=== PATIENT | male | born 1960 | race Caucasian/White ===

== ENCOUNTER 2018-02-03 18:32 | Inpatient (IN) | payer OTHER ==
[2018-02-03] VITALS (7 sets, daily range): BP systolic 98–129; BP diastolic 67–110
[~2018-02-03] VITALS: Ht 172.7 cm; Wt 85.5 kg
--- OUTSIDE RECORDS SUMMARY | 2018-02-03 18:38 | XMS REPORT ---
Author Author ROGER ANTONIO [facility] eClinicalWorks Address Unknown Phone Unavailable Care Team Providers Care Principal Programmer Name Role Phone ROGER ANTONIO CP Unavailable Allergies, Adverse Reactions, Alerts Substance Reaction Event Type N.K.D.A. Info Not Available Non Drug Allergy Problems Problem Type Condition Code Onset Dates Condition Status Problem Coronary artery disease involving [place] coronary artery of [place] heart without angina pectoris I25.10 Active Problem Cigarette nicotine dependence without complication F17.210 Active Problem Hyperlipidemia, unspecified hyperlipidemia type E78.5 Active Assessment Cigarette nicotine dependence without complication F17.210 Active Assessment Routine adult health maintenance Z00.00 Active Assessment Hyperlipidemia, unspecified hyperlipidemia type E78.5 Active Assessment Coronary artery disease involving [place] coronary artery of [place] heart without angina pectoris I25.10 Active Medications Medication Code System Code Instructions Start Date End Date Status Dosage Simvastatin [facility] [address]-67 40 mg Orally q d, hs Aug 09, 2013 1 tablet by Oral route 1 time per day Aspirin [facility] [place] [address]-20 325 MG Orally Once a day 1 tablet Atenolol [facility] [place] [address]-83 50 mg Orally Once a day Aug 09, 2013 1 tablet by Oral route 1 time per day Procedures Procedure Coding System Code Date LIPID PANEL CPT-4 11697 Feb 13, 2016 VENIPUNCT, ROUTINE* CPT-4 71089 Feb 13, 2016 COMPREHEN METABOLIC PANEL CPT-4 24781 Feb 13, 2016 Office Visit, Est Pt., Level 4 CPT-4 64166 Feb 13, 2016 Vital Signs Date/Time: Feb 13, 2016 Cardiac Monitoring Heart Rate 88 bpm Weight 207 lbs Height 68 in BMI 31.47 Index Blood Pressure Diastolic 88 mmHg Blood Pressure Systolic 152 mmHg Results No Known Results Summary Purpose eClinicalWorks Submission
--- OUTSIDE RECORDS SUMMARY | 2018-02-03 18:38 | XMS REPORT ---
Author Author ROGER ANTONIO [facility] eClinicalWorks Address Unknown Phone Unavailable Care Team Providers Care Ordnance Truck Installation Supervisor Name Role Phone ROGER ANTONIO CP Unavailable Allergies, Adverse Reactions, Alerts Substance Reaction Event Type N.K.D.A. Info Not Available Non Drug Allergy Problems Problem Type Condition Code Onset Dates Condition Status Problem Urinary tract infection, site not specified 599.0 Active Problem Contusion of unspecified site 924.9 Active Problem Hematuria, unspecified 599.70 Active Medications Medication Code System Code Instructions Start Date End Date Status Dosage Aspirin [facility] [address]-16 325 MG Orally Once a day 1 tablet Results No Known Results Summary Purpose eClinicalWorks Submission
[2018-02-03] MEDS ORDERED: ASPIRIN 81 MG CHEW (CHILDREN'S ASA) PO ONE (18:45)
[2018-02-03] MEDS ORDERED: ASPI-808 PO (18:50)
[2018-02-03 18:51] LABS: BASOPHILS % (AUTO) 0 % (0-10); EOSINOPHILS # (AUTO) 0.1 10^3/uL (0.0-0.3); EOSINOPHILS % (AUTO) 1 % (0-10); HEMATOCRIT 43 % (40-54); LYMPHOCYTES % (AUTO) 22 % (12-44); MEAN CORPUSCULAR HEMOGLOBIN 32 PG (25-34); MEAN CORPUSCULAR HGB CONC 35 G/DL (32-36); MEAN CORPUSCULAR VOLUME 91 FL (80-99); MEAN PLATELET VOLUME 11.2 FL (7.4-10.4); MONOCYTES # (AUTO) 0.7 X 10^3 (0.0-1.0); MONOCYTES % (AUTO) 7 % (0-12); NEUTROPHILS # (AUTO) 6.2 X 10^3 (1.8-7.8); NEUTROPHILS % (AUTO) 69 % (42-75); PLATELET COUNT 213 10^3/uL (130-400); RED BLOOD COUNT 4.73 10^6/uL (4.35-5.85); RED CELL DISTRIBUTION WIDTH 14.3 % (10.0-14.5); WHITE BLOOD COUNT 9.1 10^3/uL (4.3-11.0)
--- NOTE | 2018-02-03 18:54 | ED Chest Pain ---
General Chief Complaint: Chest Pain Stated Complaint: CP, HEART BURN Nursing Triage Note: PT REPORTS HE STARTED HAVING BURNING MEDIAL L CHEST PAIN UNDER L BREAST ABOUT 4-5 HRS AGO. PT REPORTS HE WAS DRINKING COFFEE AT THE TIME. PT DENIES SOA, PALPITATIONS, OR RACING HEART. Nursing Sepsis Screen: No Definite Risk Source: patient Exam Limitations: no limitations History of Present Illness Date Seen by Provider: Feb 03, 2018 Time Seen by Provider: 18:35 Initial Comments PT ARRIVES VIA POV FROM HOME C/O LEFT LOWER CHEST PAIN FOR THE PAST 4-5 HOURS BEGAN WHILE DRINKING COFFEE STATES PAIN WAS 5/10 EARLIER, IS 3/10 NOW. NO RADIATION OF PAIN NOTHING WORSENS OR SIGNIFICANTLY IMPROVES PAIN--BELCHING HELPED SLIGHTLY STATES PAIN "IS LIKE HEARTBURN--BURNING" STATES "I NEVER HAVE HEARTBURN" STATES HE HAD AN MO 8-9 YEARS AGO ( ACTUALLY IN 2009 ) "THE -MAKER" PER PT --STATES THIS PAIN IS EXACTLY THE SAME. 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 ANTONIO--HAS NOT SEEN IN OVER A YEAR Allergies and Home Medications Allergies Coded Allergies: No Known Drug Allergies (Verified , 07/26/09) Patient Home Medication List Home Medication List Reviewed: Yes Review of Systems Constitutional: no symptoms reported; No diaphoresis, No dizziness, No fever, No malaise EENTM: No Symptoms Reported Respiratory: No Symptoms Reported; Denies Cough, Denies Orthopnea, Denies Shortness of Air Cardiovascular: See HPI, Chest Pain; Denies Edema, Denies Irregular Heart Rate , Denies Lightheadedness, Denies Palpitations, Denies Syncope Gastrointestinal: No Symptoms Reported; Denies Abdominal Pain, Denies Nausea Genitourinary: No Symptoms Reported Musculoskeletal: no symptoms reported; No back pain Skin: no symptoms reported Psychiatric/Neurological: See HPI, Headache (FOR A FEW DAYS) Endocrine: No Symptoms Reported Hematologic/Lymphatic: No Symptoms Reported Past Rvdrczs-Mrregv-Acneow Hx Patient Social History Alcohol Use: Past History (HISTORY OF ABUSE, CLAIMS NONE X 30 YEARS, PER PT ON 02/03/18) Recreational Drug Use: Yes (THC, + IV METH--CLAIMS NONE FOR 30 YEARS, PER PT ON 02/03/18) Drug of Choice: THC, + IV METH USE BY HX Smoking Status: Current Everyday Smoker (1 PPD) Type Used: Cigarettes Recent Foreign Travel: No Contact w/Someone Who Travel: No Recent Infectious Disease Expo: No Recent Hopitalizations: No Physical Abuse: No Sexual Abuse: No Mistreated: No Fear: No Past Medical History Surgeries: Yes (CARDIAC CATH--STENT X 1 IN LAD IN 2009) Adenoidectomy, Cardiac, Coronary Stent, Tonsillectomy Respiratory: No Cardiac: Yes (QUIT TAKING BLOOD PRESSURE AND CHOLESTEROL MEDICATIONS YEARS AGO. MO WITH STENT X 1 IN LAD IN 2009) Coronary Artery Disease, Heart Attack, High Cholesterol, Hypertension Neurological: No Reproductive Disorders: No Genitourinary: No Gastrointestinal: No Musculoskeletal: Yes (PLANTAR FASCITIS) Endocrine: No HEENT: No Cancer: No Psychosocial: No Nursing Suicide Risk Score: 0 Integumentary: No Blood Disorders: No Physical Exam Vital Signs Vital Signs - First Documented Capillary Refill : Less Than 3 Seconds Height, Weight, BMI Height: 5'8.00" Weight: 210lbs. oz. 95.239861qk; BMI Method:Stated General Appearance: No Apparent Distress, WD/WN, Other (REEKS OF CIGARETTES) HEENT: PERRL/EOMI, Other (EDENTULOUS) Neck: Full Range of Motion, Normal Inspection, Non Tender, Supple; No Carotid Bruit, No JVD Respiratory: Chest Non Tender, Normal Breath Sounds, No Accessory Muscle Use, No Respiratory Distress Cardiovascular: Regular Rate, Rhythm, No Edema, No JVD, No Murmur, Normal Peripheral Pulses Gastrointestinal: Normal Bowel Sounds, No Organomegaly, No Pulsatile Mass, Non Tender, Soft Extremity: Normal Capillary Refill, Normal Inspection, Normal Range of Motion, Non Tender, No Calf Tenderness, No Pedal Edema Neurologic/Psychiatric: Alert, Oriented x3, No Motor/Sensory Deficits, Normal Mood/Affect, factory helper II-XII Norm as Tested Skin: Normal Color, Tattoos/Piercings (TATTOOS) Progress/Results/Core Measures Results/Orders Lab Results Laboratory Tests Test 02/03/18 18:44 02/03/18 19:44 Range/Units White Blood Count 9.1 4.3-11.0 10^3/uL Red Blood Count 4.73 4.35-5.85 10^6/uL Hemoglobin 15.0 13.3-17.7 G/DL Hematocrit 43 40-54 % Mean Corpuscular Volume 91 80-99 FL Mean Corpuscular Hemoglobin 32 25-34 PG Mean Corpuscular Hemoglobin Concent 35 32-36 G/DL Red Cell Distribution Width 14.3 10.0-14.5 % Platelet Count 213 130-400 10^3/uL Mean Platelet Volume 11.2 H 7.4-10.4 FL Neutrophils (%) (Auto) 69 42-75 % Lymphocytes (%) (Auto) 22 12-44 % Monocytes (%) (Auto) 7 0-12 % Eosinophils (%) (Auto) 1 0-10 % Basophils (%) (Auto) 0 0-10 % Neutrophils # (Auto) 6.2 1.8-7.8 X 10^3 Lymphocytes # (Auto) 2.0 1.0-4.0 X 10^3 Monocytes # (Auto) 0.7 0.0-1.0 X 10^3 Eosinophils # (Auto) 0.1 0.0-0.3 10^3/uL Basophils # (Auto) 0.0 0.0-0.1 10^3/uL Prothrombin Time 14.0 12.2-14.7 SEC INR Comment 1.1 0.8-1.4 Activated Partial Thromboplast Time 45 H 24-35 SEC Sodium Level 136 135-145 MMOL/L Potassium Level 3.8 3.6-5.0 MMOL/L Chloride Level 103 98-107 MMOL/L Carbon Dioxide Level 23 21-32 MMOL/L Anion Gap 10 5-14 MMOL/L Blood Urea Nitrogen 7 7-18 MG/DL Creatinine 0.83 0.60-1.30 MG/DL Estimat Glomerular Filtration Rate > 60 BUN/Creatinine Ratio 8 Glucose Level 100 70-105 MG/DL Calcium Level 9.1 8.5-10.1 MG/DL Magnesium Level 1.8 1.8-2.4 MG/DL Total Bilirubin 0.4 0.1-1.0 MG/DL Aspartate Amino Transf (AST/SGOT) 13 5-34 U/L Alanine Aminotransferase (ALT/SGPT) 14 0-55 U/L Alkaline Phosphatase 74 40-136 U/L Total Creatine Kinase 189 30-200 U/L Creatine Kinase MB 3.3 <6.6 NG/ML Myoglobin 106.9 H 10.0-92.0 NG/ML Troponin I < 0.30 <0.30 NG/ML B-Type Natriuretic Peptide 28.6 <100.0 PG/ML Total Protein 6.8 6.4-8.2 GM/DL Albumin 4.2 3.2-4.5 GM/DL Amylase Level 58 25-125 U/L Lipase 12 8-78 U/L Serum Alcohol < 10 <10 MG/DL Urine Color YELLOW Urine Clarity CLEAR Urine pH 7 5-9 Urine Specific [place] 1.010 L 1.016-1.022 Urine Protein NEGATIVE NEGATIVE Urine Glucose (UA) NEGATIVE NEGATIVE Urine Ketones NEGATIVE NEGATIVE Urine Nitrite NEGATIVE NEGATIVE Urine Bilirubin NEGATIVE NEGATIVE Urine Urobilinogen NORMAL NORMAL MG/DL Urine Leukocyte Esterase 1+ H NEGATIVE Urine RBC (Auto) 2+ H NEGATIVE Urine RBC 2-5 H /HPF Urine WBC 0-2 /HPF Urine Crystals NONE /LPF Urine Bacteria NONE /HPF Urine Casts NONE /LPF Urine Mucus NEGATIVE /LPF Urine Culture Indicated NO Urine Opiates Screen NEGATIVE NEGATIVE Urine Oxycodone Screen NEGATIVE NEGATIVE Urine Methadone Screen NEGATIVE NEGATIVE Urine Propoxyphene Screen NEGATIVE NEGATIVE Urine Barbiturates Screen NEGATIVE NEGATIVE Ur Tricyclic Antidepressants Screen NEGATIVE NEGATIVE Urine Phencyclidine Screen NEGATIVE NEGATIVE Urine Amphetamines Screen NEGATIVE NEGATIVE Urine Methamphetamines Screen NEGATIVE NEGATIVE Urine Benzodiazepines Screen NEGATIVE NEGATIVE Urine Cocaine Screen NEGATIVE NEGATIVE Urine Cannabinoids Screen NEGATIVE NEGATIVE My Orders Orders - EVA PERDUE DO Cbc With Automated Diff (02/03/18 18:38) Magnesium (02/03/18 18:38) Chest 1 View, Ap/Pa Only (02/03/18 18:38) Ekg Tracing (02/03/18 18:38) Cardiac Profile 1 (02/03/18 18:38) Comprehensive Metabolic Panel (02/03/18 18:38) Myoglobin Serum (02/03/18 18:38) Protime With Inr (02/03/18 18:38) Partial Thromboplastin Time (02/03/18 18:38) O2 (02/03/18 18:38) Monitor-Rhythm Ecg Trace Only (02/03/18 18:38) Aspirin Chewable Tablet (Baby Aspirin Ch (02/03/18 18:45) Nitroglycerin 0.4 Mg Btl 25's (Nitrostat (02/03/18 18:45) Saline Lock/Iv-Start (02/03/18 18:38) Creatine Kinase (02/03/18 18:38) Creatine Kinase Mb (02/03/18 18:38) Lipase (02/03/18 18:38) Amylase (02/03/18 18:38) BNP (02/03/18 18:38) Alcohol (02/03/18 18:47) Drug Screen Stat (Urine) (02/03/18 18:47) Ua Culture If Indicated (02/03/18 18:47) Clopidogrel Tablet (Plavix Tablet) (02/03/18 19:45) Medications Given in ED Current Medications Medications Dose Ordered Sig/Adams Route Start Time Stop Time Status Last Admin Dose Admin Clopidogrel Bisulfate 300 mg ONCE ONCE PO 02/03/18 19:45 02/03/18 19:46 DC 02/03/18 19:56 300 MG Nitroglycerin 0.4 mg UD PRN SL 02/03/18 18:45 02/03/18 19:47 DC 02/03/18 19:42 0.4 MG Vital Signs/I&O 02/03/18 02/03/18 18:37 18:37 Temp 98.9 Pulse 75 Resp 20 B/P (MAP) 161/45 (83) Pulse Ox 98 O2 Delivery Room Air Room Air Blood Pressure Mean: 83 Progress Progress Note : Progress Note GIVEN NTG SL X 3 WITH RESOLUTION OF CHEST PAIN UNEVENTFUL ER STAY Initial ECG Impression Date: Feb 03, 2018 Initial ECG Impression Time: 18:40 Initial ECG Rate: 71 Initial ECG Rhythm: Normal Sinus Initial ECG Impression: Nonspecific Changes Initial ECG Comparisson: No Previous ECG Available Diagnostic Imaging Comments CXR--NO ACUTE PROCESS, PER RADIOLOGIST REPORT @ 1933 Reviewed: Reviewed by Me Departure Communication (Admissions) 1936--SPOKE WITH DR. ZUNIGA, CROSS COUNTRY/TRACK AND FIELD COACH AEROSPACE PROJECT ENGINEER. WILL SEE PT IN CONSULT. ORDERS NOTED FOR PLAVIX 1939--SPOKE WITH DR. OLIVEROS, HOSPITALIST AEROSPACE PROJECT ENGINEER, ACCEPTS PT FOR ADMIT. Impression Primary Impression: Chest pain Additional Impressions: HX OF MO WITH STENT Smoker Disposition: ADMITTED INPATIENT Condition: Improved Admissions Decision to Admit Reason: Admit from ER (General) Decision to Admit/Date: Feb 03, 2018 Time/Decision to Admit Time: 19:40 Departure-Patient Inst. Referrals: ROGER ANTONIO MD (PCP) Primary Care Physician EVA PERDUE DO Feb 03, 2018 18:54
[2018-02-03 19:03] LABS: INR 1.1 (0.8-1.4)
[2018-02-03] MEDS: NITROGLYCERIN 0.4 MG SL TABS BTL 25'S SL PRN ×3 (19:05→19:42)
[2018-02-03 19:11] LABS: ALANINE AMINOTRANSFERASE 14 U/L (0-55); ALBUMIN 4.2 GM/DL (3.2-4.5); ALKALINE PHOSPHATASE 74 U/L (40-136); AMYLASE 58 U/L (25-125); BILIRUBIN,TOTAL 0.4 MG/DL (0.1-1.0); BUN/CREATININE RATIO 8; CALCIUM 9.1 MG/DL (8.5-10.1); CARBON DIOXIDE 23 MMOL/L (21-32); CHLORIDE 103 MMOL/L (98-107); CREATINE KINASE 189 U/L (30-200); CREATININE SERUM 0.83 MG/DL (0.60-1.30); GFR ESTIMATED > 60; GLUCOSE 100 MG/DL (70-105); LIPASE 12 U/L (8-78); MAGNESIUM 1.8 MG/DL (1.8-2.4); POTASSIUM 3.8 MMOL/L (3.6-5.0); SODIUM 136 MMOL/L (135-145); TOTAL PROTEIN 6.8 GM/DL (6.4-8.2)
--- NOTE | 2018-02-03 19:13 | Diagnostic Imaging Report ---
CLINICAL INDICATION: Patient with chest pain. EXAM: Portable chest x-ray, upright view. COMPARISONS: Chest x-ray dated 07/31/2009. FINDINGS: Lungs/pleura: Lungs are clear. There is no pneumothorax. There is no pleural effusion. Mediastinum: Unremarkable. Pulmonary vasculature: Unremarkable. Heart: Unremarkable. Bones/extrathoracic soft tissue: Unremarkable. IMPRESSION: There is no radiographic evidence of acute cardiopulmonary process. Dictated by: Dictated on workstation # [id number]
[2018-02-03 19:19] LABS: CREATINE KINASE MB 3.3 NG/ML (<6.6); MYOGLOBIN SERUM 106.9 NG/ML (10.0-92.0)
[2018-02-03] MEDS ORDERED: CLOPIDOGREL 300 MG (PLAVIX) TABLET PO ONE (19:45)
[2018-02-03 19:55] LABS: BILIRUBIN,URINE NEGATIVE (NEGATIVE); CLARITY,URINE CLEAR; COLOR,URINE YELLOW; GLUCOSE, URINE (UA) NEGATIVE (NEGATIVE); KETONES,URINE NEGATIVE (NEGATIVE); LEUKOCYTE ESTERASE ,URINE 1+ (NEGATIVE); NITRITE,URINE NEGATIVE (NEGATIVE); PH,URINE 7 (5-9); PROTEIN,URINE NEGATIVE (NEGATIVE); UROBILINOGEN,URINE NORMAL (NORMAL)
[2018-02-03 20:06] LABS: AMPHETAMINE SCREEN, URINE NEGATIVE (NEGATIVE); BARBITURATE SCREEN URINE NEGATIVE (NEGATIVE); BENZODIAZEPINES SCREEN URINE NEGATIVE (NEGATIVE); CANNABINOID SCREEN, URINE NEGATIVE (NEGATIVE); COCAINE SCREEN URINE NEGATIVE (NEGATIVE); METHADONE STAT NEGATIVE (NEGATIVE); METHAMPHETAMINE SCREEN URINE S NEGATIVE (NEGATIVE); OPIATE SCREEN URINE NEGATIVE (NEGATIVE); OXYCODONE STAT NEGATIVE (NEGATIVE); PROPOXYPHENE STAT NEGATIVE (NEGATIVE); TRICYCLIC ANTIDEPRESSANTS SCRE NEGATIVE (NEGATIVE)
[2018-02-03 20:09] LABS: WBC,URINE 0-2 /HPF
[2018-02-03] MEDS ORDERED: ONDANSETRON 4 MG/2 ML (SDV) Z0FRAN IV PRN (21:45)
[2018-02-03] MEDS ORDERED: ACETAMINOPHEN 500 MG TAB (TYLENOL) PO PRN (21:45)
[2018-02-03] MEDS: NICOTINE 21 MG (NICODERM) PATCH TD SCH (21:52)
[2018-02-03] MEDS ORDERED: NITROGLYCERIN 0.4 MG SL TABS BTL 25'S SL PRN (22:00)
[2018-02-04] VITALS (18 sets, daily range): BP systolic 94–135; BP diastolic 51–93
[2018-02-04] MEDS ORDERED: CLOPIDOGREL 300 MG (PLAVIX) TABLET PO ONE (01:30)
[2018-02-04 04:36] LABS: BASOPHILS % (AUTO) 1 % (0-10); EOSINOPHILS # (AUTO) 0.2 10^3/uL (0.0-0.3); EOSINOPHILS % (AUTO) 3 % (0-10); HEMATOCRIT 43 % (40-54); HEMOGLOBIN 14.4 G/DL (13.3-17.7); LYMPHOCYTES # (AUTO) 2.2 X 10^3 (1.0-4.0); LYMPHOCYTES % (AUTO) 26 % (12-44); MEAN CORPUSCULAR HEMOGLOBIN 31 PG (25-34); MEAN CORPUSCULAR HGB CONC 34 G/DL (32-36); MEAN CORPUSCULAR VOLUME 91 FL (80-99); MEAN PLATELET VOLUME 11.6 FL (7.4-10.4); MONOCYTES # (AUTO) 0.7 X 10^3 (0.0-1.0); MONOCYTES % (AUTO) 8 % (0-12); NEUTROPHILS # (AUTO) 5.4 X 10^3 (1.8-7.8); NEUTROPHILS % (AUTO) 63 % (42-75); PLATELET COUNT 198 10^3/uL (130-400); RED BLOOD COUNT 4.69 10^6/uL (4.35-5.85); RED CELL DISTRIBUTION WIDTH 14.5 % (10.0-14.5); WHITE BLOOD COUNT 8.6 10^3/uL (4.3-11.0)
[2018-02-04 05:06] LABS: ALANINE AMINOTRANSFERASE 11 U/L (0-55); ALBUMIN 3.8 GM/DL (3.2-4.5); ALKALINE PHOSPHATASE 70 U/L (40-136); BILIRUBIN,TOTAL 0.5 MG/DL (0.1-1.0); BUN/CREATININE RATIO 6; CALCIUM 9.1 MG/DL (8.5-10.1); CARBON DIOXIDE 24 MMOL/L (21-32); CHLORIDE 108 MMOL/L (98-107); CHOLESTEROL 213 MG/DL (< 200); CREATININE SERUM 0.81 MG/DL (0.60-1.30); GFR ESTIMATED > 60; GLUCOSE 98 MG/DL (70-105); HDL CHOLESTEROL 25 MG/DL (40-60); POTASSIUM 3.8 MMOL/L (3.6-5.0); SODIUM 141 MMOL/L (135-145); TRIGLYCERIDES 251 MG/DL (<150); VLDL CHOLESTEROL 50 MG/DL (5-40)
[2018-02-04] MEDS ORDERED: NS IV 1000 ML 1,000 ML ONE (08:05)
[2018-02-04] MEDS ORDERED: LIDOCAINE 1% INJ 20 ML 20 ML VIAL ONE (08:05)
[2018-02-04] MEDS ORDERED: HEParin (CATH LAB) 2,000 ML IV ONE (08:06)
[2018-02-04] MEDS ORDERED: CLOPIDOGREL 75 MG (PLAVIX) TABLET PO SCH (09:00)
[2018-02-04] MEDS ORDERED: ASPIRIN E.C. 81 MG (ECOTRIN) TAB PO SCH (09:00)
[2018-02-04] MEDS: NICOTINE 21 MG (NICODERM) PATCH TD SCH (09:38)
--- NOTE | 2018-02-04 11:16 | History & Physical-Hospitalist ---
History of Present Illness HPI/Chief Complaint CC: Chest pain HPI: This is a 57-year-old white male who was last seen a [facility] 2 years ago but still considers [facility] his primary care provider who presented to the emergency room with complaints of very severe heartburn. He reports that his stomach and lungs for burning and upon assessment in the ER he was placed in a chest pain protocol. He was given 3 nitroglycerin tablets 5 minutes apart and that ultimately improve the pain. He has been noncompliant since his cardiac stent was placed in 2009 and no longer takes hypertensive medication or hyperlipidemia medication. He continues to smoke but very motivated to quit and feels like the nicotine patch placed last night has really helped him. He has not had any problems since 2009 when the stent was placed. Since admission he was noted to have an elevated troponin confirming non-ST elevation OK. He will have cardiac catheterization for further risk stratification and likely stent placement. I have arranged a close follow-up even prior to procedure and discharge planning and secured [facility]. Source: patient, family Exam Limitations: no limitations Date Seen 02/04/18 Time Seen by Provider: 10:30 Attending Physician Hipolito Gatica MD PCP Hipolito Gatica MD Referring Physician Date of Admission Feb 03, 2018 at 19:54 Home Medications & Allergies Home Medications Reviewed patient Home Medication Reconciliation performed by pharmacy medication reconciliations therapeutic massage technician and/or nursing. Patients Allergies have been reviewed. Allergies Allergies Coded Allergies No Known Drug Allergies (Verified07/26/09) Past Fnywgpw-Lkapyy-Isffcu Hx Past Med/Social Hx: Reviewed Nursing Past Med/Soc Hx, Reviewed and Corrections made Patient Social History Marrital Status: cohabiting (with ex-) Alcohol Use: Past History Recreational Drug Use: Yes (THC, + IV METH--CLAIMS NONE FOR 30 YEARS, PER PT ON 02/03/18) Drug of Choice: THC, + IV METH USE BY HX Smoking Status: Current Everyday Smoker Type Used: Cigarettes Physical Abuse Screen: No Sexual Abuse: No Recent Foreign Travel: No Contact w/other who traveled: No Recent Hopitalizations: No Recent Infectious Disease Expo: No Past Medical History Surgeries: Adenoidectomy, Cardiac, Coronary Stent (2009), Tonsillectomy Cardiac: Coronary Artery Disease, Heart Attack, High Cholesterol, Hypertension Reproductive: No History of Blood Disorders: No Family History Alcoholism 19 FATHER Cardiovascular disease 19 FATHER Dementia 19 MOTHER Hypertension 19 FATHER Heart Disease Review of Systems Constitutional: see HPI EENTM: no symptoms reported Respiratory: short of breath Cardiovascular: chest pain Gastrointestinal: heartburn, nausea Genitourinary: no symptoms reported Musculoskeletal: no symptoms reported Skin: no symptoms reported Psychiatric/Neurological: No Symptoms Reported All Other Systems Reviewed Negative Unless Noted: Yes Physical Exam Physical Exam Vital Signs Vital Signs - First Documented Capillary Refill : Less Than 3 Seconds Height, Weight, BMI Height: 5'8.00" Weight: 188lbs. 9.0oz. 85.347242vq; 28.8 BMI Method:Stated General Appearance: No Apparent Distress, WD/WN, Chronically ill Eyes: Bilateral Eye Normal Inspection, Bilateral Eye PERRL HEENT: PERRL/EOMI, TMs Normal, Normal ENT Inspection, Pharynx Normal Neck: Full Range of Motion, Normal Inspection, Non Tender, Supple, Carotid Bruit Respiratory: Chest Non Tender, Lungs Clear, Normal Breath Sounds, No Accessory Muscle Use, No Respiratory Distress Cardiovascular: Regular Rate, Rhythm, No Edema, No Gallop, No JVD, No Murmur, Normal Peripheral Pulses Gastrointestinal: Normal Bowel Sounds, No Organomegaly, No Pulsatile Mass, Non Tender, Soft Back: Normal Inspection, No CVA Tenderness, No Vertebral Tenderness Extremity: Normal Capillary Refill, Normal Inspection, Normal Range of Motion, Non Tender, No Calf Tenderness, No Pedal Edema Neurologic/Psychiatric: Alert, Oriented x3, No Motor/Sensory Deficits, Normal Mood/Affect Skin: Normal Color, Warm/Dry Lymphatic: No Adenopathy Results Results/Procedures Labs Laboratory Tests 02/03/18 18:44 02/04/18 03:50 Patient resulted labs reviewed. Assessment/Plan Admission Diagnosis Non-ST elevation OK Known CAD patient with prior stent placed in 2009 Noncompliance with medication and treatment plans in the past Hyperlipidemia Hypertriglyceridemia Hypertension Current smoker Admission Status: Inpatient Order (span 2 midnights) Reason for Inpatient Admission: Acute NSTEMI will require cath and stent placement and close ICU monitoring Assessment and Plan Plan: Cardiac catheterization for presumed intervention with stent placement Plavix and statin already sent to [facility] pharmacy Secured [facility] 02[facility]18 at 120pm. Diagnosis/Problems Diagnosis/Problems (1) Non-ST elevated myocardial infarction Status: Acute (2) Chest pain Status: Acute (3) Non-compliance Status: Chronic (4) Hypertension Status: Chronic Qualifiers: Hypertension type: essential hypertension Qualified Codes: I10 - Essential (primary) hypertension (5) Hyperlipidemia Status: Chronic Qualifiers: Hyperlipidemia type: mixed hyperlipidemia Qualified Codes: E78.2 - Mixed hyperlipidemia (6) Smoker Status: Chronic Clinical Quality Measures AMI/AHF: ASA po Prior to arrival: Yes (325MG -1600) DVT/VTE Risk/Contraindication: Risk Factor Score Per Nursin RFS Level Per Nursing on Admit: 2=Moderate ARUN OLIVEROS DO Feb 04, 2018 11:16
[2018-02-04] MEDS ORDERED: NICO-588 TD (11:20)
[2018-02-04] MEDS ORDERED: ATOR40TA PO (11:20)
[2018-02-04] MEDS ORDERED: ASPI-983 PO (11:20)
[2018-02-04] MEDS ORDERED: NITR0.4T42 SL (11:20)
[2018-02-04] MEDS ORDERED: CLOP75TA28 PO (11:20)
--- NOTE | 2018-02-04 14:28 | Consultation-Cardiology ---
HPI-Cardiology Cardiology Consultation: Date of Consultation 02/04/18 Date of Admission Attending Physician Hipolito Gatica MD Admitting Physician Hipolito Gatica MD Consulting Physician Gary CORTES MD HPI: Time Seen by Provider: 09:40 Chief Complaint: Chest pain This is a 57-year-old gentleman who follows with [facility]. However he has not been seen in the last couple of years. He presented to the ER with complains of chest pain. He was given nitroglycerin which improved his chest pain after 3 sublingual tablets. He has previous history of OK and PCI done in 2009 but has been noncompliant and does not follow with physicians. He also is an active smoker. On my examination he did not have any further chest pain. Review of Systems-Cardiology Review of Systems Constitutional: As described under HPI; No As described under HPI, No no symptoms reported, No chills, No fever, No lightheadedness Eyes: No As described under HPI, No no symptoms reported, No blindness, No blurred vision, No contact lenses, No drainage, No decreased acuity, No foreign body sensation, No pain, No vision change Ears/Nose/Throat: No As described under HPI, No no symptoms reported, No chronic hearing loss, No ear discharge, No ear pain, No nasal drainage, No ulcerations Respiratory: No no symptoms reported; As described under HPI; No As described under HPI, No cough, No orthopnea, No shortness of breath, No SOB with excertion Cardiovascular: No no symptoms reported; As described under HPI; No As described under HPI; chest pain; No edema, No irregular heart rate, No lightheadedness, No palpitations Gastrointestinal: No no symptoms reported, No As described under HPI, No abdomen distended, No abdominal pain, No blood streaked bowels, No constipation , No diarrhea, No nausea, No vomiting, No stool coloration changes Genitourinary: No As described under HPI, No burning, No dysuria, No discharge , No frequency, No flank pain, No hematuria, No urgency Musculoskeletal: No no symptoms reported, No As describe under HPI, No back pain, No gout, No joint pain, No joint swelling, No muscle pain, No muscle stiffness, No neck pain, No other Skin: No no symptoms reported, No As described under HPI, No change in color, No change in hair/nails, No dryness, No lesions, No lumps, No rash, No other, No skin related problems, No ulcerations, No rash on exposed areas, No ulcerations on exposed areas Psychiatric/Neurological: No anxiety, No depression, No seizure, No focal weakness, No syncope Hematologic: No bleeding abnormalities All Other Systems Reviewed Negative Unless Noted: Yes [id number] Hx Patient Social History Marrital Status: cohabiting (with ex-) Alcohol Use: Past History Recreational Drug Use: Yes (THC, + IV METH--CLAIMS NONE FOR 30 YEARS, PER PT ON 02/03/18) Drug of Choice: THC, + IV METH USE BY HX Smoking Status: Current Everyday Smoker Type Used: Cigarettes Recent Foreign Travel: No Recent Infectious Disease Expo: No Physical Abuse Screen: No Sexual Abuse: No Past Medical History PMH As described under Assessment. Family Medical History Family History: Alcoholism 19 FATHER Cardiovascular disease 19 FATHER Dementia 19 MOTHER Hypertension 19 FATHER Allergies and Home Medications Allergies Coded Allergies: No Known Drug Allergies (Verified , 07/26/09) Home Medications Aspirin 81 Mg Tablet.dr, 81 MG PO DAILY Prescribed by: ARUN OLIVEROS on 02/04/18 112 Atorvastatin Calcium 40 Mg Tablet, 40 MG PO DAILY Prescribed by: ARUN OLIVEROS on 02/04/18 112 Clopidogrel Bisulfate 75 Mg Tablet, 75 MG PO DAILY Prescribed by: ARUN OLIVEROS on 02/04/18 112 Nicotine 1 Each Patch.td24, 21 MG TD DAILY Prescribed by: ARUN OLIVEROS on 02/04/18 112 Nitroglycerin 0.4 Mg Tab.subl, 0.4 MG SL NEEDED Prescribed by: ARUN OLIVEROS on 02/04/18 112 Patient Home Medication List Home Medication List Reviewed: Yes Physical Exam-Cardiology Physical Exam Vital Signs/I&O 02/04/18 02/04/18 02/04/18 02/04/18 04:00 04:00 07:00 07:00 Pulse 66 60 73 B/P (MAP) 103/63 (76) 113/70 (84) Pulse Ox 99 98 96 O2 Delivery Room Air Room Air Room Air 02/04/18 02/04/18 02/04/18 02/04/18 08:00 08:00 08:00 09:00 Temp 99.2 Pulse 64 64 B/P (MAP) 111/85 (94) 120/68 (85) Pulse Ox 95 99 97 O2 Delivery Room Air Room Air Room Air 02/04/18 02/04/18 02/04/18 09:00 12:00 12:00 Temp 98.7 Pulse Ox 97 99 O2 Delivery Room Air Room Air 02/04/18 00:00 Intake Total 100 ml Balance 100 ml Capillary Refill : Less Than 3 Seconds Constitutional: appears stated age, AAO x 3; No apparent distress; well- developed, well-nourished HEENT: PERRL; No normal ENT inspection, No TMs normal, No pharynx normal, No scleral icterus (R), No scleral icterus (L), No pale conjunctivae (R), No pale conjunctivae (L), No photophobia, No TM abnormal (R), No TM abnormal (L), No pharyngeal erythema, No tonsillar exudate, No other, No discharge, No EOMI; hearing is well preserved; No hard of hearing; oral hygience is good; No ulceration, No xanthelasmas are seen Neck: No non-tender, No full range of motion, No supple, No normal inspection, No carotid bruit, No limited range of motion, No lymphadenopathy (R), No lymphadenopathy (L), No tender lateral, No tender midline, No thyromegaly, No other; carotid pulses are 2 + bilaterally; No with good upstrokes Respiratory: No accessory muscle use, No respiratory distress, No chest tender , No chest expansion is symmetric; chest is bilaterally symmetric; No lungs clear to percussion; lungs clear to auscultation; No crackles, No rhonchi, No rales, No stridor, No wheezing, No pleural rub, No other Cardiovascular: regular rate-rhythm; No irregularly irregular, No extra beats, No parasternal heave is noted, No JVD, No edema, No bradycardia, No tachycardia , No point of maximal impulse, No cardiac thrills are palpable; S1 and S2; No gallop/S3, No gallop/S4, No diastolic murmur, No systolic murmur, No friction rub, No click, No other Gastrointestinal: No tender, No soft, No round, No distended, No pulsatile mass , No organomegaly, No guarding, No rebound, No tenderness, No hernia, No mass, No audible bowel sounds, No abnormal bowel sounds, No abdominal bruits, No spleenomegaly, No other Rectal: deferred Extremities: No normal range of motion, No non-tender, No normal inspection, No pedal edema, No calf tenderness, No normal capillary refill, No pelvis stable , No calf tenderness, No inflammation, No pedal edema, No slow capillary refill , No swelling, No other, No abrasion, No clubbing, No cyanosis, No ecchymosis, No laceration, No no lower extremity edema bilateral, No significant edema, No tenderness, No wound Neurologic/Psychiatric: no motor/sensory deficits, alert, normal mood/affect, oriented x 3, power is 5/5 both on sides Skin: No normal color, No warm/dry, No cyanosis, No cool, No diaphoresis, No damp, No ecchymosis, No jaundice, No mottled, No pallor, No rash, No tattoos/ piercings, No ulcerations, No rash on exposed areas, No ulcerations on exposed areas, No other Data Review Labs Laboratory Tests 02/03/18 18:44: White Blood Count 9.1, Red Blood Count 4.73, Hemoglobin 15.0, Hematocrit 43, Mean Corpuscular Volume 91, Mean Corpuscular Hemoglobin 32, Mean Corpuscular Hemoglobin Concent 35, Red Cell Distribution Width 14.3, Platelet Count 213, Mean Platelet Volume 11.2H, Neutrophils (%) (Auto) 69, Lymphocytes (%) (Auto) 22 , Monocytes (%) (Auto) 7, Eosinophils (%) (Auto) 1, Basophils (%) (Auto) 0, Neutrophils # (Auto) 6.2, Lymphocytes # (Auto) 2.0, Monocytes # (Auto) 0.7, Eosinophils # (Auto) 0.1, Basophils # (Auto) 0.0, Prothrombin Time 14.0, INR Comment 1.1, Activated Partial Thromboplast Time 45H, Sodium Level 136, Potassium Level 3.8, Chloride Level 103, Carbon Dioxide Level 23, Anion Gap 10, Blood Urea Nitrogen 7, Creatinine 0.83, Estimat Glomerular Filtration Rate > 60 , BUN/Creatinine Ratio 8, Glucose Level 100, Calcium Level 9.1, Magnesium Level 1.8, Total Bilirubin 0.4, Aspartate Amino Transf (AST/SGOT) 13, Alanine Aminotransferase (ALT/SGPT) 14, Alkaline Phosphatase 74, Total Creatine Kinase 189, Creatine Kinase MB 3.3, Myoglobin 106.9H, Troponin I < 0.30, B-Type Natriuretic Peptide 28.6, Total Protein 6.8, Albumin 4.2, Amylase Level 58, Lipase 12, Serum Alcohol < 10 02/03/18 19:44: Urine Color YELLOW, Urine Clarity CLEAR, Urine pH 7, Urine Specific [place] 1.010L, Urine Protein NEGATIVE, Urine Glucose (UA) NEGATIVE, Urine Ketones NEGATIVE, Urine Nitrite NEGATIVE, Urine Bilirubin NEGATIVE, Urine Urobilinogen NORMAL, Urine Leukocyte Esterase 1+H, Urine RBC (Auto) 2+H, Urine RBC 2-5H, Urine WBC 0-2, Urine Crystals NONE, Urine Bacteria NONE, Urine Casts NONE, Urine Mucus NEGATIVE, Urine Culture Indicated NO, Urine Opiates Screen NEGATIVE , Urine Oxycodone Screen NEGATIVE, Urine Methadone Screen NEGATIVE, Urine Propoxyphene Screen NEGATIVE, Urine Barbiturates Screen NEGATIVE, Ur Tricyclic Antidepressants Screen NEGATIVE, Urine Phencyclidine Screen NEGATIVE, Urine Amphetamines Screen NEGATIVE, Urine Methamphetamines Screen NEGATIVE, Urine Benzodiazepines Screen NEGATIVE, Urine Cocaine Screen NEGATIVE, Urine Cannabinoids Screen NEGATIVE 02/04/18 00:35: Troponin I 0.67*H 02/04/18 03:50: White Blood Count 8.6, Red Blood Count 4.69, Hemoglobin 14.4, Hematocrit 43, Mean Corpuscular Volume 91, Mean Corpuscular Hemoglobin 31, Mean Corpuscular Hemoglobin Concent 34, Red Cell Distribution Width 14.5, Platelet Count 198, Mean Platelet Volume 11.6H, Neutrophils (%) (Auto) 63, Lymphocytes (%) (Auto) 26 , Monocytes (%) (Auto) 8, Eosinophils (%) (Auto) 3, Basophils (%) (Auto) 1, Neutrophils # (Auto) 5.4, Lymphocytes # (Auto) 2.2, Monocytes # (Auto) 0.7, Eosinophils # (Auto) 0.2, Basophils # (Auto) 0.0, Sodium Level 141, Potassium Level 3.8, Chloride Level 108H, Carbon Dioxide Level 24, Anion Gap 9, Blood Urea Nitrogen 5L, Creatinine 0.81, Estimat Glomerular Filtration Rate > 60, BUN/ Creatinine Ratio 6, Glucose Level 98, Calcium Level 9.1, Total Bilirubin 0.5, Aspartate Amino Transf (AST/SGOT) 18, Alanine Aminotransferase (ALT/SGPT) 11, Alkaline Phosphatase 70, Total Protein 6.0L, Albumin 3.8, Triglycerides Level 251H, Cholesterol Level 213H, LDL Cholesterol Direct 139H, VLDL Cholesterol 50H , HDL Cholesterol 25L ECG Impression ECG Initial ECG Rhythm: Normal Sinus Initial ECG Impression: Normal, Nonspecific Changes Comment Anterior lateral T-wave abnormalities. A/P-Cardiology Assessment/Admission Diagnosis Non-STEMI, Active smoking, Hyperlipidemia, Hypertension Plan Non-STEMI: Chest pain with positive troponin. Coronary angiography today. Aspirin bolus, Plavix bolus. Request echocardiogram. Active smoking: Strongly recommended to quit. Hyperlipidemia: High-dose Lipitor will be started. Hypertension: We'll start BRIAN inhibitor and beta yeison. Thank you for your consultation. Please call me if you have any questions. Ruth Cortes MD, FACP, FACC, FSCAI, FHRS, CCDS Interventional Cardiology Cardiac Electrophysiology Vascular Medicine and Endovascular Interventions Clinical Quality Measures AMI/AHF: ASA po Prior to arrival: Yes (325MG -1600) DVT/VTE Risk/Contraindication: Risk Factor Score Per Nursin RFS Level Per Nursing on Admit: 2=Moderate Gary CORTES MD Feb 04, 2018 2:28 pm
[2018-02-04] MEDS ORDERED: MIDAZOLAM 5 MG/5 ML (VERSED) VIAL ONE (15:52)
[2018-02-04] MEDS ORDERED: fentaNYL INJECTION 100 MCG/2 ML AMP ONE (15:52)
[2018-02-04] MEDS ORDERED: NITRO DRIP 25000 MCG/D5W 250 ML IV ONE (16:15)
[2018-02-04] MEDS ORDERED: VERAPAMIL 5 MG/2 ML (CALAN) VIAL IV ONE (16:15)
[2018-02-04] MEDS ORDERED: HEParin 1000 UNIT/ML (10ML VIAL) FOR BOLUS ONE (16:15)
[2018-02-04] MEDS ORDERED: diphenhydrAMINE 50 MG/ML INJ (BENADRYL) ONE (16:23)
[2018-02-04] MEDS ORDERED: ADENOSINE 3 MG/1 ML (ADENOSCAN) 30ML VIAL IV ONE ×2 (16:34→16:46)
[2018-02-04] MEDS ORDERED: NS IV 1000 ML 1,000 ML IV SCH (17:15)
[2018-02-04] MEDS ORDERED: PATIENT MAY USE OWN MEDS, ALL PO SCH (17:15)
--- NOTE | 2018-02-04 17:16 | Cardiac Procedure Note-CS/ASA ---
Pre-Procedure Note Pre-Op Procedure Note H&P Reviewed The H&P was reviewed, patient examined and no changes noted. Date H&P Reviewed: Feb 04, 2018 Time H&P Reviewed: 15:50 Conscious Sedation Pre-Proced Time Reviewed: 15:50 ASA Class: 3 Airway Mallampati Classification: (king salmon appropriate class) I. II. III, IV Lungs Heart ASA score ASA 1: a normal healthy patient ASA 2: a patient with a mild systemic disease (mid diabetes, controlled hypertension, obesity ASA 3: a patient with a severe systemic disease that limits activity (angina , COPD, prior Myocardial infarction) ASA 4: a patient with an incapacitating disease that is a constant threat to life (CHF, renal failure) ASA 5: a moribund patient not expected to survive 24 hrs. (ruptured aneurysm) ASA 6: a declared brain patient whose organs are being harvested. For emergent operations, add the letter E after the classification Grade 1 Sedation Plan: Analgesia, Amnesia, Plan communicated to team members, Discussed options with patient/fam, Discussed risks with patient/fam Note The patient is an appropriate candidate to undergo the planned procedure, sedation, and anesthesia. The patient immediately re-assessed prior to indication. Gary ZUNIGA MD Feb 04, 2018 5:16 pm
--- NOTE | 2018-02-04 17:22 | Coronary Angiography Report ---
Coronary Angiography Report DATE OF PROCEDURE: 02/04/18 INDICATION: Non-STEMI. PREOPERATIVE DIAGNOSIS: Non-STEMI. POSTOPERATIVE DIAGNOSIS: Moderate multivessel CAD. No PCI required. HISTORY: This is a 57-year-old gentleman with history of active smoking who presented with chest pain. He has previous history of WA with a stent in the LAD. Positive troponin and therefore working diagnosis is non-ST elevation WA. Therefore, the patient was scheduled for coronary angiography. PROCEDURES PERFORMED: 1.Coronary angiography. 2.Left heart catheterization. 3. Aortic arch angiography. 4. FFR to RCA. 5. FFR to left circumflex artery. COMPLICATIONS: None. SPECIMENS: None. ESTIMATED BLOOD LOSS: 10 mL ANESTHESIA: Conscious sedation ANTICOAGULATION: IV heparin CONTRAST: 170 mL. FLUOROSCOPY: 17.2 minutes. FLOUROSCOPY DOSE: 1160 MGY. PROCEDURE DETAILS: The patient is a 57 male and was brought to the supervisor dental laboratory after informed consent was taken. All the risks and complications were explained in detail; this included the risk of bleeding, vascular damage, stroke , WA and even . The patient was draped and prepped in the usual sterile fashion. Access was gained in the right radial artery with a 6 [place] sheath. Coronary angiography and left heart catheterization was performed with the [place] catheter. FINDINGS: 1.Left main: Patent. 2.LAD: Patent proximal stent with mild ISR. Mild mid disease. 3.Left circumflex artery: Moderate disease in the midsegment. Stenosis severity 50 percent. 4.RCA: Moderate disease in the midsegment. Stenosis severity 50 percent. 5.Left heart catheterization: LV pressure 110/0 mmHg. LVEDP 9 mmHg. Aortic pressure 110/75 mmHg. Normal LV function with no wall motion abnormalities. No gradient across the aortic valve. 6. Aortic arch angiogram: No evidence of dissection or aneurysm. Patent proximal segments of the great arteries including brachiocephalic artery, subclavian artery, common carotid artery. Recommendations: 1. FFR to mid RCA is recommended. 2. FFR to mid left circumflex artery is recommended. FFR details: We used the same [place] catheter, pressure wire and IV heparin for anticoagulation. One ACT was done which was 302 seconds. We crossed the lesion in the mid RCA. The pressure wire tip was placed in the distal RCA. Adenosine was started at 140 g per KG per minute. Lowest FFR was 0.90 which is acceptable therefore PCI was deferred. The wire was taken out and post-FFR angiogram did not show any complication. We then used the same [place] catheter and crossed the lesion in the left circumflex artery with a pressure wire. Adenosine was again started at 140 g per KG per minute. Lowest FFR was 0.88 which is acceptable therefore PCI was deferred. The wire was taken out and post -FFR angiogram showed no vascular complication. Right radial artery was closed with a vascular band. CONCLUSIONS: Moderate multivessel CAD. Patent LAD stent with mild ISR. Continue aspirin and Plavix for at least a year. High-dose statin. Smoking cessation was strongly recommended. Ruth Cortes MD, FACP, FACC, [facility] Interventional Cardiology Gary CORTES MD Feb 04, 2018 5:22 pm
[2018-02-04] MEDS: morphine INJ 4 MG/ML 1 ML (VIAL/SYRINGE) IV PRN ×2 (19:55→20:45)
[2018-02-04] MEDS ORDERED: ATORVASTATIN 80 MG (LIPITOR) TABLET PO SCH (21:00)
[2018-02-05] MEDS ORDERED: ASPIRIN E.C. 81 MG (ECOTRIN) TAB PO SCH (09:00)
[2018-02-05] MEDS ORDERED: CLOPIDOGREL 75 MG (PLAVIX) TABLET PO SCH (09:00)
--- OUTSIDE RECORDS SUMMARY | 2018-02-12 10:51 | XMS REPORT | Continuity of Care Document ---
Author Author [facility] Address Unknown Phone Unavailable Allergies Active Description Code Type Severity Reaction Onset Reported/Identified Relationship to Patient Clinical Status Yes predniSONE Drug Allergy N/A N/A 10/29/2008 Yes No Known Drug Allergies [id number] Drug Allergy Unknown N/A 07/26/2009 Medications There is no data. 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 [place]CU[place] Y[place]QUI OR GRAFT 08/05/2010 ROGER ANTONIO MD 790.29 OTHER ABNORMAL GLUCOSE 12/16/2011 ROGER ANTONIO MD 599.0 URINARY TRACT INFECTION 12/16/2011 ROGER ANTONIO MD 599.70 HEMATURIA 08/04/2013 ROGER ANTONIO MD 924.9 CONTUSION OF UNSPECIFIED SITE Procedures Code [place] [address] ROUTINE VENIPUNCTURE 08/04/20136840112 GFR CALC (RESULT ONLY) 08/04/2013 25237 CMP 08/04/2013 19820 LIPID PANEL 08/04/2013 Results Test Result Range Complete blood count (CBC) with automated white blood cell (WBC) differential - 02/03/18 18:44 Blood leukocytes automated count (number/volume) 9.1 10*3/uL 4.3-11.0 Blood erythrocytes automated count (number/volume) 4.73 10*6/uL 4.35-5.85 Venous blood hemoglobin measurement (mass/volume) 15.0 g/dL 13.3-17.7 Blood hematocrit (volume fraction) 43 % 40-54 Automated erythrocyte mean corpuscular volume 91 [foz_us] 80-99 Automated erythrocyte mean corpuscular hemoglobin (mass per erythrocyte) 32 pg 25-34 Automated erythrocyte mean corpuscular hemoglobin concentration measurement ( mass/volume) 35 g/dL 32-36 Automated erythrocyte distribution width ratio 14.3 % 10.0-14.5 Automated blood platelet count (count/volume) 213 10*3/uL 130-400 Automated blood platelet mean volume measurement 11.2 [foz_us] 7.4-10.4 Automated blood neutrophils/100 leukocytes 69 % 42-75 Automated blood lymphocytes/100 leukocytes 22 % 12-44 Blood monocytes/100 leukocytes 7 % 0-12 Automated blood eosinophils/100 leukocytes 1 % 0-10 Automated blood basophils/100 leukocytes 0 % 0-10 Blood neutrophils automated count (number/volume) 6.2 10*3 1.8-7.8 Blood lymphocytes automated count (number/volume) 2.0 10*3 1.0-4.0 Blood monocytes automated count (number/volume) 0.7 10*3 0.0-1.0 Automated eosinophil count 0.1 10*3/uL 0.0-0.3 Automated blood basophil count (count/volume) 0.0 10*3/uL 0.0-0.1 PT panel in platelet poor plasma by coagulation assay - 02/03/18 18:44 Prothrombin time (PT) in platelet poor plasma by coagulation assay 14.0 s 12.2-14.7 INR in platelet poor plasma or blood by coagulation assay 1.1 0.8-1.4 Activated partial thromboplastin time (aPTT) in platelet poor plasma bycoagulation assay - 02/03/18 18:44 Activated partial thromboplastin time (aPTT) in platelet poor plasma bycoagulation assay 45 s 24-35 Serum or plasma ethanol measurement (mass/volume) - 02/03/18 18:44 Serum or plasma ethanol measurement (mass/volume) < mg/dL <10 Comprehensive metabolic panel - 02/03/18 18:44 Serum or plasma sodium measurement (moles/volume) 136 mmol/L 135-145 Serum or plasma potassium measurement (moles/volume) 3.8 mmol/L 3.6-5.0 Serum or plasma chloride measurement (moles/volume) 103 mmol/L 98-107 Carbon dioxide 23 mmol/L 21-32 Serum or plasma anion gap determination (moles/volume) 10 mmol/L 5-14 Serum or plasma urea nitrogen measurement (mass/volume) 7 mg/dL 7-18 Serum or plasma creatinine measurement (mass/volume) 0.83 mg/dL 0.60-1.30 Serum or plasma urea nitrogen/creatinine mass ratio 8 NRG Serum or plasma creatinine measurement with calculation of estimated glomerular filtration rate > NRG Serum or plasma glucose measurement (mass/volume) 100 mg/dL 70-105 Serum or plasma calcium measurement (mass/volume) 9.1 mg/dL 8.5-10.1 Serum or plasma total bilirubin measurement (mass/volume) 0.4 mg/dL 0.1-1.0 Serum or plasma alkaline phosphatase measurement (enzymatic activity/volume) 74 U/L 40-136 Serum or plasma aspartate aminotransferase measurement (enzymatic activity/ volume) 13 U/L 5-34 Serum or plasma alanine aminotransferase measurement (enzymatic activity/volume ) 14 U/L 0-55 Serum or plasma protein measurement (mass/volume) 6.8 g/dL 6.4-8.2 Serum or plasma albumin measurement (mass/volume) 4.2 g/dL 3.2-4.5 Magnesium - 02/03/18 18:44 Magnesium 1.8 mg/dL 1.8-2.4 Serum or plasma creatine kinase measurement (enzymatic activity/volume) - 02/03 18:44 Serum or plasma creatine kinase measurement (enzymatic activity/volume) 189 U/L 30-200 Serum or plasma creatine kinase MB measurement (enzymatic activity/volume) - 18:44 Serum or plasma creatine kinase MB measurement (enzymatic activity/volume) 3.3 ng/mL <6.6 Serum or plasma troponin i.cardiac measurement (mass/volume) - 02/03/18 18:44 Serum or plasma troponin i.cardiac measurement (mass/volume) < ng/ mL <0.30 Myoglobin, serum - 02/03/18 18:44 Myoglobin, serum 106.9 ng/mL 10.0-92.0 Serum or plasma amylase measurement (enzymatic activity/volume) - 02/03/18 18: 44 Serum or plasma amylase measurement (enzymatic activity/volume) 58 U /L 25-125 Lipase - 02/03/18 18:44 Lipase 12 U/L 8-78 Serum or plasma lithium measurement (moles/volume) - 02/03/18 18:44 BNP level 28.6 pg/mL <100.0 Urine drug screening test - 02/03/18 19:44 Urine phencyclidine detection by screening method NEGATIVE NEGATIVE Urine benzodiazepines detection by screening method NEGATIVE NEGATIVE Urine cocaine detection NEGATIVE NEGATIVE Urine amphetamines detection by screening method NEGATIVE NEGATIVE Urine methamphetamine detection by screening method NEGATIVE NEGATIVE Urine cannabinoids detection by screening method NEGATIVE NEGATIVE Urine opiates detection by screening method NEGATIVE NEGATIVE Urine barbiturates detection NEGATIVE NEGATIVE Screening urine tricyclic antidepressants detection NEGATIVE NEGATIVE Urine methadone detection by screening method NEGATIVE NEGATIVE Urine oxycodone detection NEGATIVE NEGATIVE Urine propoxyphene detection NEGATIVE NEGATIVE Complete urinalysis with reflex to culture - 02/03/18 19:44 Urine color determination YELLOW NRG Urine clarity determination CLEAR NRG Urine pH measurement by test strip 7 5-9 Specific gravity of urine by test strip 1.010 1.016- 1.022 Urine protein assay by test strip, semi-quantitative NEGATIVE NEGATIVE Urine glucose detection by automated test strip NEGATIVE NEGATIVE Erythrocytes detection in urine sediment by light microscopy 2+ NEGATIVE Urine ketones detection by automated test strip NEGATIVE NEGATIVE Urine nitrite detection by test strip NEGATIVE NEGATIVE Urine total bilirubin detection by test strip NEGATIVE NEGATIVE Urine urobilinogen measurement by automated test strip (mass/volume) NORMAL NORMAL Urine leukocyte esterase detection by dipstick 1+ NEGATIVE Automated urine sediment erythrocyte count by microscopy (number/high power field) [HPF] NRG Automated urine sediment leukocyte count by microscopy (number/high power field ) [HPF] NRG Bacteria detection in urine sediment by light microscopy NONE NRG Crystals detection in urine sediment by light microscopy NONE NRG Casts detection in urine sediment by light microscopy NONE NRG Mucus detection in urine sediment by light microscopy NEGATIVE NRG Complete urinalysis with reflex to culture NO NRG Serum or plasma troponin i.cardiac measurement (mass/volume) - 02/04/18 00:35 Serum or plasma troponin i.cardiac measurement (mass/volume) 0.67 ng /mL <0.30 Complete blood count (CBC) with automated white blood cell (WBC) differential - 02/04/18 03:50 Blood leukocytes automated count (number/volume) 8.6 10*3/uL 4.3-11.0 Blood erythrocytes automated count (number/volume) 4.69 10*6/uL 4.35-5.85 Venous blood hemoglobin measurement (mass/volume) 14.4 g/dL 13.3-17.7 Blood hematocrit (volume fraction) 43 % 40-54 Automated erythrocyte mean corpuscular volume 91 [foz_us] 80-99 Automated erythrocyte mean corpuscular hemoglobin (mass per erythrocyte) 31 pg 25-34 Automated erythrocyte mean corpuscular hemoglobin concentration measurement ( mass/volume) 34 g/dL 32-36 Automated erythrocyte distribution width ratio 14.5 % 10.0-14.5 Automated blood platelet count (count/volume) 198 10*3/uL 130-400 Automated blood platelet mean volume measurement 11.6 [foz_us] 7.4-10.4 Automated blood neutrophils/100 leukocytes 63 % 42-75 Automated blood lymphocytes/100 leukocytes 26 % 12-44 Blood monocytes/100 leukocytes 8 % 0-12 Automated blood eosinophils/100 leukocytes 3 % 0-10 Automated blood basophils/100 leukocytes 1 % 0-10 Blood neutrophils automated count (number/volume) 5.4 10*3 1.8-7.8 Blood lymphocytes automated count (number/volume) 2.2 10*3 1.0-4.0 Blood monocytes automated count (number/volume) 0.7 10*3 0.0-1.0 Automated eosinophil count 0.2 10*3/uL 0.0-0.3 Automated blood basophil count (count/volume) 0.0 10*3/uL 0.0-0.1 Comprehensive metabolic panel - 02/04/18 03:50 Serum or plasma sodium measurement (moles/volume) 141 mmol/L 135-145 Serum or plasma potassium measurement (moles/volume) 3.8 mmol/L 3.6-5.0 Serum or plasma chloride measurement (moles/volume) 108 mmol/L 98-107 Carbon dioxide 24 mmol/L 21-32 Serum or plasma anion gap determination (moles/volume) 9 mmol/L 5-14 Serum or plasma urea nitrogen measurement (mass/volume) 5 mg/dL 7-18 Serum or plasma creatinine measurement (mass/volume) 0.81 mg/dL 0.60-1.30 Serum or plasma urea nitrogen/creatinine mass ratio 6 NRG Serum or plasma creatinine measurement with calculation of estimated glomerular filtration rate > NRG Serum or plasma glucose measurement (mass/volume) 98 mg/dL 70-105 Serum or plasma calcium measurement (mass/volume) 9.1 mg/dL 8.5-10.1 Serum or plasma total bilirubin measurement (mass/volume) 0.5 mg/dL 0.1-1.0 Serum or plasma alkaline phosphatase measurement (enzymatic activity/volume) 70 U/L 40-136 Serum or plasma aspartate aminotransferase measurement (enzymatic activity/ volume) 18 U/L 5-34 Serum or plasma alanine aminotransferase measurement (enzymatic activity/volume ) 11 U/L 0-55 Serum or plasma protein measurement (mass/volume) 6.0 g/dL 6.4-8.2 Serum or plasma albumin measurement (mass/volume) 3.8 g/dL 3.2-4.5 Lipid 1996 panel - 02/04/18 03:50 Serum or plasma triglyceride measurement (mass/volume) 251 mg/dL <150 Serum or plasma cholesterol measurement (mass/volume) 213 mg/dL < 200 Serum or plasma cholesterol in HDL measurement (mass/volume) 25 mg/ dL 40-60 Cholesterol in LDL [mass/volume] in serum or plasma by direct assay 139 mg/dL 1-129 Serum or plasma cholesterol in VLDL measurement (mass/volume) 50 mg/ dL 5-40 Encounters ACCT No. Visit Date/Time Discharge Status Pt. Type Provider Facility Loc./Unit Complaint [id number] 08/04/2013 10:17:00 08/04/2013 23:59:59 CLS Outpatient ROGER ANTONIO MD [id number] 02/03/2018 19:54:00 ACT Inpatient ROGER ANTONIO MD [facility] ICU CHEST PAIN
--- OUTSIDE RECORDS SUMMARY | 2018-02-12 10:52 | XMS REPORT | Continuity of Care Document ---
Author Author [facility] Address Unknown Phone Unavailable Allergies Active Description Code Type Severity Reaction Onset Reported/Identified Relationship to Patient Clinical Status Yes predniSONE Drug Allergy N/A N/A 10/29/2008 Yes No Known Drug Allergies [id number] Drug Allergy Unknown N/A 07/26/2009 Medications There [...] CORONARY ATHEROSCLEROSIS OF UNSPECIFIED TYPE OF VESSEL KAKE OR GRAFT 08/05/2010 ROGER ANTONIO MD 790.29 OTHER ABNORMAL GLUCOSE 12/16/2011 ROGER ANTONIO MD 599.0 URINARY TRACT INFECTION 12/16/2011 ROGER ANTONIO MD 599.70 HEMATURIA 08/04/2013 ROGER ANTONIO MD 924.9 CONTUSION OF UNSPECIFIED SITE Procedures Code Description [place] [address] ROUTINE VENIPUNCTURE 08/04/20132632349 GFR CALC (RESULT ONLY) 08/04/2013 10537 CMP 08/04/2013 77735 LIPID PANEL 08/04/2013 Results Test Result Range [...] Status Pt. Type Provider Facility Loc./Unit Complaint [id number] 08/04/2013 10:17:00 08/04/2013 23:59:59 CLS Outpatient ROGER ANTONIO MD [id number] 02/03/2018 19:54:00 ACT Inpatient ROGER ANTONIO MD [facility] ICU CHEST PAIN
== END 2018-02-04 21:30 | disposition home or self-care (01) | DRG 281 ==
LOC: EDUNIT# 18:32 → ER 18:34 → UNDOADMOB 19:54 → ICU 19:54 → CATH 20:50 → ICU 02-04 12:48 → OBSVTOIN 02-04 12:48 → INTOOBSV 02-04 12:48 → UNDODISIN 02-04 21:30
PROVIDERS: ADMIT Internal Medicine; ATTEND Internal Medicine
PROC: 4A023N7 Measurement of Cardiac Sampling and Pressure, Left Heart, Percutaneous Approach (ICD-10-PCS; principal; 2018-02-04)
PROC: B2111ZZ Fluoroscopy of Multiple Coronary Arteries using Low Osmolar Contrast (ICD-10-PCS; 2018-02-04)
PROC: B2151ZZ Fluoroscopy of Left Heart using Low Osmolar Contrast (ICD-10-PCS; 2018-02-04)
PROC: B3101ZZ Fluoroscopy of Thoracic Aorta using Low Osmolar Contrast (ICD-10-PCS; 2018-02-04)
PROC: 4A033BC Measurement of Arterial Pressure, Coronary, Percutaneous Approach (ICD-10-PCS; 2018-02-04)
DX: I21.4 Non-ST elevation (NSTEMI) myocardial infarction (principal); I25.10 Atherosclerotic heart disease of native coronary artery without angina pectoris; T82.855A Stenosis of coronary artery stent, initial encounter; E78.1 Pure hyperglyceridemia; I10 Essential (primary) hypertension; E78.5 Hyperlipidemia, unspecified; F17.210 Nicotine dependence, cigarettes, uncomplicated; I25.2 Old myocardial infarction; Z95.5 Presence of coronary angioplasty implant and graft; Z79.82 Long term (current) use of aspirin; Z91.14 Patient's other noncompliance with medication regimen; Z91.19 Patient's noncompliance with other medical treatment and regimen
CPT/HCPCS: 36221; 36415; 71045; 80053; 80061; 80306; 80320; 81000; 82150; 82550; 82553; 83690; 83735; 83874; 83880; 84484; 85025; 85347; 85610; 85730; 93005; 93041; 93306; 93458

== ENCOUNTER 2022-08-05 17:30 | Inpatient (IN) | payer OTHER ==
[~2022-08-05] VITALS: Ht 182.4 cm; Wt 92.0 kg
[~2022-08-05 17:30] MED LIST: ASPI-1238 PO; ASPI-808 PO; ATOR40TA PO; CLOP75TA28 PO; NICO-685 TD; NITR0.4T42 SL
[2022-08-05] MEDS ORDERED: NS IV 1000 ML 1,000 ML IV SCH ×2 (17:45→21:45)
[2022-08-05] MEDS ORDERED: LIDOCAINE UROJET 2% GEL 10 ML PKG TOP ONE (17:45)
[2022-08-05 18:03] LABS: BASOPHILS % (AUTO) 0 % (0-10); EOSINOPHILS % (AUTO) 0 % (0-10); HEMATOCRIT 58 % (40-54); HEMOGLOBIN 18.6 g/dL (13.3-17.7); LYMPHOCYTES # (AUTO) 0.7 10^3/uL (1.0-4.0); LYMPHOCYTES % (AUTO) 5 % (12-44); MEAN CORPUSCULAR HEMOGLOBIN 30 pg (25-34); MEAN CORPUSCULAR HGB CONC 32 g/dL (32-36); MEAN CORPUSCULAR VOLUME 94 fL (80-99); MEAN PLATELET VOLUME 12.3 fL (9.0-12.2); MONOCYTES # (AUTO) 1.1 10^3/uL (0.0-1.0); MONOCYTES % (AUTO) 8 % (0-12); NEUTROPHILS # (AUTO) 11.2 10^3/uL (1.8-7.8); NEUTROPHILS % (AUTO) 86 % (42-75); PLATELET COUNT 296 10^3/uL (130-400)
[2022-08-05] MEDS ORDERED: NALOXONE 0.4 MG/ML 1 ML (NARCAN) VIAL ONE (18:03)
--- NOTE | 2022-08-05 18:08 | Diagnostic Imaging Report ---
INDICATION: 61-year-old male with altered mental status and shortness of breath. COMPARISON: 02/03/2018. FINDINGS: Single view chest shows normal heart, pleura and diaphragms. Some background chronic parenchymal changes are seen. There is slight tortuosity of the thoracic aorta. There is no consolidation, effusion or pneumothorax. Soft tissues and bony thorax are grossly unremarkable. IMPRESSION: No acute cardiopulmonary change. Dictated by: Dictated on workstation # [id number]
--- NOTE | 2022-08-05 18:09 | ED General ---
General Chief Complaint: Glucose Problems Stated Complaint: HIGH BLOOD SUGAR Nursing Triage Note: PT ARRIVED PER EMS, PT HAS CONFUSION, ELEVATED BS, AND HAS BEEN FEELING SICK, THIRSTY, VOIDING ALOT. HX CO AND ONLY TAKES ASA DAILY. RESP RAPID AND DEEP Source of Information: EMS Exam Limitations: Physical Impairments History of Present Illness Date Seen by Provider: Aug 05, 2022 Time Seen by Provider: 18:03 Initial Comments Patient is a 61-year-old male who presents to the emergency room by ambulance chief complaint altered mental status. Patient has a history of coronary artery disease status post CO 5 years ago. Reportedly his only medication is aspirin daily. No other past medical history reported by EMS. Was found by sister today altered, brought to the emergency department for evaluation. The patient is mumbling, withdrawing from pain, eyes are open. Pupils are pinpoint. GCS 14. No obvious outward signs of trauma. Slightly hypotensive with systolic blood pressure in the upper 90s. Tachycardic. Room air oxygen 97% end-tidal CO2 reading 2-6. Tachypneic/Kussmaul respirations. Bedside blood sugar too high to read. No history of diabetes. Patient is unable to provide any HPI, past medical family or social history due to his altered mental state. Timing/Duration: Other (unknown) Allergies and Home Medications Allergies Coded Allergies: No Known Drug Allergies (Verified , 07/26/09) Patient Home Medication List Home Medication List Reviewed: Yes Aspirin (Aspirin EC) 81 Mg Tablet.dr, 81 MG PO HS, (Reported) Entered as Reported by: NIGEL CORTES on 08/06/22 1018 Last Action: Reviewed Discontinued Medications Aspirin (Aspirin EC) 81 Mg Tablet., 81 MG PO DAILY Discontinued Reason: No Longer Taking Prescribed by: ARUN OLIVEROS on 02/04/181119 Last Action: Discontinued Atorvastatin Calcium (Lipitor) 40 Mg Tablet, 40 MG PO DAILY Discontinued Reason: No Longer Taking Prescribed by: ARUN OLIVEROS on 02/04/181119 Last Action: Discontinued Clopidogrel Bisulfate (Clopidogrel) 75 Mg Tablet, 75 MG PO DAILY Discontinued Reason: No Longer Taking Prescribed by: ARUN OLIVEROS on 02/04/181119 Last Action: Discontinued Nicotine (Nicotine Patch) 1 Each Patch.td24, 21 MG TD DAILY Discontinued Reason: No Longer Taking Prescribed by: ARUN OLIVEROS on 02/04/181119 Last Action: Discontinued Nitroglycerin (Nitroglycerin) 0.4 Mg Tab.subl, 0.4 MG SL NEEDED Discontinued Reason: No Longer Taking Prescribed by: ARUN OLIVEROS on 02/04/181119 Last Action: Discontinued Review of Systems Review of Systems Constitutional: see HPI le to obtain secondary to patient's altered state Past Ufbrebm-Vrhpkn-Hqrioa Hx Past Medical History Surgeries: Yes (CARDIAC CATH--STENT X 1 IN LAD IN 2009) Adenoidectomy, Cardiac, Coronary Stent, Tonsillectomy Respiratory: Yes Pneumonia Cardiac: Yes (STENT X1) Coronary Artery Disease, Heart Attack, High Cholesterol, Hypertension Neurological: No Reproductive Disorders: No Genitourinary: No Gastrointestinal: No Musculoskeletal: Yes (PLANTAR FASCITIS) Endocrine: No HEENT: No Cancer: No Psychosocial: No Integumentary: No Blood Disorders: No Family Medical History Alcoholism 19 FATHER Cardiovascular disease 19 FATHER Dementia 19 MOTHER Hypertension 19 FATHER Heart Disease Physical Exam Vital Signs Vital Signs - First Documented 08/05/22 08/05/22 17:30 19:52 Temp 36.1 Pulse 113 Resp 18 B/P (MAP) 136/90 (105) Pulse Ox 98 O2 Delivery Mechanical Ventilator Capillary Refill : Less Than 3 Seconds Height, Weight, BMI Height: 5'8.00" Weight: 188lbs. 9.0oz. 85.781520lh; 25.00 BMI Method:Stated General Appearance: WD/WN, Other Eyes: Bilateral Eye Normal Inspection, Bilateral Eye PERRL (Pupils are pinpoint bilaterally), Bilateral Eye EOMI HEENT: PERRL/EOMI, Other (Very dry oral mucosa) Neck: Normal Inspection Respiratory: Lungs Clear, No Accessory Muscle Use, Other (Tachypnea) Cardiovascular: Regular Rate, Rhythm, Normal Peripheral Pulses (2+ radial), Tachycardia Gastrointestinal: Normal Bowel Sounds, Soft Genital/Rectal: Normal Genital Exam Back: Normal Inspection Extremity: Normal Capillary Refill, Normal Inspection, Normal Range of Motion, No Pedal Edema Neurologic/Psychiatric: Other (GCS 13/40, moves all extremities equally) Skin: Normal Color, Warm/Dry Focused Exam Lactate Level 08/05/22 17:59: Lactic Acid Level 2.02*H Lactic Acid Level Laboratory Tests Test 08/05/22 17:59 Lactic Acid Level 2.02 MMOL/L (0.50-2.00) *H Procedures/Interventions Lumen: triple Position: internal jugular (R) Anesthesia: Lidocaine Volume Anesthetic (ccs): 3 Complications: none Post Position: sutured, good blood return, position confirmed w/ CXR Date of ETT Placement: Aug 05, 2022 Time of ETT Placement: 19:00 Intubation Method: orotracheal Tube Size: 8.0 Medications: Etomidate, Rocuronium Positive End Tide CO2: Yes Breath Sounds after Intubation: bilateral-equal Intubation Complications: no complications Post Intubation Xray: Yes Progress/Results/Core Measures Suspected Sepsis SIRS Temperature: Pulse: 113 Respiratory Rate: 18 Laboratory Tests 08/05/22 17:59: White Blood Count 13.0H Blood Pressure 136 /90 Mean: 105 08/05/22 17:59: Lactic Acid Level 2.02*H Laboratory Tests 08/05/22 17:59: Creatinine 3.72H, INR Comment 1.1, Platelet Count 296, Total Bilirubin 0.3 Results/Orders Lab Results Laboratory Tests Test 08/05/22 17:46 08/05/22 17:50 08/05/22 17:59 08/05/22 18:00 Range/Units Influenza Type A (RT-PCR) Not Detected Not Detecte Influenza Type B (RT-PCR) Not Detected Not Detecte SARS-CoV-2 RNA (RT-PCR) Not Detected Not Detecte Blood Gas Puncture Site LEFT WRIST Blood Gas Patient Temperature 36 Arterial Blood pH 7.08 *L 7.37-7.43 Arterial Blood Partial Pressure CO2 13 *L 35-45 MMHG Arterial Blood Partial Pressure O2 100 H 79-93 MMHG Arterial Blood HCO3 4 *L 23-27 MMOL/L Arterial Blood Total CO2 4.0 *L 21.0-31.0 MMOL/L Arterial Blood Oxygen Saturation 97 94-100 % Arterial Blood Base Excess -25.0 L -2.5-2.5 MMOL/L Ashish Test YES-POS Blood Gas Ventilator Setting NO Blood Gas Inspired Oxygen UNK White Blood Count 13.0 H 4.3-11.0 10^3/uL Red Blood Count 6.12 H 4.30-5.52 10^6/uL Hemoglobin 18.6 H 13.3-17.7 g/dL Hematocrit 58 H 40-54 % Mean Corpuscular Volume 94 80-99 fL Mean Corpuscular Hemoglobin 30 25-34 pg Mean Corpuscular Hemoglobin Concent 32 32-36 g/dL Red Cell Distribution Width 13.4 10.0-14.5 % Platelet Count 296 130-400 10^3/uL Mean Platelet Volume 12.3 H 9.0-12.2 fL Immature Granulocyte % (Auto) 1 % Neutrophils (%) (Auto) 86 H 42-75 % Lymphocytes (%) (Auto) 5 L 12-44 % Monocytes (%) (Auto) 8 0-12 % Eosinophils (%) (Auto) 0 0-10 % Basophils (%) (Auto) 0 0-10 % Neutrophils # (Auto) 11.2 H 1.8-7.8 10^3/uL Lymphocytes # (Auto) 0.7 L 1.0-4.0 10^3/uL Monocytes # (Auto) 1.1 H 0.0-1.0 10^3/uL Eosinophils # (Auto) 0.0 0.0-0.3 10^3/uL Basophils # (Auto) 0.0 0.0-0.1 10^3/uL Immature Granulocyte # (Auto) 0.1 0.0-0.1 10^3/uL Neutrophils % (Manual) 86 % Lymphocytes % (Manual) 5 % Monocytes % (Manual) 2 % Eosinophils % (Manual) 0 % Basophils % (Manual) 0 % Band Neutrophils 2 % Reactive Lymphocytes 5 % Blood Morphology Comment NORMAL Erythrocyte Sedimentation Rate 1 0-30 MM/HR Prothrombin Time 14.6 12.2-14.7 SEC INR Comment 1.1 0.8-1.4 Activated Partial Thromboplast Time 36 H 24-35 SEC D-Dimer 1.75 H 0.00-0.49 UG/ML Sodium Level 136 135-145 MMOL/L Potassium Level 5.6 H 3.6-5.0 MMOL/L Chloride Level 102 98-107 MMOL/L Carbon Dioxide Level 6 *L 21-32 MMOL/L Anion Gap 28 H 5-14 MMOL/L Blood Urea Nitrogen 41 H 7-18 MG/DL Creatinine 3.72 H 0.60-1.30 MG/DL Estimat Glomerular Filtration Rate 17 BUN/Creatinine Ratio 11 Glucose Level 936 *H 70-105 MG/DL Lactic Acid Level 2.02 *H 0.50-2.00 MMOL/L Calcium Level 11.5 H 8.5-10.1 MG/DL Corrected Calcium 11.2 H 8.5-10.1 MG/DL Magnesium Level 3.0 H 1.6-2.4 MG/DL Total Bilirubin 0.3 0.1-1.0 MG/DL Aspartate Amino Transf (AST/SGOT) 10 5-34 U/L Alanine Aminotransferase (ALT/SGPT) 33 0-55 U/L Alkaline Phosphatase 145 H 40-136 U/L Ammonia 35 H 11-32 UMOL/L Total Creatine Kinase 48 30-200 U/L Creatine Kinase MB 1.6 <6.6 NG/ML Myoglobin 333.8 H 10.0-92.0 NG/ML Troponin I 0.045 H <0.028 NG/ML C-Reactive Protein High Sensitivity 2.38 H 0.00-0.50 MG/DL B-Type Natriuretic Peptide 33.7 <100.0 PG/ML Total Protein 7.9 6.4-8.2 GM/DL Albumin 4.4 3.2-4.5 GM/DL Amylase Level 257 H 25-125 U/L Lipase 249 H 8-78 U/L Beta-Hydroxybutyrate (Chem panel) 13.01 H 0.00-0.27 MMOL/L TSH [place] Testing 0.85 0.35-4.94 UIU/ML Acetaminophen Level < 10 L 10-30 UG/ML Serum Alcohol < 10 <10 MG/DL Urine Color YELLOW Urine Clarity CLEAR Urine pH 6.0 5-9 Urine Specific [place] 1.025 H 1.016-1.022 Urine Protein 1+ H NEGATIVE Urine Glucose (UA) 3+ H NEGATIVE Urine Ketones 2+ H NEGATIVE Urine Nitrite NEGATIVE NEGATIVE Urine Bilirubin 1+ H NEGATIVE Urine Urobilinogen 0.2 < = 1.0 MG/DL Urine Leukocyte Esterase NEGATIVE NEGATIVE Urine RBC (Auto) 1+ H NEGATIVE Urine RBC RARE /HPF Urine WBC RARE /HPF Urine Squamous Epithelial Cells RARE /HPF Urine Crystals NONE /LPF Urine Bacteria NEGATIVE /HPF Urine Casts NONE /LPF Urine Mucus NEGATIVE /LPF Urine Culture Indicated NO Urine Opiates Screen NEGATIVE NEGATIVE Urine Oxycodone Screen NEGATIVE NEGATIVE Urine Methadone Screen NEGATIVE NEGATIVE Urine Propoxyphene Screen NEGATIVE NEGATIVE Urine Barbiturates Screen NEGATIVE NEGATIVE Ur Tricyclic Antidepressants Screen NEGATIVE NEGATIVE Urine Phencyclidine Screen NEGATIVE NEGATIVE Urine Amphetamines Screen NEGATIVE NEGATIVE Urine Methamphetamines Screen NEGATIVE NEGATIVE Urine Benzodiazepines Screen NEGATIVE NEGATIVE Urine Cocaine Screen NEGATIVE NEGATIVE Urine Cannabinoids Screen NEGATIVE NEGATIVE My Orders Orders - NICOLE TAVERAS MD Naloxone Injection (Narcan Injection) (08/05/22 18:15) Insulin (Regular) Human (Novolin R (Per (08/05/22 18:11) Insulin (Regular) Human (Novolin R (Per (08/05/22 18:11) Ct Head Wo (08/05/22 18:11) Ct Abdomen/Pelvis Wo (08/05/22 18:37) Sodium Bicarbonate 8.4% Syr (Sodium Bica (08/05/22 18:45) Lorazepam Injection (Ativan Injection) (08/05/22 18:57) Lorazepam Injection (Ativan Injection) (08/05/22 19:05) Lorazepam Injection (Ativan Injection) (08/05/22 19:15) Lorazepam Injection (Ativan Injection) (08/05/22 19:05) Lactated Ringers (Lr 1000 Ml Iv Solution (08/05/22 19:18) Propofol Drip (Icu) (Diprivan Drip (Icu) (08/05/22 19:23) Chest 1 View, Ap/Pa Only (08/05/22 20:12) Chest 1 View, Ap/Pa Only (08/05/22 20:14) Ed Admission (Communication) (08/05/22 20:39) Medications Given in ED Current Medications Medications Dose Ordered Sig/Adams Route Start Time Stop Time Status Last Admin Dose Admin Lactated Ringer's 1,000 ml @ ud STK-MED ONCE IV 08/05/22 19:18 08/05/22 19:20 DC 08/05/22 19:22 1,000 MLS/HR Lidocaine HCl 10 ml ONCE ONCE TOP 08/05/22 17:45 08/05/22 17:49 DC 08/05/22 18:06 10 ML Lorazepam 2 mg ONCE ONCE IVP 08/05/22 19:15 08/05/22 19:16 DC 08/05/22 18:40 2 MG Lorazepam 2 mg STK-MED ONCE .ROUTE 08/05/22 18:57 08/05/22 18:59 DC 08/05/22 19:01 0.5 MG Naloxone HCl 0.4 mg STK-MED ONCE .ROUTE 08/05/22 18:03 08/05/22 18:07 DC 08/05/22 18:10 0.4 MG Sodium Bicarbonate 50 meq ONCE ONCE IV 08/05/22 18:45 08/05/22 18:46 DC 08/05/22 19:00 50 MEQ Vital Signs/I&O 08/05/22 08/05/22 17:30 19:52 Temp 36.1 36.1 Pulse 113 103 Resp 18 22 B/P (MAP) 136/90 (105) 117/80 Pulse Ox 98 98 O2 Delivery Mechanical Ventilator Capillary Refill : Less Than 3 Seconds Blood Pressure Mean: 105 Critical Care Note Critical Care Start Time: 18:03 Stop Time: 19:45 Total Time (minutes) 40 minutes critical care time in evaluation and management of this 61-year-old with new onset DKA, new diagnosis of diabetes. Time includes initial evaluation and management of volume depletion/dehydration, medication administration to correct hyperglycemia, insulin, bicarb, IV fluids. Time includes review of the medical record, discussion with family member/girlfriend who is at the bedside. Time does not include that spent in procedures, intubation and central line placement. Departure Communication (Admissions) Time/Spoke to Admitting Phy: 19:[address] Oliveros - Hospitalist Time/Spoke to Consulting Phy: 19:35 DIscussed with eICU for consultation Impression Primary Impression: DKA (diabetic ketoacidosis) Qualified Codes: E13.10 - Other specified diabetes mellitus with ketoacidosis without coma Additional Impressions: Altered mental status Qualified Codes: R41.82 - Altered mental status, unspecified History of CAD (coronary artery disease) Disposition: ADMITTED INPATIENT Condition: Critical Admissions Decision to Admit Reason: Admit from ER (General) Decision to Admit/Date: Aug 05, 2022 Time/Decision to Admit Time: 20:48 Departure-Patient Inst. Referrals: ROGER ANTONIO MD (PCP/Family) Primary Care Physician NICOLE TAVERAS MD Aug 05, 2022 18:09
[2022-08-05] MEDS ORDERED: inSUlin (REGULAR) HUMAN 1 UNIT/0.01 ML (CHARGE PER UNIT) SC STA (18:11)
[2022-08-05] MEDS ORDERED: inSUlin (REGULAR) HUMAN 1 UNIT/0.01 ML (CHARGE PER UNIT) IV STA (18:11)
[2022-08-05 18:13] LABS: CLARITY,URINE CLEAR; COLOR,URINE YELLOW; GLUCOSE, URINE (UA) 3+ (NEGATIVE); KETONES,URINE 2+ (NEGATIVE); LEUKOCYTE ESTERASE ,URINE NEGATIVE (NEGATIVE); NITRITE,URINE NEGATIVE (NEGATIVE); PROTEIN,URINE 1+ (NEGATIVE)
[2022-08-05 18:15] LABS: ALBUMIN 4.4 GM/DL (3.2-4.5); CHLORIDE 102 MMOL/L (98-107); POTASSIUM 5.6 MMOL/L (3.6-5.0); SODIUM 136 MMOL/L (135-145)
[2022-08-05] MEDS ORDERED: NALOXONE 0.4 MG/ML 1 ML (NARCAN) VIAL IV ONE (18:15)
[2022-08-05 18:17] LABS: CALCIUM 11.5 MG/DL (8.5-10.1)
[2022-08-05 18:18] LABS: AMMONIA 35 UMOL/L (11-32); AMYLASE 257 U/L (25-125); TOTAL PROTEIN 7.9 GM/DL (6.4-8.2)
[2022-08-05 18:20] LABS: BILIRUBIN,TOTAL 0.3 MG/DL (0.1-1.0)
[2022-08-05 18:22] LABS: ALKALINE PHOSPHATASE 145 U/L (40-136); CREATININE SERUM 3.72 MG/DL (0.60-1.30); GFR ESTIMATED 17
[2022-08-05 18:23] LABS: BUN/CREATININE RATIO 11
[2022-08-05 18:24] LABS: FIBRIN DEGRADATION PRODUCTS 1.75 UG/ML (0.00-0.49); INR 1.1 (0.8-1.4); PROTHROMBIN TIME PATIENT 14.6 SEC (12.2-14.7)
[2022-08-05 18:25] LABS: ABG OXYGEN SATURATION 97 % (94-100); ABG PO2 100 MMHG (79-93)
[2022-08-05 18:25] LABS: ALANINE AMINOTRANSFERASE 33 U/L (0-55)
[2022-08-05 18:26] LABS: CREATINE KINASE 48 U/L (30-200); LIPASE 249 U/L (8-78)
[2022-08-05 18:27] LABS: BAND NEUTROPHILS 2 %; BASOPHILS % (MANUAL) 0 %; EOSINOPHILS % (MANUAL) 0 %; LYMPHOCYTES % (MANUAL) 5 %; MONOCYTES % (MANUAL) 2 %; NEUTROPHILS % (MANUAL) 86 %; RBC MORPH NORMAL; REACTIVE LYMPHOCYTES 5 %
[2022-08-05 18:29] LABS: ERYTHROCYTE SEDIMENTATION RATE 1 MM/HR (0-30)
[2022-08-05 18:29] LABS: AMPHETAMINE SCREEN, URINE NEGATIVE (NEGATIVE); BARBITURATE SCREEN URINE NEGATIVE (NEGATIVE); BENZODIAZEPINES SCREEN URINE NEGATIVE (NEGATIVE); CANNABINOID SCREEN, URINE NEGATIVE (NEGATIVE); COCAINE SCREEN URINE NEGATIVE (NEGATIVE); METHADONE STAT NEGATIVE (NEGATIVE); OPIATE SCREEN URINE NEGATIVE (NEGATIVE); OXYCODONE STAT NEGATIVE (NEGATIVE); PROPOXYPHENE STAT NEGATIVE (NEGATIVE); TRICYCLIC ANTIDEPRESSANTS SCRE NEGATIVE (NEGATIVE)
[2022-08-05 18:32] LABS: BACTERIA,URINE NEGATIVE /HPF; BILIRUBIN,URINE 1+ (NEGATIVE); RBC,URINE RARE /HPF; SQUAMOUS EPITHELIAL CELL,UR RARE /HPF; WBC,URINE RARE /HPF
[2022-08-05 18:34] LABS: CREATINE KINASE MB 1.6 NG/ML (<6.6)
[2022-08-05] MEDS ORDERED: SODIUM BICARB 8.4% 50 MEQ/50 ML (ABBOTT) SYR IV ONE ×2 (18:45→23:00)
[2022-08-05 18:46] LABS: TSH (THYROID ANALYZER) 0.85 UIU/ML (0.35-4.94)
[2022-08-05 18:53] LABS: CARBON DIOXIDE 6 MMOL/L (21-32)
[2022-08-05 18:54] LABS: ABG PCO2 13 MMHG (35-45); ABG PH 7.08 (7.37-7.43)
[2022-08-05 18:54] LABS: ACETAMINOPHEN < 10 UG/ML (10-30); GLUCOSE 936 MG/DL (70-105)
[2022-08-05 18:55] LABS: ALLENS TEST YES-POS; PATIENT TEMP 36; VENTILATOR NO
[2022-08-05] MEDS ORDERED: LORazepam INJ 2 MG/ML (ATIVAN) VIAL ONE ×2 (18:57→19:05)
[2022-08-05] MEDS: LORazepam INJ 2 MG/ML (ATIVAN) VIAL IVP STA ×2 (19:00→19:06)
[2022-08-05] MEDS ORDERED: LORazepam INJ 2 MG/ML (ATIVAN) VIAL IVP ONE (19:15)
[2022-08-05] MEDS ORDERED: LACTATED RINGERS 1,000 ML IV ONE (19:18)
[2022-08-05] MEDS ORDERED: PROPOFOL DRIP (ICU) 100 ML IV ONE (19:23)
[2022-08-05 21:00] VITALS: BP 121/77
--- NOTE | 2022-08-05 21:20 | Diagnostic Imaging Report ---
INDICATION: Pinpoint needles. High blood sugar. Acute mental status change. DKA. EXAMINATION: CT brain without contrast, All CT scans use one or more of the following dose optimizing techniques: automated exposure control, MA and/or KvP adjustment based on patient size and exam type or iterative reconstruction. FINDINGS: Chronic ischemic changes noted with no superimposed acute hemorrhage or infarct. There is no mass, mass effect or midline shift. No hydrocephalus. Calvarium intact. There is no acute sinus disease appreciated. Mastoid air cells clear. IMPRESSION: Chronic findings with no acute intracranial process. Dictated by: Dictated on workstation # [id number]
--- NOTE | 2022-08-05 21:26 | Diagnostic Imaging Report ---
INDICATION: Central line placement. EXAMINATION: Chest, 08/05/2022. COMPARISON: Same date at an earlier time. FINDINGS: Right central line tip ends in the mid SVC. There is an enteric tube tip in the left upper quadrant. It could be advanced slightly as the proximal sidehole is in the esophagus. ET tube unremarkable. Heart and pulmonary vasculature normal. Lungs and pleural spaces clear. IMPRESSION: Tubes and lines as above. Dictated by: Dictated on workstation # [id number]
[2022-08-05] MEDS ORDERED: ANTACID SUSP 30 ML UDC (MYLANTA) PO PRN (21:45)
[2022-08-05] MEDS ORDERED: CALCIUM CARBONATE 500 MG (TUMS) TAB.CHEW PO PRN (21:45)
[2022-08-05] MEDS ORDERED: HEParin DRIP 25000 UNIT/500ML 500 ML IV SCH (21:45)
[2022-08-05] MEDS ORDERED: LACTULOSE SYRUP 10GM/15ML (ENULOSE) 30ML UDC PO PRN (21:45)
[2022-08-05] MEDS ORDERED: HALOPERIDOL 5 MG/ML (HALDOL) VIAL IV PRN (21:45)
[2022-08-05] MEDS ORDERED: BISACODYL 10 MG SUPP (DULCOLAX) PR PRN (21:45)
[2022-08-05] MEDS ORDERED: ACETAMINOPHEN 325 MG TABLET PO PRN (21:45)
[2022-08-05] MEDS ORDERED: diphenhydrAMINE 25 MG TAB (BENADRYL) PO PRN (21:45)
[2022-08-05] MEDS ORDERED: D5 1/2 NS 1000 ML IV SOLUTION 1,000 ML IV SCH (21:45)
[2022-08-05] MEDS ORDERED: HEParin 1000 UNIT/ML (10ML VIAL) FOR BOLUS IV PRN (21:45)
[2022-08-05] MEDS ORDERED: polyethylene glycoL POWDER 17 GM (MIRALAX) PACK PO PRN (21:45)
[2022-08-05] MEDS ORDERED: POTASSIUM CL 10MEQ/50ML IVPB 50 ML IV SCH (21:45)
[2022-08-05] MEDS ORDERED: ONDANSETRON 4 MG (ZOFRAN) ORAL DISSOLVE TAB PO PRN (21:45)
[2022-08-05] MEDS ORDERED: ONDANSETRON 4 MG/2 ML (SDV) Z0FRAN IV PRN (21:45)
[2022-08-05] MEDS ORDERED: MILK OF MAGNESIA 400 MG/5 ML 30 ML UDC PO PRN (21:45)
[2022-08-05] MEDS ORDERED: MELATONIN 3 MG TABLET PO PRN (21:45)
[2022-08-05] MEDS ORDERED: diphenhydrAMINE 50 MG/ML INJ (BENADRYL) IVP PRN (21:45)
[2022-08-05] MEDS ORDERED: NS IV 500 ML 500 ML IV PRN (21:45)
--- NOTE | 2022-08-05 21:58 | Tele-ICU Consult ---
History of Present Illness History of Present Illness Date Seen by Provider: Aug 05, 2022 Time Seen by Provider: 21:56 Date of Admission 08/05/2022 History of Present Illness (Tele-ICU Physician , consultation) Available chart/ vitals / labs / Images reviewed H&P is from ER notes Patient's information available about PMH, allergy reviewed in EMR. ROS as per chart and RN report Video assessment done using teleICU camera, rest of exam as per RN Discussed with RN. He is a 61-year-old male with past medical history of hypertension, hyperlipidemia and coronary artery disease status post LAD stenting in 2009 who was brought to the emergency room because of altered mental status and he was found to be incoherent but moving all 4 limbs. He is found to have a markedly elevated blood glucose with diabetic ketoacidosis. Patient not known to have diabetes based on his previous admission in 2018. Also patient has a markedly elevated BUN and creatinine. When compared to labs in 2018 this is not new. He was intubated and put on mechanical ventilation in the emergency room and started on IV fluid bolus as well as insulin drip. He is admitted to the intensive care unit where I have evaluated him and visually via video visit and discussed with the ICU nurse. Impression 1. Diabetic ketoacidosis. 2. Acute kidney failure secondary to dehydration 3. Elevated CRP rule out any underlying infection. 4. Slightly elevated troponin probably demand ischemia however active coronary artery disease cannot be ruled out 5. Hypertension history but now his blood pressure is borderline 6. Hyperlipidemia history apparently noncompliant. 7. Acute hypoxic respiratory failure requiring mechanical ventilation Recommendations 1. Continue hydration with Ringer lactate and monitor BUN/creatinine frequently 2. Continue mechanical ventilatory support with tidal volume of 500, respiratory rate of 22 FiO2 of 60% and a PEEP of 8 and will repeat a blood gas and adjust vent settings. 3. Insulin drip per protocol 4. DVT prophylaxis and ulcer prophylaxis. 5. Started on IV Rocephin until we rule out infection 6. Monitor magnesium and phosphate levels closely. 7. Cardiology consultation has already been requested. Coordination of care with bedside consultants and primary care physician. Allergies and Home Medications Allergies Coded Allergies: No Known Drug Allergies (Verified , 07/26/09) Home Medications Aspirin 81 Mg Tablet.dr, 81 MG PO DAILY Prescribed by: ARUN OLIVEROS on 02/04/18 1120 Atorvastatin Calcium 40 Mg Tablet, 40 MG PO DAILY Prescribed by: ARUN OLIVEROS on 02/04/18 1120 Clopidogrel Bisulfate 75 Mg Tablet, 75 MG PO DAILY Prescribed by: ARUN OLIVEROS on 02/04/18 1120 Nicotine 1 Each Patch.td24, 21 MG TD DAILY Prescribed by: ARUN OLIVEROS on 02/04/18 1120 Nitroglycerin 0.4 Mg Tab.subl, 0.4 MG SL NEEDED Prescribed by: ARUN OLIVEROS on 02/04/18 1120 Past Medical/Social/Family Hx Patient Social History Tobacco Use?: Yes Smoking Status: Unknown if Ever Smoked Smokeless Tobacco Frequency: Unknown if Ever Used Use of E-Cig and/or Vaping dev: Unable to obtain Substance use?: Unable to obtain Alcohol Use?: Unable to obtain Pt stated abuse/neglect: Unable to obtain Immunizations Up To Date Influenza Vaccine Up-to-Date: No; Not Current First/Initial COVID19 Vaccinat: UNK Second COVID19 Vaccination Will: UNK Tetanus Booster (TDap): Unknown Current Status Advance Directives: Unable to obtain Communicates: Unable To Communicate Primary Language: Korean Preferred Spoken Language: Korean Is interpretation needed?: No Review of Systems Constitutional: see HPI, other (he is intubated and on vent) Other ROS PER RN Focused Exam Lactate Level 08/05/22 17:59: Lactic Acid Level 2.02*H Height, Weight, BMI Height: 5'8.00" Weight: 188lbs. 9.0oz. 85.235865ok; 25.17 BMI Method:Stated Lactic Acid Level Laboratory Tests Test 08/05/22 17:59 Lactic Acid Level 2.02 MMOL/L (0.50-2.00) *H Exam Exam Patient acknowledged, consented, and participated in this virtual visit which was conducted using real time audio/video Vital Signs Date Time Temp Pulse Resp B/P (MAP) Pulse Ox O2 Delivery O2 Flow Rate FiO2 08/05/22 21:30 95 14 101/71 (81) 100 Mechanical Ventilator 60.00 08/05/22 21:15 98 14 99/72 (81) 100 Mechanical Ventilator 60.00 08/05/22 21:13 22 100 100 08/05/22 21:07 97 08/05/22 21:00 99 18 121/77 (92) 100 Mechanical Ventilator 60.00 08/05/22 19:52 36.1 103 22 117/80 98 Mechanical Ventilator 08/05/22 19:30 110 107/79 08/05/22 17:30 36.1 113 18 136/90 (105) 98 Height & Weight Height: 5'8.00" Weight: 188lbs. 9.0oz. 85.681169wa; 25.17 BMI Method:Stated General Appearance: WD/WN, Other HEENT: PERRL/EOMI, Other (Very dry oral mucosa) Neck: Normal Inspection Respiratory: Lungs Clear, No Accessory Muscle Use, Other (Tachypnea) Cardiovascular: Regular Rate, Rhythm, Normal Peripheral Pulses (2+ radial), Tachycardia Capillary Refill: Less Than 3 Seconds Extremity: Normal Capillary Refill, Normal Inspection, Normal Range of Motion, No Pedal Edema Neurologic/Psychiatric: Other (GCS 13/40, moves all extremities equally) Skin: Normal Color, Warm/Dry Other comments PE PER RN Results Lab Laboratory Tests 08/05/22 17:59 Assessment/Plan Assessment/Plan ABOVE Critical Care: Ventilator Management Time spent with patient (mins): 38 WENDY HERNANDEZ MD Aug 05, 2022 21:58
[2022-08-05] MEDS ORDERED: LACTATED RINGERS 1,000 ML IV SCH (22:00)
--- NOTE | 2022-08-05 22:01 | Diagnostic Imaging Report ---
INDICATION: Mild bruising. High blood sugar. Acute mental status change. EXAMINATION: CT abdomen and pelvis without contrast, 08/05/2022. All CT scans use one or more of the following dose optimizing techniques: automated exposure control, MA and/or KvP adjustment based on patient size and exam type or iterative reconstruction. COMPARISON: None. FINDINGS: There is a small nodule in the visualized right middle lobe, image #1. This should be followed using the Fleischner criteria. Bibasilar dependent atelectasis versus early infiltrates not excluded. Emphysema changes also present. There is diffuse hepatic steatosis. Nonopacified spleen and pancreas unremarkable for acute abnormality. Adrenal glands are normal. Gallbladder slightly hyperdense perhaps containing stones or sludge, no surrounding inflammation. There is an enteric tube in the stomach. Kidneys unremarkable. There is marked infrarenal aneurysmal dilatation of the abdominal aorta measuring almost 5 cm in greatest dimension. Peripheral thrombus is noted with questionable mild hyperdensity in portions of the thrombus, dissection not excluded. There is no periaortic fluid or hematoma. Mild aneurysmal dilatation of the proximal common iliac arteries noted, bilaterally. No ascites. No free air. Borrero catheter noted in the urinary bladder. Appendix normal. There is no acute osseous abnormality. IMPRESSION: 1. Infrarenal aortic aneurysm almost 5 cm in greatest dimension with questionable mild hyperdensity along the peripheral thrombosed area which can be seen in impending rupture or dissection, which cannot be excluded on this noncontrast CT. If patient is able, CTA could provide further characterization if clinically indicated. 2. Hepatic steatosis. 3. Possible stones or sludge in the gallbladder. 4. Bibasilar atelectasis versus infiltrate with a small nodule in the right middle lobe, see above discussion. Dictated by: Dictated on workstation # [id number]
[2022-08-05 22:12] LABS: ABG BASE EXCESS -18.5 MMOL/L (-2.5-2.5); ABG OXYGEN SATURATION 100 % (94-100); ABG PCO2 24 MMHG (35-45); ABG PO2 288 MMHG (79-93)
[2022-08-05 22:17] LABS: ALLENS TEST YES-POS
[2022-08-05 22:18] LABS: INSPIRED O2 60%; PATIENT TEMP 36.8; VENTILATOR YES
[2022-08-05 22:19] LABS: ABG PH 7.17 (7.37-7.43); ABG TCO2 9.2 MMOL/L (21.0-31.0)
[2022-08-05 22:28] VITALS: BP 101/71
[2022-08-05] MEDS: cefTRIAXone 1 GM PRE-MIX 50 ML IV SCH (22:33)
[2022-08-05 22:50] VITALS: BP 130/89
[2022-08-05] MEDS ORDERED: RT-ALBUTEROL/IPRATROPIUM 3 ML (DUONEB) VIAL INH PRN ×2 (23:00)
[2022-08-05] MEDS ORDERED: RT-IPRATROPIUM (ATROVENT) 0.5MG/2.5ML AMP IH PRN (23:00)
[2022-08-05] MEDS ORDERED: RT-ALBUTEROL SULF 2.5 MG/3 ML PRE-MIX VIAL INH PRN (23:00)
[2022-08-05 23:02] LABS: POTASSIUM 4.6 MMOL/L (3.6-5.0)
[2022-08-05 23:03] LABS: CALCIUM 9.9 MG/DL (8.5-10.1)
[2022-08-05 23:04] LABS: INR 1.1 (0.8-1.4); PROTHROMBIN TIME PATIENT 14.6 SEC (12.2-14.7)
[2022-08-05 23:08] LABS: CREATININE SERUM 2.98 MG/DL (0.60-1.30)
[2022-08-05] MEDS: 1/2 NS IV SOLUTION 1,000 ML IV SCH (23:26)
[2022-08-05] MEDS: PROPOFOL DRIP (ICU) 100 ML IV SCH (23:29)
[2022-08-05] MEDS ORDERED: PROPOFOL DRIP (ICU) 100 ML IV SCH ×2 (23:30)
[2022-08-05] MEDS: DexMEDEtomidine 250 ML DRIP 250 ML IV SCH (23:49)
[2022-08-06 00:12] LABS: POTASSIUM 3.8 MMOL/L (3.6-5.0)
[2022-08-06 00:13] LABS: CALCIUM 9.4 MG/DL (8.5-10.1)
[2022-08-06 00:18] LABS: CREATININE SERUM 2.54 MG/DL (0.60-1.30)
[2022-08-06] MEDS ORDERED: NOREPINEPHRINE 8 MG/250 ML 250 ML IV ONE (01:25)
[2022-08-06 01:26] LABS: POTASSIUM 3.3 MMOL/L (3.6-5.0)
[2022-08-06 01:27] LABS: CALCIUM 9.5 MG/DL (8.5-10.1)
[2022-08-06] MEDS: NOREPINEPHRINE 8 MG/250 ML 250 ML IV SCH ×2 (01:27→11:17)
[2022-08-06 01:31] LABS: PHOSPHORUS 1.3 MG/DL (2.3-4.7)
[2022-08-06 01:32] LABS: CREATININE SERUM 2.61 MG/DL (0.60-1.30)
[2022-08-06 01:34] LABS: MAGNESIUM 2.3 MG/DL (1.6-2.4)
[2022-08-06] MEDS: POTASSIUM CL 10MEQ/50ML IVPB 50 ML IV SCH ×14 (01:34→23:17)
[2022-08-06] MEDS: PROPOFOL DRIP (ICU) 100 ML IV SCH ×5 (03:18→21:13)
[2022-08-06 03:28] LABS: ABG BASE EXCESS -11.4 MMOL/L (-2.5-2.5); ABG OXYGEN SATURATION 99 % (94-100); ABG PCO2 31 MMHG (35-45); ABG PO2 111 MMHG (79-93); ALLENS TEST YES-POS; INSPIRED O2 30%; VENTILATOR YES
[2022-08-06 03:29] LABS: PATIENT TEMP 36.7
[2022-08-06 03:30] LABS: ABG PH 7.28 (7.37-7.43)
[2022-08-06] MEDS: 1/2 NS IV SOLUTION 1,000 ML IV SCH ×7 (03:30→21:21)
[2022-08-06 03:37] LABS: POTASSIUM 3.4 MMOL/L (3.6-5.0)
[2022-08-06 03:38] LABS: CALCIUM 9.6 MG/DL (8.5-10.1)
[2022-08-06 03:39] LABS: TOTAL PROTEIN 5.5 GM/DL (6.4-8.2)
[2022-08-06 03:41] LABS: BILIRUBIN,TOTAL 0.2 MG/DL (0.1-1.0)
[2022-08-06 03:43] LABS: CREATININE SERUM 2.51 MG/DL (0.60-1.30)
[2022-08-06 03:46] LABS: MAGNESIUM 2.3 MG/DL (1.6-2.4)
[2022-08-06 03:55] LABS: PHOSPHORUS 0.8 MG/DL (2.3-4.7)
[2022-08-06] MEDS: KCL 20 MEQ TAB (K-DUR) PO SCH (04:09)
[2022-08-06] MEDS: MAGNESIUM 1 GM/100 ML IVPB 100 ML IV SCH (04:09)
[2022-08-06 04:46] LABS: BASOPHILS % (AUTO) 0 % (0-10); EOSINOPHILS % (AUTO) 0 % (0-10); HEMATOCRIT 43 % (40-54); LYMPHOCYTES # (AUTO) 1.9 10^3/uL (1.0-4.0); LYMPHOCYTES % (AUTO) 15 % (12-44); MEAN CORPUSCULAR HEMOGLOBIN 31 pg (25-34); MEAN CORPUSCULAR HGB CONC 35 g/dL (32-36); MEAN CORPUSCULAR VOLUME 89 fL (80-99); MEAN PLATELET VOLUME 11.9 fL (9.0-12.2); MONOCYTES # (AUTO) 1.4 10^3/uL (0.0-1.0); MONOCYTES % (AUTO) 11 % (0-12); NEUTROPHILS # (AUTO) 9.4 10^3/uL (1.8-7.8); NEUTROPHILS % (AUTO) 73 % (42-75); PLATELET COUNT 225 10^3/uL (130-400); WHITE BLOOD COUNT 12.8 10^3/uL (4.3-11.0)
[2022-08-06 05:26] LABS: MAGNESIUM 2.2 MG/DL (1.6-2.4)
[2022-08-06 05:28] LABS: PHOSPHORUS < 0.7 MG/DL (2.3-4.7)
--- NOTE | 2022-08-06 06:06 | History & Physical-Hospitalist ---
History of Present Illness HPI/Chief Complaint CC: DKA with respiratory failure HPI: This is a 61yoWM clinic patient of [facility] who presented to the ER with AMS and elevated sugar and was found to have DKA with FROYLAN and NSTEMI. Patient required intubation to stabilize and currently he remains intubated. Insulin drip initiated along with Dr Marti consultation for NSTEMI. Creatinine did improved overnight with IVF. I updated brother and girlfriend (she is deaf) and informed them of the presence of an infrarenal aneurysm so I spoke to josee and Dr Marti and they recommended I speak to vascular surgeon and possible transfer so I spoke to Dr Garcia in-depth and he told me this was likely present for l a long time and once kidney function improves a CT scan with IV contrast will be needed in order to prepare for repair after consultation but this was non-emergent. Source: family Exam Limitations: clinical condition (intubation) Date Seen 08/06/22 Time Seen by a Provider: 11:00 Attending Physician Hipolito Gatica MD PCP Admitting Physician: Trinh Oliveros DO Attending Physician: Trinh Oliveros DO Referring Physician Date of Admission Aug 05, 2022 at 20:52 Home Medications & Allergies Home Medications Reviewed patient Home Medication Reconciliation performed by pharmacy medication reconciliations cable television technician and/or nursing. Patients Allergies have been reviewed. Allergies Allergies Coded Allergies No Known Drug Allergies (Verified07/26/09) Past Ffxfkal-Savcrw-Itbrxr Hx Patient Social History Marrital Status: cohabiting Employed/Student: employed Tobacco Use?: Yes Smoking Status: Current Everyday Smoker Smokeless Tobacco Frequency: Unknown if Ever Used Use of E-Cig and/or Vaping dev: Unable to obtain Substance use?: Unable to obtain Alcohol Use?: Unable to obtain Pt feels they are or have been: Unable to obtain Immunizations Up To Date First/Initial COVID19 Vaccinat: UNK Second COVID19 Vaccination Will: UNK Tetanus Booster (TDap): Unknown Current Status Advance Directives: Unable to obtain Communicates: Unable To Communicate Primary Language: [place] Islander Preferred Spoken Language: [place] Islander Is interpretation needed?: No Past Medical History Surgeries: Adenoidectomy, Cardiac, Coronary Stent, Tonsillectomy Pneumonia Coronary Artery Disease, Heart Attack, High Cholesterol, Hypertension Diabetes, Non-Insulin dep Blood Disorders: No Family Medical History Alcoholism 19 FATHER Cardiovascular disease 19 FATHER Dementia 19 MOTHER Hypertension 19 FATHER Heart Disease Review of Systems Constitutional: see HPI Physical Exam Physical Exam Vital Signs Vital Signs - First Documented 08/05/22 08/05/22 08/05/22 17:30 19:52 21:00 Temp 36.1 Pulse 113 Resp 18 B/P (MAP) 136/90 (105) Pulse Ox 98 O2 Delivery Mechanical Ventilator O2 Flow Rate 60.00 FiO2 60 Capillary Refill : Less Than 3 Seconds Height, Weight, BMI Height: 5'8.00" Weight: 188lbs. 9.0oz. [id number]; 26.20 BMI Method:Stated General Appearance: Chronically ill, Other (sedated and intubated) Respiratory: Lungs Clear, Normal Breath Sounds Gastrointestinal: Normal Bowel Sounds Results Results/Procedures Labs Laboratory Tests 08/05/22 17:59 08/05/22 22:46 08/05/22 23:53 08/06/22 01:03 08/06/22 02:57 08/06/22 04:36 08/06/22 07:55 08/06/22 11:53 08/06/22 15:50 08/06/22 20:07 Patient resulted labs reviewed. Assessment/Plan Admission Diagnosis Assessment: Multi-system organ failure Acute respiratory failure requiring intubation in ER DKA FROYLAN NSTEMI Infrarenal aneurysm-no need of emergent repair per vascular surgery phone call consult Smoker Plan: ICU Insulin drip Vent management appreciated IVF Borrero Venous doppler Hep Admission Status: Inpatient Order (span 2 midnights) Reason for Inpatient Admission: resp failure Diagnosis/Problems Diagnosis/Problems (1) DKA (diabetic ketoacidosis) Qualifiers: Diabetes mellitus type: other specified (including GLADYS) Diabetes mellitus complication detail: without coma Qualified Codes: E13.10 - Other specified diabetes mellitus with ketoacidosis without coma (2) Altered mental status Qualifiers: Altered mental status type: unspecified Qualified Codes: R41.82 - Altered mental status, unspecified (3) Non-ST elevated myocardial infarction Status: Acute (4) History of CAD (coronary artery disease) Status: Acute (5) Hypertension Status: Chronic TRINH OLIVEROS DO Aug 06, 2022 06:06
--- NOTE | 2022-08-06 06:35 | Occ Therapy Progress Note ---
Therapy Progress Note Pt currently intubated. Pt will need new orders when extubated, until then OT will monitor pt's status, will initiate treatment when new orders are given and pt is medically stable to participate in skilled therapy. ACACIA MADISON Aug 06, 2022 06:35
--- NOTE | 2022-08-06 07:17 | Physical Therapy Progress Note ---
Therapy Progress Note Patient currently sedated and intubated. PT will monitor patient's status and initiate treatment when patient is able to actively participate with skilled therapy. LAVON YOUNG PT Aug 06, 2022 07:17
[2022-08-06] MEDS ORDERED: POTASSIUM PHOSPHATE INJ 30 MM in NS (IVPB) 250 ML IV ONE (08:00)
--- NOTE | 2022-08-06 08:28 | Consultation-Cardiology ---
HPI-Cardiology Cardiology Consultation Date of Consultation 08/06/22 Date of Admission Time Seen by Provider: 08:24 Indication: Elevated troponin level HPI 61-year-old gentleman with history of coronary artery disease, admitted to the hospital with change in mental status, patient was mumbling, he was borderline hypotensive. He was noted to be in DKA. Patient was intubated. I was unable to interview the patient, history was obtained by reviewing his record. He was noted to have mild elevation in troponin, currently blood pressure is stable. Heart rate is stable. Home Medications & Allergies Allergies: Coded Allergies: No Known Drug Allergies (Verified , 07/26/09) Home Medication List Reviewed: Yes LWT-Irkgac-Cgeclf Hx Patient Social History Drug of Choice: THC, + IV METH USE BY HX Smoking Status: Unknown if Ever Smoked Type Used: Cigarettes Recent Hopitalizations: No Have you traveled recently?: No Alcohol Use?: Unable to obtain Past Medical History Discussed below Family Medical History Significant Family History: Heart Disease Family History: Alcoholism 19 FATHER Cardiovascular disease 19 FATHER Dementia 19 MOTHER Hypertension 19 FATHER Review of Systems-General Review of Systems Constitutional: see HPI, other (Sedated and intubated) Reviewed Test Results Reviewed Test Results Lab Laboratory Tests Test 08/05/22 17:46 08/05/22 17:50 08/05/22 17:59 08/05/22 18:00 Range/Units Influenza Type A (RT-PCR) Not Detected Not Detecte Influenza Type B (RT-PCR) Not Detected Not Detecte SARS-CoV-2 RNA (RT-PCR) Not Detected Not Detecte Blood Gas Puncture Site LEFT WRIST Blood Gas Patient Temperature 36 Arterial Blood pH 7.08 *L 7.37-7.43 Arterial Blood Partial Pressure CO2 13 *L 35-45 MMHG Arterial Blood Partial Pressure O2 100 H 79-93 MMHG Arterial Blood HCO3 4 *L 23-27 MMOL/L Arterial Blood Total CO2 4.0 *L 21.0-31.0 MMOL/L Arterial Blood Oxygen Saturation 97 94-100 % Arterial Blood Base Excess -25.0 L -2.5-2.5 MMOL/L Ashish Test YES-POS Blood Gas Ventilator Setting NO Blood Gas Inspired Oxygen UNK White Blood Count 13.0 H 4.3-11.0 10^3/uL Red Blood Count 6.12 H 4.30-5.52 10^6/uL Hemoglobin 18.6 H 13.3-17.7 g/dL Hematocrit 58 H 40-54 % Mean Corpuscular Volume 94 80-99 fL Mean Corpuscular Hemoglobin 30 25-34 pg Mean Corpuscular Hemoglobin Concent 32 32-36 g/dL Red Cell Distribution Width 13.4 10.0-14.5 % Platelet Count 296 130-400 10^3/uL Mean Platelet Volume 12.3 H 9.0-12.2 fL Immature Granulocyte % (Auto) 1 % Neutrophils (%) (Auto) 86 H 42-75 % Lymphocytes (%) (Auto) 5 L 12-44 % Monocytes (%) (Auto) 8 0-12 % Eosinophils (%) (Auto) 0 0-10 % Basophils (%) (Auto) 0 0-10 % Neutrophils # (Auto) 11.2 H 1.8-7.8 10^3/uL Lymphocytes # (Auto) 0.7 L 1.0-4.0 10^3/uL Monocytes # (Auto) 1.1 H 0.0-1.0 10^3/uL Eosinophils # (Auto) 0.0 0.0-0.3 10^3/uL Basophils # (Auto) 0.0 0.0-0.1 10^3/uL Immature Granulocyte # (Auto) 0.1 0.0-0.1 10^3/uL Neutrophils % (Manual) 86 % Lymphocytes % (Manual) 5 % Monocytes % (Manual) 2 % Eosinophils % (Manual) 0 % Basophils % (Manual) 0 % Band Neutrophils 2 % Reactive Lymphocytes 5 % Blood Morphology Comment NORMAL Erythrocyte Sedimentation Rate 1 0-30 MM/HR Prothrombin Time 14.6 12.2-14.7 SEC INR Comment 1.1 0.8-1.4 Activated Partial Thromboplast Time 36 H 24-35 SEC D-Dimer 1.75 H 0.00-0.49 UG/ML Sodium Level 136 135-145 MMOL/L Potassium Level 5.6 H 3.6-5.0 MMOL/L Chloride Level 102 98-107 MMOL/L Carbon Dioxide Level 6 *L 21-32 MMOL/L Anion Gap 28 H 5-14 MMOL/L Blood Urea Nitrogen 41 H 7-18 MG/DL Creatinine 3.72 H 0.60-1.30 MG/DL Estimat Glomerular Filtration Rate 17 BUN/Creatinine Ratio 11 Glucose Level 936 *H 70-105 MG/DL Lactic Acid Level 2.02 *H 0.50-2.00 MMOL/L Calcium Level 11.5 H 8.5-10.1 MG/DL Corrected Calcium 11.2 H 8.5-10.1 MG/DL Magnesium Level 3.0 H 1.6-2.4 MG/DL Total Bilirubin 0.3 0.1-1.0 MG/DL Aspartate Amino Transf (AST/SGOT) 10 5-34 U/L Alanine Aminotransferase (ALT/SGPT) 33 0-55 U/L Alkaline Phosphatase 145 H 40-136 U/L Ammonia 35 H 11-32 UMOL/L Total Creatine Kinase 48 30-200 U/L Creatine Kinase MB 1.6 <6.6 NG/ML Myoglobin 333.8 H 10.0-92.0 NG/ML Troponin I 0.045 H <0.028 NG/ML C-Reactive Protein High Sensitivity 2.38 H 0.00-0.50 MG/DL B-Type Natriuretic Peptide 33.7 <100.0 PG/ML Total Protein 7.9 6.4-8.2 GM/DL Albumin 4.4 3.2-4.5 GM/DL Amylase Level 257 H 25-125 U/L Lipase 249 H 8-78 U/L Beta-Hydroxybutyrate (Chem panel) 13.01 H 0.00-0.27 MMOL/L TSH [place] Testing 0.85 0.35-4.94 UIU/ML Acetaminophen Level < 10 L 10-30 UG/ML Serum Alcohol < 10 <10 MG/DL Urine Color YELLOW Urine Clarity CLEAR Urine pH 6.0 5-9 Urine Specific Bryan 1.025 H 1.016-1.022 Urine Protein 1+ H NEGATIVE Urine Glucose (UA) 3+ H NEGATIVE Urine Ketones 2+ H NEGATIVE Urine Nitrite NEGATIVE NEGATIVE Urine Bilirubin 1+ H NEGATIVE Urine Urobilinogen 0.2 < = 1.0 MG/DL Urine Leukocyte Esterase NEGATIVE NEGATIVE Urine RBC (Auto) 1+ H NEGATIVE Urine RBC RARE /HPF Urine WBC RARE /HPF Urine Squamous Epithelial Cells RARE /HPF Urine Crystals NONE /LPF Urine Bacteria NEGATIVE /HPF Urine Casts NONE /LPF Urine Mucus NEGATIVE /LPF Urine Culture Indicated NO Urine Opiates Screen NEGATIVE NEGATIVE Urine Oxycodone Screen NEGATIVE NEGATIVE Urine Methadone Screen NEGATIVE NEGATIVE Urine Propoxyphene Screen NEGATIVE NEGATIVE Urine Barbiturates Screen NEGATIVE NEGATIVE Ur Tricyclic Antidepressants Screen NEGATIVE NEGATIVE Urine Phencyclidine Screen NEGATIVE NEGATIVE Urine Amphetamines Screen NEGATIVE NEGATIVE Urine Methamphetamines Screen NEGATIVE NEGATIVE Urine Benzodiazepines Screen NEGATIVE NEGATIVE Urine Cocaine Screen NEGATIVE NEGATIVE Urine Cannabinoids Screen NEGATIVE NEGATIVE Test 08/05/22 21:45 08/05/22 22:06 08/05/22 22:46 08/05/22 23:53 Range/Units Lactic Acid Level 2.15 *H 2.45 *H 0.50-2.00 MMOL/L Blood Gas Puncture Site LRAD Blood Gas Patient Temperature 36.8 Arterial Blood pH 7.17 *L 7.37-7.43 Arterial Blood Partial Pressure CO2 24 L 35-45 MMHG Arterial Blood Partial Pressure O2 288 H 79-93 MMHG Arterial Blood HCO3 8 *L 23-27 MMOL/L Arterial Blood Total CO2 9.2 *L 21.0-31.0 MMOL/L Arterial Blood Oxygen Saturation 100 94-100 % Arterial Blood Base Excess -18.5 L -2.5-2.5 MMOL/L Ashish Test YES-POS Blood Gas Ventilator Setting YES Blood Gas Inspired Oxygen 60% Prothrombin Time 14.6 12.2-14.7 SEC INR Comment 1.1 0.8-1.4 Activated Partial Thromboplast Time 33 24-35 SEC Sodium Level 142 147 H 135-145 MMOL/L Potassium Level 4.6 3.8 3.6-5.0 MMOL/L Chloride Level 113 #H 112 H 98-107 MMOL/L Carbon Dioxide Level 8 *L 11 L 21-32 MMOL/L Anion Gap 21 H 24 H 5-14 MMOL/L Blood Urea Nitrogen 42 H 38 H 7-18 MG/DL Creatinine 2.98 #H 2.54 #H 0.60-1.30 MG/DL Estimat Glomerular Filtration Rate 23 28 BUN/Creatinine Ratio 14 15 Glucose Level 781 *H 683 *H 70-105 MG/DL Calcium Level 9.9 9.4 8.5-10.1 MG/DL Triglycerides Level 621 H 479 #H <150 MG/DL Beta-Hydroxybutyrate (Chem panel) 8.42 H 0.00-0.27 MMOL/L Test 08/06/22 01:03 08/06/22 01:07 08/06/22 01:55 08/06/22 02:57 Range/Units Sodium Level 146 H 146 H 135-145 MMOL/L Potassium Level 3.3 L 3.4 L 3.6-5.0 MMOL/L Chloride Level 114 H 115 H 98-107 MMOL/L Carbon Dioxide Level 10 L 12 L 21-32 MMOL/L Anion Gap 22 H 19 H 5-14 MMOL/L Blood Urea Nitrogen 39 H 39 H 7-18 MG/DL Creatinine 2.61 H 2.51 H 0.60-1.30 MG/DL Estimat Glomerular Filtration Rate 27 28 BUN/Creatinine Ratio 15 16 Glucose Level 648 *H 565 *H 70-105 MG/DL Lactic Acid Level 1.51 0.50-2.00 MMOL/L Calcium Level 9.5 9.6 8.5-10.1 MG/DL Phosphorus Level 1.3 L 0.8 *L 2.3-4.7 MG/DL Magnesium Level 2.3 2.3 1.6-2.4 MG/DL Glucometer 523 *H 491 *H 70-110 MG/DL Activated Partial Thromboplast Time 192 *H 24-35 SEC Corrected Calcium 10.4 H 8.5-10.1 MG/DL Total Bilirubin 0.2 0.1-1.0 MG/DL Aspartate Amino Transf (AST/SGOT) 14 5-34 U/L Alanine Aminotransferase (ALT/SGPT) 24 0-55 U/L Alkaline Phosphatase 89 40-136 U/L Troponin I 0.039 H <0.028 NG/ML Total Protein 5.5 L 6.4-8.2 GM/DL Albumin 3.0 L 3.2-4.5 GM/DL Test 08/06/22 03:00 08/06/22 03:15 08/06/22 04:05 08/06/22 04:36 Range/Units Glucometer 440 *H 403 *H 70-110 MG/DL Blood Gas Puncture Site LRAD Blood Gas Patient Temperature 36.7 Arterial Blood pH 7.28 *L 7.37-7.43 Arterial Blood Partial Pressure CO2 31 L 35-45 MMHG Arterial Blood Partial Pressure O2 111 H 79-93 MMHG Arterial Blood HCO3 14 *L 23-27 MMOL/L Arterial Blood Total CO2 15.0 L 21.0-31.0 MMOL/L Arterial Blood Oxygen Saturation 99 94-100 % Arterial Blood Base Excess -11.4 L -2.5-2.5 MMOL/L Ashish Test YES-POS Blood Gas Ventilator Setting YES Blood Gas Inspired Oxygen 30% White Blood Count 12.8 H 4.3-11.0 10^3/uL Red Blood Count 4.86 4.30-5.52 10^6/uL Hemoglobin 15.0 13.3-17.7 g/dL Hematocrit 43 40-54 % Mean Corpuscular Volume 89 80-99 fL Mean Corpuscular Hemoglobin 31 25-34 pg Mean Corpuscular Hemoglobin Concent 35 32-36 g/dL Red Cell Distribution Width 13.2 10.0-14.5 % Platelet Count 225 130-400 10^3/uL Mean Platelet Volume 11.9 9.0-12.2 fL Immature Granulocyte % (Auto) 1 % Neutrophils (%) (Auto) 73 42-75 % Lymphocytes (%) (Auto) 15 12-44 % Monocytes (%) (Auto) 11 0-12 % Eosinophils (%) (Auto) 0 0-10 % Basophils (%) (Auto) 0 0-10 % Neutrophils # (Auto) 9.4 H 1.8-7.8 10^3/uL Lymphocytes # (Auto) 1.9 1.0-4.0 10^3/uL Monocytes # (Auto) 1.4 H 0.0-1.0 10^3/uL Eosinophils # (Auto) 0.0 0.0-0.3 10^3/uL Basophils # (Auto) 0.0 0.0-0.1 10^3/uL Immature Granulocyte # (Auto) 0.1 0.0-0.1 10^3/uL Phosphorus Level < 0.7 *L 2.3-4.7 MG/DL Magnesium Level 2.2 1.6-2.4 MG/DL Test 08/06/22 04:53 08/06/22 06:08 08/06/22 07:25 08/06/22 07:55 Range/Units Glucometer 366 H 313 H 262 H 70-110 MG/DL Physical Exam Physical Exam Vital Signs Vital Signs - First Documented 08/05/22 08/05/22 08/05/22 17:30 19:52 21:00 Temp 36.1 Pulse 113 Resp 18 B/P (MAP) 136/90 (105) Pulse Ox 98 O2 Delivery Mechanical Ventilator O2 Flow Rate 60.00 FiO2 60 Capillary Refill : Less Than 3 Seconds Height, Weight, BMI Height: 5'8.00" Weight: 188lbs. 9.0oz. 85.622382pz; 26.20 BMI Method:Stated General Appearance: WD/WN, Other (Sedated and intubated) Eyes: Bilateral Eye Normal Inspection, Bilateral Eye PERRL (Pupils are pinpoint bilaterally), Bilateral Eye EOMI HEENT: PERRL/EOMI, Other (Very dry oral mucosa) Neck: Normal Inspection Respiratory: Lungs Clear, No Accessory Muscle Use, Other (Tachypnea) Cardiovascular: Regular Rate, Rhythm, Normal Peripheral Pulses (2+ radial), Tachycardia Gastrointestinal: Normal Bowel Sounds, Soft Genital/Rectal: Normal Genital Exam Back: Normal Inspection Extremity: Normal Capillary Refill, Normal Inspection, Normal Range of Motion, No Pedal Edema Neurologic/Psychiatric: Other (Sedated and intubated) Skin: Normal Color, Warm/Dry A/P-Cardiology Admission Diagnosis Acute respiratory failure Diabetic ketoacidosis Type II myocardial infarction Acute renal failure Assessment/Plan Acute respiratory failure, ventilator dependent, sedated and intubated at this time Managed by medical team Diabetic ketoacidosis, slow improvement in glucose level. Continue to monitor Electrolyte imbalance, managed by primary care team Acute renal failure, continue on IV fluid and monitor closely Coronary artery disease, history of stent to the LAD in the remote past Cardiac catheterization done by Dr. Cortes in 2018 showing mild to moderate disease with patent stent nonobstructive disease Has been maintained on aspirin as an outpatient Mild elevation in troponin probably type II myocardial infarction secondary to hypotension and respiratory failure Continue to monitor trend Agree with the use of heparin at this point. Acute change in mental status secondary to metabolic encephalopathy. Hypertension, monitor blood pressure Hyperlipidemia, monitor lipids VANESSA SHERWOOD MD Aug 06, 2022 08:28
[2022-08-06 08:40] LABS: CALCIUM 9.2 MG/DL (8.5-10.1); CREATININE SERUM 2.07 MG/DL (0.60-1.30); MAGNESIUM 2.1 MG/DL (1.6-2.4); PHOSPHORUS 1.7 MG/DL (2.3-4.7)
[2022-08-06] MEDS: DOCUSATE SODIUM 100 MG (COLACE) CAP PO SCH ×2 (08:53→21:20)
[2022-08-06] MEDS: SENNOSIDES 8.6 MG (SENOKOT) TAB PO SCH ×2 (08:53→21:14)
[2022-08-06] MEDS: ASPIRIN 81 MG CHEW (CHILDREN'S ASA) NG SCH (08:53)
[2022-08-06] MEDS: PANTOPRAZOLE 40 MG (PROTONIX) VIAL IV SCH (08:53)
[2022-08-06] MEDS ORDERED: ROCURONIUM 10 MG/ML 5 ML SYRINGE IV ONE (08:54)
[2022-08-06] MEDS ORDERED: ETOMIDATE IV SOLN 20 MG/10 ML VIAL IV ONE (08:54)
[2022-08-06] MEDS ORDERED: PANTOPRAZOLE 40 MG (PROTONIX) VIAL IV SCH (09:00)
[2022-08-06 09:30] VITALS: BP 106/69
[2022-08-06] MEDS ORDERED: ATROPINE INJECTION 1 MG/10 ML SYR (ABBOTT) ONE (10:02)
[2022-08-06] MEDS ORDERED: ATROPINE INJECTION 1 MG/1 ML SDV IJ PRN (10:15)
[2022-08-06] MEDS ORDERED: ASPI-1238 PO (10:18)
--- NOTE | 2022-08-06 10:41 | Tele-ICU Progress Note ---
Subjective Date Seen by a Provider: Aug 06, 2022 Time Seen by a Provider: 10:41 Subjective/Events-last exam (Tele-ICU Physician , Progress Note ) Service provided via interactive audio and video telecommunications E-CARE system to a patient admitted to ICU bed in [facility]. Patient is seen today due to persistent need of ICU care Available chart/ vitals / labs / Images reviewed Video assessment done using teleICU camera, rest of exam as per RN Discussed with RN Events overnight : Afebrile hemodynamically stable Respiratory - I/O = Drips: Pressors- no VENT SETTINGS and ABG reviewed NOT CANDIDATE for SBTreviewed possible contraindications including Cardiovascular Stability /Sedation Score / FI02/PEEP / ABG / CXR/ secretions Sedation, discussed with RN, RASS - on propofol 25 precedex 0.6 Consultants: Hospital course: (08.05) Admitted a 61 y/o DKA (new onset DM~BS 936), FROYLAN. Intubated for airway protection A/P Acute resp failure - intubated 08/05 - mental status - on 25 % , will keep on vent today -+ secretions Shock - card vs sepsis vs acidosis - on levo - to wean - ECHO pending - will check cortisol if can not wean off DKA, new Dx of DM -*Insulin drip, continue to monitor for resolution of acidosis, AG and electrolytes. Continue hydration. FROYLAN - improving , cont hydration CAD , with previous stents - now with Elev trop - on heparin gtt - ECHO pending - cards consulted Possible R PNA ( neg covid and flu) -cont rocephin - sputum cx pendint Encephalopathy - CTH neg 08/05 - moves on SAT - ammonia [address] - follow ammonia and lft Small nodule in the right middle lobe - smoker - fo follow as per PCP Infrarenal aortic aneurysm almost 5 cm - impending rupture or dissection as per radiology - will ask bedside team to review with vascular - not allow high BP Drop in HB - delutional Lines : R IJ 08/05 , (Central Line Necessity Reviewed) Borrero: 08/05 OG: Nutrition: nop Analgesia: Anxiety/ delirium VTE Prophylaxis: hep gtt Stress Ulcer Prophylaxis: ppi Plans in collaboration with bedside consultants and IM MDs. Discussed with RN to reach out if any questions or concerns A total of 37 minutes of critical care time was devoted to this patient today, required to treat and/or prevent further deterioration of critical care condition ( as above ) . I am remotely monitoring this patient from another state. I am unable to do the bedside exam, and history/physical and pertinent information is taken from other notes in the computer and bedside staff. Sepsis Event Evaluation Height, Weight, BMI Height: 5'8.00" Weight: 188lbs. 9.0oz. 85.673868aq; 26.20 BMI Method:Stated Focused Exam Lactate Level 08/05/22 21:45: Lactic Acid Level 2.15*H 08/05/22 23:53: Lactic Acid Level 2.45*H 08/06/22 01:03: Lactic Acid Level 1.51 Exam Exam Patient acknowledged, consented, and participated in this virtual visit which was conducted using real time audio/video Vital Signs Date Time Temp Pulse Resp B/P (MAP) Pulse Ox O2 Delivery O2 Flow Rate FiO2 08/06/22 10:00 61 28 95/64 (74) 97 Mechanical Ventilator 25.00 08/06/22 09:55 38 08/06/22 09:09 Mechanical Ventilator 25.00 08/06/22 09:00 58 21 92/65 (74) 97 Mechanical Ventilator 25.00 08/06/22 08:17 60 93/62 08/06/22 08:00 62 22 95/65 (75) 100 Mechanical Ventilator 30.00 08/06/22 08:00 97 Mechanical Ventilator 30.00 08/06/22 07:48 36.5 08/06/22 07:48 67 124/77 08/06/22 07:27 67 124/77 08/06/22 07:00 65 08/06/22 07:00 65 21 116/74 (88) 98 Mechanical Ventilator 30.00 08/06/22 06:15 67 75/54 08/06/22 06:00 68 21 92/61 (71) 98 Mechanical Ventilator 30.00 08/06/22 05:23 68 82/58 08/06/22 05:16 69 79/56 08/06/22 05:13 72 78/55 08/06/22 05:00 70 22 80/57 (65) 100 Mechanical Ventilator 30.00 08/06/22 04:43 73 22 100 08/06/22 04:24 68 163/90 08/06/22 04:17 36.7 Mechanical Ventilator 30.00 08/06/22 04:08 70 79/56 08/06/22 04:00 68 22 71/48 (56) 98 Mechanical Ventilator 60.00 08/06/22 03:44 71 103/72 08/06/22 03:29 71 103/72 08/06/22 03:18 71 103/72 08/06/22 03:00 71 22 103/72 (82) 99 Mechanical Ventilator 60.00 08/06/22 02:00 76 22 106/75 (85) 98 Mechanical Ventilator 60.00 08/06/22 01:27 87 83/60 08/06/22 01:00 87 08/06/22 01:00 87 22 83/60 (68) 98 Mechanical Ventilator 60.00 08/06/22 00:00 36.6 Mechanical Ventilator 60.00 08/06/22 00:00 95 19 130/92 (105) 100 Mechanical Ventilator 60.00 08/05/22 23:49 95 160/105 08/05/22 23:30 96 18 135/85 (102) 100 Mechanical Ventilator 60.00 08/05/22 23:29 93 106/78 08/05/22 23:00 93 22 106/78 (87) 100 Mechanical Ventilator 60.00 08/05/22 22:50 93 23 100 40 08/05/22 22:45 93 22 119/78 (92) 100 Mechanical Ventilator 60.00 08/05/22 22:33 36.4 08/05/22 22:30 94 22 130/89 (103) 100 Mechanical Ventilator 60.00 08/05/22 22:28 95 100 08/05/22 22:15 93 126/91 (103) 100 Mechanical Ventilator 60.00 08/05/22 22:00 93 116/81 (93) 100 Mechanical Ventilator 60.00 08/05/22 21:45 93 114/81 (92) 100 Mechanical Ventilator 60.00 08/05/22 21:30 95 14 101/71 (81) 100 Mechanical Ventilator 60.00 08/05/22 21:15 98 14 99/72 (81) 100 Mechanical Ventilator 60.00 08/05/22 21:13 22 100 100 08/05/22 21:07 97 08/05/22 21:00 99 18 100 60 08/05/22 21:00 99 18 121/77 (92) 100 Mechanical Ventilator 60.00 1/25/23 19:52 36.1 103 22 117/80 98 Mechanical Ventilator 08/05/22 19:30 110 107/79 08/05/22 17:30 36.1 113 18 136/90 (105) 98 I & O 08/06/22 06:59 Intake Total 4250 ml Output Total 1555 ml Balance 2695 ml Height & Weight Height: 5'8.00" Weight: 188lbs. 9.0oz. 85.353065ku; 26.20 BMI Method:Stated General Appearance: WD/WN, Other (Sedated and intubated) HEENT: PERRL/EOMI, Other (Very dry oral mucosa) Neck: Normal Inspection Respiratory: Lungs Clear, No Accessory Muscle Use, Other (Tachypnea) Cardiovascular: Regular Rate, Rhythm, Normal Peripheral Pulses (2+ radial), Tachycardia Capillary Refill: Less Than 3 Seconds Extremity: Normal Capillary Refill, Normal Inspection, Normal Range of Motion, No Pedal Edema Neurologic/Psychiatric: Other (Sedated and intubated) Skin: Normal Color, Warm/Dry Results Lab Laboratory Tests 08/05/22 17:59 08/05/22 22:46 08/05/22 23:53 08/06/22 01:03 08/06/22 02:57 08/06/22 04:36 08/06/22 07:55 Assessment/Plan Assessment/Plan 1 FIDEL DRAKE MD Aug 06, 2022 10:41
[2022-08-06] MEDS ORDERED: ATROPINE INJECTION 1 MG/10 ML SYR (ABBOTT) IJ PRN (10:45)
[2022-08-06 12:18] LABS: ALBUMIN 2.8 GM/DL (3.2-4.5); BILIRUBIN,DIRECT 0.1 MG/DL (0.0-0.3); BILIRUBIN,INDIRECT 0.2 MG/DL; BILIRUBIN,TOTAL 0.3 MG/DL (0.1-1.0); CALCIUM 8.9 MG/DL (8.5-10.1); CREATININE SERUM 1.97 MG/DL (0.60-1.30); MAGNESIUM 1.9 MG/DL (1.6-2.4); PHOSPHORUS 1.2 MG/DL (2.3-4.7); POTASSIUM 3.7 MMOL/L (3.6-5.0)
--- NOTE | 2022-08-06 12:35 | Diagnostic Imaging Report ---
PROCEDURE: US Venous Lower Ext Shahzad. TECHNIQUE: Multiple real-time grayscale images were obtained over the lower extremities in various projections, bilaterally. Additional duplex Doppler and color Doppler images were also obtained. INDICATION: DVT. There is no evidence of right or left lower extremity DVT. Both large curtis-DVT venous systems demonstrate normal compressibility with normal response augmentation and Valsalva. No fluid collection or mass is detected. IMPRESSION: No evidence of right or left lower extremity DVT. Dictated by: Dictated on workstation # [id number]
[2022-08-06 13:30] VITALS: BP 106/69
[2022-08-06] MEDS: SODIUM PHOSPHATE INJ 30 MM in NS (IVPB) 250 ML INJ ONE ×2 (13:40→13:44)
[2022-08-06] MEDS: D5 1/2 NS 1000 ML IV SOLUTION 1,000 ML IV SCH ×3 (13:49→21:14)
[2022-08-06 15:56] LABS: BASOPHILS % (AUTO) 0 % (0-10); EOSINOPHILS % (AUTO) 0 % (0-10); HEMATOCRIT 36 % (40-54); HEMOGLOBIN 12.6 g/dL (13.3-17.7); LYMPHOCYTES # (AUTO) 1.2 10^3/uL (1.0-4.0); LYMPHOCYTES % (AUTO) 14 % (12-44); MEAN CORPUSCULAR HEMOGLOBIN 31 pg (25-34); MEAN CORPUSCULAR HGB CONC 35 g/dL (32-36); MEAN CORPUSCULAR VOLUME 88 fL (80-99); MEAN PLATELET VOLUME 11.4 fL (9.0-12.2); MONOCYTES # (AUTO) 0.9 10^3/uL (0.0-1.0); MONOCYTES % (AUTO) 11 % (0-12); NEUTROPHILS # (AUTO) 6.1 10^3/uL (1.8-7.8); NEUTROPHILS % (AUTO) 74 % (42-75); PLATELET COUNT 165 10^3/uL (130-400); WHITE BLOOD COUNT 8.3 10^3/uL (4.3-11.0)
[2022-08-06 16:20] LABS: POTASSIUM 3.5 MMOL/L (3.6-5.0)
[2022-08-06 16:22] LABS: CALCIUM 8.5 MG/DL (8.5-10.1)
[2022-08-06 16:26] LABS: CREATININE SERUM 1.74 MG/DL (0.60-1.30); PHOSPHORUS 1.9 MG/DL (2.3-4.7)
[2022-08-06 16:28] LABS: MAGNESIUM 1.8 MG/DL (1.6-2.4)
[2022-08-06 19:06] VITALS: BP 110/63
[2022-08-06 20:37] LABS: CALCIUM 8.4 MG/DL (8.5-10.1); CREATININE SERUM 1.48 MG/DL (0.60-1.30); MAGNESIUM 1.7 MG/DL (1.6-2.4); PHOSPHORUS 1.9 MG/DL (2.3-4.7); POTASSIUM 3.6 MMOL/L (3.6-5.0)
[2022-08-06] MEDS: cefTRIAXone 1 GM PRE-MIX 50 ML IV SCH (21:13)
[2022-08-06 22:48] VITALS: BP 118/73
[2022-08-07 00:29] LABS: POTASSIUM 3.4 MMOL/L (3.6-5.0)
[2022-08-07 00:31] LABS: CALCIUM 8.4 MG/DL (8.5-10.1)
[2022-08-07 00:35] LABS: CREATININE SERUM 1.31 MG/DL (0.60-1.30)
[2022-08-07] MEDS: 1/2 NS IV SOLUTION 1,000 ML IV SCH ×3 (02:08→14:50)
[2022-08-07] MEDS: POTASSIUM CL 10MEQ/50ML IVPB 50 ML IV SCH ×12 (02:08→12:12)
[2022-08-07] MEDS: PROPOFOL DRIP (ICU) 100 ML IV SCH ×6 (02:09→23:26)
[2022-08-07] MEDS: D5 1/2 NS 1000 ML IV SOLUTION 1,000 ML IV SCH ×4 (02:16→23:26)
[2022-08-07] MEDS: DexMEDEtomidine 250 ML DRIP 250 ML IV SCH (02:36)
[2022-08-07 02:45] VITALS: BP 147/74
[2022-08-07 03:56] LABS: BASOPHILS % (AUTO) 0 % (0-10); EOSINOPHILS % (AUTO) 0 % (0-10)
[2022-08-07 03:57] LABS: HEMATOCRIT 32 % (40-54); HEMOGLOBIN 11.1 g/dL (13.3-17.7); LYMPHOCYTES # (AUTO) 1.7 10^3/uL (1.0-4.0); LYMPHOCYTES % (AUTO) 24 % (12-44); MEAN CORPUSCULAR HEMOGLOBIN 30 pg (25-34); MEAN CORPUSCULAR HGB CONC 34 g/dL (32-36); MEAN CORPUSCULAR VOLUME 89 fL (80-99); MEAN PLATELET VOLUME 11.8 fL (9.0-12.2); MONOCYTES # (AUTO) 0.8 10^3/uL (0.0-1.0); MONOCYTES % (AUTO) 11 % (0-12); NEUTROPHILS # (AUTO) 4.6 10^3/uL (1.8-7.8); NEUTROPHILS % (AUTO) 65 % (42-75); PLATELET COUNT 133 10^3/uL (130-400); WHITE BLOOD COUNT 7.1 10^3/uL (4.3-11.0)
[2022-08-07 04:08] LABS: ALBUMIN 2.5 GM/DL (3.2-4.5); POTASSIUM 3.2 MMOL/L (3.6-5.0)
[2022-08-07 04:09] LABS: CALCIUM 8.3 MG/DL (8.5-10.1)
[2022-08-07 04:11] LABS: TOTAL PROTEIN 4.4 GM/DL (6.4-8.2)
[2022-08-07 04:12] LABS: BILIRUBIN,TOTAL 0.2 MG/DL (0.1-1.0)
[2022-08-07 04:14] LABS: CREATININE SERUM 1.21 MG/DL (0.60-1.30); PHOSPHORUS 1.3 MG/DL (2.3-4.7)
[2022-08-07 04:17] LABS: MAGNESIUM 1.5 MG/DL (1.6-2.4)
[2022-08-07 04:26] LABS: ABG OXYGEN SATURATION 97 % (94-100); ABG PCO2 31 MMHG (35-45); ABG PH 7.38 (7.37-7.43); ABG PO2 68 MMHG (79-93); ABG TCO2 19.1 MMOL/L (21.0-31.0); ALLENS TEST YES-POS; INSPIRED O2 60%; VENTILATOR NO
[2022-08-07] MEDS: MAGNESIUM 1 GM/100 ML IVPB 100 ML IV SCH ×3 (04:46→04:54)
[2022-08-07] MEDS: KCL 20 MEQ TAB (K-DUR) PO SCH (04:54)
--- NOTE | 2022-08-07 06:16 | Progress Note - Hospitalist ---
Subjective HPI/CC On Admission Date Seen by Provider: Aug 07, 2022 Time Seen by Provider: 11:00 CC: DKA with respiratory failure HPI: This is a 61yoWM clinic patient of [facility] who presented to the ER with AMS and elevated sugar and was found to have DKA with FROYLAN and NSTEMI. Patient required intubation to stabilize and currently he remains intubated. Insulin drip initiated along with Dr Marti consultation for NSTEMI. Creatinine did improved overnight with IVF. I updated brother and girlfriend (she is deaf) and informed them of the presence of an infrarenal aneurysm so I spoke to josee and Dr Marti and they recommended I speak to vascular surgeon and possible transfer so I spoke to Dr Garcia in-depth and he told me this was likely present for l a long time and once kidney function improves a CT scan with IV contrast will be needed in order to prepare for repair after consultation but this was non-emergent. Subjective/Events-last exam Still intubated Updated brother and girlfriend at bedside Wean was not successful Monitoring sugars closely Focused Exam Lactate Level 08/05/22 21:45: Lactic Acid Level 2.15*H 08/05/22 23:53: Lactic Acid Level 2.45*H 08/06/22 01:03: Lactic Acid Level 1.51 Objective Exam Vital Signs Vital Signs Date Time Temp Pulse Resp B/P (MAP) Pulse Ox O2 Delivery O2 Flow Rate FiO2 08/07/22 20:00 47 16 115/75 (88) 98 Mechanical Ventilator 35.00 08/07/22 20:00 36.5 08/07/22 18:38 35 Capillary Refill : Less Than 3 Seconds General Appearance: No Apparent Distress, WD/WN, Chronically ill, Other (sedated and intubated) Respiratory: Lungs Clear Cardiovascular: Regular Rate, Rhythm Results/Procedures Lab Laboratory Tests 08/07/22 00:12 08/07/22 03:48 08/07/22 07:30 08/07/22 12:20 Patient resulted labs reviewed. Assessment/Plan Assessment and Plan Assess & Plan/Chief Complaint Assessment: Multi-system organ failure Acute respiratory failure requiring intubation in ER DKA FROYLAN NSTEMI Infrarenal aneurysm-no need of emergent repair per vascular surgery phone call consult Smoker Plan: ICU Insulin drip Vent management appreciated IVF Borrero Venous doppler Hep Critical Care Ventilator Management Diagnosis/Problems Diagnosis/Problems (1) DKA (diabetic ketoacidosis) Qualifiers: Diabetes mellitus type: other specified (including GLADYS) Diabetes mellitus complication detail: without coma Qualified Codes: E13.10 - Other specified diabetes mellitus with ketoacidosis without coma (2) Altered mental status Qualifiers: Altered mental status type: unspecified Qualified Codes: R41.82 - Altered mental status, unspecified (3) Non-ST elevated myocardial infarction Status: Acute (4) History of CAD (coronary artery disease) Status: Acute (5) Hypertension Status: Chronic ARUN OLIVEROS DO Aug 07, 2022 06:16
[2022-08-07] MEDS: NOREPINEPHRINE 8 MG/250 ML 250 ML IV SCH (06:31)
--- NOTE | 2022-08-07 06:38 | Occ Therapy Progress Note ---
Therapy Progress Note Orders received 08/06/2022. Pt currently intubated. Pt will need new orders when extubated, until then OT will monitor pt's status, will initiate treatment when new orders are given and pt is medically stable to participate in skilled therapy. ACACIA MADISON Aug 07, 2022 06:38
[2022-08-07 07:06] VITALS: BP 156/89
--- NOTE | 2022-08-07 07:10 | Physical Therapy Progress Note ---
Therapy Progress Note Patient currently sedated and intubated. PT will monitor patient's status and initiate treatment when patient is able to actively participate with skilled therapy. LAVON YOUNG PT Aug 07, 2022 07:10
[2022-08-07 07:53] LABS: POTASSIUM 3.3 MMOL/L (3.6-5.0)
[2022-08-07 07:55] LABS: CALCIUM 8.4 MG/DL (8.5-10.1)
[2022-08-07 07:59] LABS: CREATININE SERUM 1.14 MG/DL (0.60-1.30)
[2022-08-07] MEDS: ASPIRIN 81 MG CHEW (CHILDREN'S ASA) NG SCH (08:15)
[2022-08-07] MEDS: SENNOSIDES 8.6 MG (SENOKOT) TAB PO SCH ×2 (08:15→20:52)
[2022-08-07] MEDS: PANTOPRAZOLE 40 MG (PROTONIX) VIAL IV SCH (08:16)
[2022-08-07] MEDS: DOCUSATE SODIUM 100 MG (COLACE) CAP PO SCH ×2 (08:24→20:53)
--- NOTE | 2022-08-07 09:00 | Tele-ICU Progress Note ---
Subjective Date Seen by a Provider: Aug 07, 2022 Time Seen by a Provider: 09:00 Subjective/Events-last exam (Tele-ICU Physician , Progress Note ) Service provided via interactive audio and video telecommunications E-CARE system to a patient admitted to ICU bed in [facility]. Patient is seen today due to persistent need of ICU care Available chart/ vitals / labs / Images reviewed Video assessment done using teleICU camera, rest of exam as per RN Discussed with RN Events overnight : Afebrile hemodynamically stable Respiratory - 25% I/O = pos 10 L since admission Drips: Pressors- no VENT SETTINGS and ABG reviewed CANDIDATE for SBTreviewed possible contraindications including Cardiovascular Stability /Sedation Score / FI02/PEEP / ABG / CXR/ secretions Sedation, discussed with RN, RASS - on propofol 35 , precedex OFF due to TERRA WITH PRECEDEX ( tried twice ) Consultants: Hospital course: (08.05) Admitted a 61 y/o DKA (new onset DM~BS 936), FROYLAN. Intubated for airway protection, 08/06- US LE - neg for DVT on 08/06 ,precedex OFF due to TERRA WITH PRECEDEX ( tried twice ) ECHO EF 60 % 08/07 - A/P Acute resp failure - intubated 08/05 - mental status - WILL TRY SBT today - on 25 % -+ secretions Shock - card vs sepsis vs acidosis - on levo - 0.1 - ? RELATED TO SEDATION? - ECHO EF 60 % 08/06 - will check cortisol if can not wean off DKA, new Dx of DM -*Insulin drip to cjhange to non DKA , and plan for future insulin dosin depending on the extubation Continue hydration , decrease rate FROYLAN - improvied CAD , with previous stents - now with Elev trop - OFF heparin gtt - ECHO rf 60 % , RVSP 25 mm hg - cards consulted Possible R PNA ( neg covid and flu) -cont rocephin - sputum cx pending Encephalopathy - CTH neg 08/05 - moves on SAT , will try SBT today - ammonia 35 - to repeat latter Hepatic steatosis on CT - follow ammonia and lft Small nodule in the right middle lobe - smoker - fo follow as per PCP Infrarenal aortic aneurysm almost 5 cm - impending rupture or dissection as per radiology - bedside team reviewed with vascular - contrast study recmmended when Cr better ( not deemed emergent) - not allow high BP Drop in HB - delutional Hematuria - 08/06- inproving off heparing gtt US LE - neg for DVT on 08/06 Elv TGL 390 - try to wean off propofol Lines : R IJ 08/05 , (Central Line Necessity Reviewed) Borrero: 08/05 OG: Nutrition: nop Analgesia: Anxiety/ delirium VTE Prophylaxis: hep gtt- OFF Stress Ulcer Prophylaxis: ppi Plans in collaboration with bedside consultants and IM MDs. Discussed with RN to reach out if any questions or concerns A total of 37 minutes of critical care time was devoted to this patient today, required to treat and/or prevent further deterioration of critical care condition ( as above ) . I am remotely monitoring this patient from another state. I am unable to do the bedside exam, and history/physical and pertinent information is taken from other notes in the computer and bedside staff. Sepsis Event Evaluation Height, Weight, BMI Height: 5'8.00" Weight: 188lbs. 9.0oz. 85.777364sf; 28.31 BMI Method:Stated Focused Exam Lactate Level 08/05/22 21:45: Lactic Acid Level 2.15*H 08/05/22 23:53: Lactic Acid Level 2.45*H 08/06/22 01:03: Lactic Acid Level 1.51 Exam Exam Patient acknowledged, consented, and participated in this virtual visit which was conducted using real time audio/video Vital Signs Date Time Temp Pulse Resp B/P (MAP) Pulse Ox O2 Delivery O2 Flow Rate FiO2 08/07/22 08:00 55 22 96/58 (71) 95 Mechanical Ventilator 25.00 08/07/22 07:49 55 87/50 08/07/22 07:44 36.6 08/07/22 07:33 57 68/47 08/07/22 07:12 64 134/80 08/07/22 07:06 63 21 94 25 08/07/22 07:02 60 169/73 08/07/22 07:00 62 08/07/22 07:00 55 15 98/57 (71) 95 Mechanical Ventilator 25.00 08/07/22 06:54 58 170/110 08/07/22 06:50 58 160/72 08/07/22 06:36 52 105/72 08/07/22 06:31 52 59/40 08/07/22 06:30 52 59/40 08/07/22 06:09 52 85/59 08/07/22 06:00 53 20 92/64 (73) 94 Mechanical Ventilator 25.00 08/07/22 05:50 85/59 08/07/22 05:30 50 82/57 08/07/22 05:30 52 82/57 08/07/22 05:00 62 19 88/56 (67) 94 Mechanical Ventilator 25.00 08/07/22 05:00 80 20 95 08/07/22 05:00 62 88/54 08/07/22 05:00 62 88/54 08/07/22 04:00 69 19 91/58 (69) 93 Mechanical Ventilator 25.00 08/07/22 03:58 95 Mechanical Ventilator 25.00 08/07/22 03:58 37.0 20 Mechanical Ventilator 25.00 08/07/22 03:00 71 20 106/69 (81) 94 Mechanical Ventilator 25.00 08/07/22 02:45 77 21 93 25 08/07/22 02:36 72 147/74 08/07/22 02:36 69 176/93 08/07/22 02:36 73 176/93 08/07/22 02:09 69 112/66 08/07/22 02:00 86 28 147/74 (98) 94 Mechanical Ventilator 25.00 08/07/22 01:13 69 112/66 08/07/22 01:00 67 08/07/22 01:00 65 21 95 Mechanical Ventilator 25.00 08/07/22 00:06 37.2 69 20 112/66 (81) 97 Mechanical Ventilator 25.00 08/06/22 23:47 93 Mechanical Ventilator 25.00 08/06/22 23:00 69 20 117/70 (86) 95 Mechanical Ventilator 25.00 08/06/22 22:48 73 23 95 25 08/06/22 22:00 64 20 118/73 (88) 96 Mechanical Ventilator 25.00 08/06/22 21:13 70 103/63 08/06/22 21:00 69 19 148/78 (101) 95 Mechanical Ventilator 25.00 08/06/22 20:30 70 103/63 08/06/22 20:00 37.5 70 20 103/63 (76) 95 Mechanical Ventilator 25.00 08/06/22 20:00 95 Mechanical Ventilator 25.00 08/06/22 19:06 78 22 93 25 08/06/22 19:00 68 08/06/22 19:00 69 16 112/62 (79) 95 Mechanical Ventilator 25.00 08/06/22 18:00 70 19 99/60 (73) 96 Mechanical Ventilator 25.00 08/06/22 17:00 70 19 100/61 (74) 96 Mechanical Ventilator 25.00 08/06/22 16:47 70 109/59 08/06/22 16:30 70 109/59 08/06/22 16:30 75 119/61 08/06/22 16:08 97 Mechanical Ventilator 25.00 08/06/22 16:00 75 27 119/61 (80) 95 Mechanical Ventilator 25.00 08/06/22 15:35 37.5 08/06/22 15:24 66 116/68 08/06/22 15:00 72 17 115/68 (84) 94 Mechanical Ventilator 25.00 08/06/22 14:42 80 111/62 08/06/22 14:00 68 19 131/67 (88) 96 Mechanical Ventilator 25.00 08/06/22 13:51 68 129/70 08/06/22 13:30 66 20 95 25 08/06/22 13:00 60 21 129/70 (89) 97 Mechanical Ventilator 25.00 08/06/22 13:00 60 08/06/22 12:48 59 103/67 08/06/22 12:41 95 Mechanical Ventilator 25.00 08/06/22 12:00 59 22 103/67 (79) 97 Mechanical Ventilator 25.00 08/06/22 11:40 59 103/67 08/06/22 11:22 36.5 08/06/22 11:17 60 109/70 08/06/22 11:07 60 162/85 08/06/22 11:00 60 21 103/68 (80) 96 Mechanical Ventilator 25.00 08/06/22 10:45 58 74/54 08/06/22 10:00 61 28 95/64 (74) 97 Mechanical Ventilator 25.00 08/06/22 09:55 38 08/06/22 09:30 57 22 99 25 08/06/22 09:09 Mechanical Ventilator 25.00 08/06/22 09:00 58 21 92/65 (74) 97 Mechanical Ventilator 25.00 I & O 08/07/22 07:00 Intake Total 7770 ml Output Total 1100 ml Balance 6670 ml Height & Weight Height: 5'8.00" Weight: 188lbs. 9.0oz. 85.378405tz; 28.31 BMI Method:Stated General Appearance: Chronically ill, Other (sedated and intubated) HEENT: PERRL/EOMI, Other (Very dry oral mucosa) Neck: Normal Inspection Respiratory: Lungs Clear, Normal Breath Sounds Cardiovascular: Regular Rate, Rhythm, Normal Peripheral Pulses (2+ radial), Tachycardia Capillary Refill: Less Than 3 Seconds Extremity: Normal Capillary Refill, Normal Inspection, Normal Range of Motion, No Pedal Edema Neurologic/Psychiatric: Other (Sedated and intubated) Skin: Normal Color, Warm/Dry Results Lab Laboratory Tests 08/05/22 17:59 08/05/22 22:46 08/05/22 23:53 08/06/22 01:03 08/06/22 02:57 08/06/22 04:36 08/06/22 07:55 08/06/22 11:53 08/06/22 15:50 08/06/22 20:07 08/07/22 00:12 08/07/22 03:48 08/07/22 07:30 Assessment/Plan Assessment/Plan 1 FIDEL DRAKE MD Aug 07, 2022 09:00
[2022-08-07] MEDS: fentaNYL INJ 100 MCG/2 ML AMP IVP PRN ×2 (09:57→12:09)
[2022-08-07] MEDS ORDERED: inSUlin (REGULAR) HUMAN 1 UNIT/0.01 ML (CHARGE PER UNIT) IV ONE (10:00)
[2022-08-07] MEDS ORDERED: fentaNYL INJ 100 MCG/2 ML AMP IVP ONE (10:15)
[2022-08-07] MEDS ORDERED: fentaNYL INJ 100 MCG/2 ML AMP ONE (10:17)
[2022-08-07 11:41] VITALS: BP 100/67
[2022-08-07] MEDS: LORazepam INJ 2 MG/ML (ATIVAN) VIAL IVP PRN (12:10)
[2022-08-07] MEDS: LACTULOSE SYRUP 10GM/15ML (ENULOSE) 30ML UDC NG SCH ×2 (12:22→20:53)
[2022-08-07 12:50] LABS: CALCIUM 8.3 MG/DL (8.5-10.1); CREATININE SERUM 1.07 MG/DL (0.60-1.30); POTASSIUM 3.9 MMOL/L (3.6-5.0)
[2022-08-07] MEDS ORDERED: POTASSIUM PHOSPHATE INJ 30 MM in NS (IVPB) 250 ML IV ONE (13:15)
--- NOTE | 2022-08-07 14:18 | Cardiology Progress Note ---
Subjective Date Seen by Provider: Aug 07, 2022 Time Seen by Provider: 14:16 Subjective/Events-last exam Patient was seen at bedside, sedated and intubated. Review of Systems General: Other (Unable to provide review of system) Focused Exam Lactate Level 08/05/22 21:45: Lactic Acid Level 2.15*H 08/05/22 23:53: Lactic Acid Level 2.45*H 08/06/22 01:03: Lactic Acid Level 1.51 Objective-Cardiology Exam Last Set of Vital Signs Vital Signs 08/07/22 08/07/22 08/07/22 08/07/22 11:41 12:14 13:00 13:23 Temp 37.5 Pulse 63 Resp 22 B/P (MAP) 92/60 Pulse Ox 95 O2 Delivery Mechanical Ventilator O2 Flow Rate 40.00 FiO2 40 I&O Intake and Output 08/07/22 00:00 Intake Total 7020 ml Output Total 1630 ml Balance 5390 ml Intake Oral 0 ml IV Total 7020 ml Output Urine Total 1480 ml Gastric Drainage Total 150 ml General: Other (Sedated and intubated) HEENT: Atraumatic Neck: Supple Heart: Normal S1, Normal S2 Abdomen: Normal Bowel Sounds Skin: No Rashes Neuro: Other (Sedated and intubated) Psych/Mental Status: Other (Sedated and intubated) Results Lab Laboratory Tests 08/06/22 15:50 08/06/22 20:07 08/07/22 00:12 08/07/22 03:48 08/07/22 07:30 08/07/22 12:20 A/P-Cardiology Admission Diagnosis Acute respiratory failure Diabetic ketoacidosis Type II myocardial infarction Acute renal failure Assessment/Plan Acute respiratory failure, ventilator dependent, sedated and intubated at this time Managed by medical team Diabetic ketoacidosis, improving, managed by medical team Metabolic encephalopathy, currently sedated. Continue to monitor Electrolyte imbalance, managed by primary care team Acute renal failure, continue on IV fluid and monitor closely Coronary artery disease, history of stent to the LAD in the remote past Cardiac catheterization done by Dr. Cortes in 2018 showing mild to moderate d isease with patent stent nonobstructive disease Has been maintained on aspirin as an outpatient Mild elevation in troponin probably type II myocardial infarction secondary to hypotension and respiratory failure We will switch him to Lovenox for now and monitor tolerance and response Abdominal aortic aneurysm, large, has been followed in the past. Patient has been noncompliant, I visited with his family. Probably will require surgical repair for his aneurysm soon. Discussed the management plan with Dr. Gaming Hypertension, monitor blood pressure Hyperlipidemia, monitor lipids VANESSA SHERWOOD MD Aug 07, 2022 14:18
[2022-08-07 14:52] VITALS: BP 66/50
[2022-08-07] MEDS: ENOXAPARIN 40 MG/0.4 ML (LOVENOX) SYR SQ SCH (15:07)
[2022-08-07 18:38] VITALS: BP 110/76
[2022-08-07] MEDS: cefTRIAXone 1 GM PRE-MIX 50 ML IV SCH (20:52)
[2022-08-07 23:31] VITALS: BP 107/75
[2022-08-08] MEDS: 1/2 NS IV SOLUTION 1,000 ML IV SCH ×3 (00:29→21:04)
[2022-08-08 02:01] VITALS: BP 116/76
[2022-08-08 02:15] LABS: BASOPHILS % (AUTO) 1 % (0-10); EOSINOPHILS # (AUTO) 0.2 10^3/uL (0.0-0.3); EOSINOPHILS % (AUTO) 3 % (0-10); HEMATOCRIT 35 % (40-54); HEMOGLOBIN 11.9 g/dL (13.3-17.7); LYMPHOCYTES % (AUTO) 38 % (12-44); MEAN CORPUSCULAR HEMOGLOBIN 31 pg (25-34); MEAN CORPUSCULAR HGB CONC 34 g/dL (32-36); MEAN CORPUSCULAR VOLUME 91 fL (80-99); MEAN PLATELET VOLUME 11.3 fL (9.0-12.2); MONOCYTES # (AUTO) 0.9 10^3/uL (0.0-1.0); MONOCYTES % (AUTO) 12 % (0-12); NEUTROPHILS # (AUTO) 3.7 10^3/uL (1.8-7.8); NEUTROPHILS % (AUTO) 47 % (42-75); PLATELET COUNT 156 10^3/uL (130-400); WHITE BLOOD COUNT 7.9 10^3/uL (4.3-11.0)
[2022-08-08 02:24] LABS: ALBUMIN 2.7 GM/DL (3.2-4.5); POTASSIUM 3.6 MMOL/L (3.6-5.0)
[2022-08-08 02:25] LABS: CALCIUM 8.7 MG/DL (8.5-10.1)
[2022-08-08 02:27] LABS: TOTAL PROTEIN 4.8 GM/DL (6.4-8.2)
[2022-08-08 02:28] LABS: BILIRUBIN,TOTAL 0.2 MG/DL (0.1-1.0)
[2022-08-08 02:30] LABS: CREATININE SERUM 0.93 MG/DL (0.60-1.30); PHOSPHORUS 4.3 MG/DL (2.3-4.7)
[2022-08-08 02:33] LABS: MAGNESIUM 2.2 MG/DL (1.6-2.4)
[2022-08-08 03:01] LABS: ABG BASE EXCESS -7.8 MMOL/L (-2.5-2.5); ABG OXYGEN SATURATION 98 % (94-100); ABG PCO2 33 MMHG (35-45); ABG PO2 94 MMHG (79-93); ABG TCO2 18.2 MMOL/L (21.0-31.0); ALLENS TEST YES-POS; INSPIRED O2 60%; PATIENT TEMP 36.3; VENTILATOR NO
[2022-08-08 03:04] LABS: ABG PH 7.33 (7.37-7.43)
[2022-08-08] MEDS: POTASSIUM CL 10MEQ/50ML IVPB 50 ML IV SCH ×3 (03:11→03:12)
[2022-08-08] MEDS: KCL 20 MEQ TAB (K-DUR) PO SCH (03:12)
[2022-08-08] MEDS: MAGNESIUM 1 GM/100 ML IVPB 100 ML IV SCH (03:12)
[2022-08-08] MEDS ORDERED: THIAMINE 100 MG/ML 2 ML (VITAMIN B-1) VIAL IV SCH (03:45)
[2022-08-08] MEDS: NOREPINEPHRINE 8 MG/250 ML 250 ML IV SCH ×2 (04:22→18:01)
[2022-08-08] MEDS: PROPOFOL DRIP (ICU) 100 ML IV SCH ×4 (04:25→20:31)
[2022-08-08 05:23] LABS: BILIRUBIN,URINE NEGATIVE (NEGATIVE); CLARITY,URINE CLOUDY; COLOR,URINE YELLOW; GLUCOSE, URINE (UA) NEGATIVE (NEGATIVE); KETONES,URINE NEGATIVE (NEGATIVE); LEUKOCYTE ESTERASE ,URINE TRACE (NEGATIVE); NITRITE,URINE NEGATIVE (NEGATIVE); PROTEIN,URINE 1+ (NEGATIVE)
[2022-08-08 05:34] LABS: BACTERIA,URINE MODERATE /HPF; HYALINE CASTS, URINE 0-2 /LPF; RBC,URINE >100 /HPF
[2022-08-08] MEDS ORDERED: inSUlin ASPART (NovoLOG) 1 UNIT/0.01 ML (CHARGE PER UNIT) SC SCH (06:00)
--- NOTE | 2022-08-08 06:41 | Progress Note - Hospitalist ---
Subjective HPI/CC On Admission Date Seen by Provider: Aug 08, 2022 Time Seen by Provider: 11:00 CC: DKA with respiratory failure HPI: This is a 61yoWM clinic patient of [facility] who presented to the ER with AMS and elevated sugar and was found to have DKA with RFOYLAN and NSTEMI. Patient required intubation to stabilize and currently he remains intubated. Insulin drip initiated along with Dr Marti consultation for NSTEMI. Creatinine did improved overnight with IVF. I updated brother and girlfriend (she is deaf) and informed them of the presence of an infrarenal aneurysm so I spoke to eicu and Dr Marti and they recommended I speak to vascular surgeon and possible transfer so I spoke to Dr Garcia in-depth and he told me this was likely present for l a long time and once kidney function improves a CT scan with IV contrast will be needed in order to prepare for repair after consultation but this was non-emergent. Subjective/Events-last exam Patient still intubated Cannot tolerate weaning Blood sugars variable Changed insulin regimen Reviewed meds and labs Focused Exam Lactate Level 08/05/22 23:53: Lactic Acid Level 2.45*H 08/06/22 01:03: Lactic Acid Level 1.51 08/08/22 09:10: Lactic Acid Level 1.02 Lactic Acid Level Laboratory Tests Test 08/08/22 09:10 Lactic Acid Level 1.02 MMOL/L (0.50-2.00) Objective Exam Vital Signs Vital Signs Date Time Temp Pulse Resp B/P (MAP) Pulse Ox O2 Delivery O2 Flow Rate FiO2 08/08/22 12:29 46 08/08/22 12:00 21 103/69 (80) 98 Mechanical Ventilator 35.00 08/08/22 12:00 36.2 08/08/22 10:27 35 Capillary Refill : Less Than 3 Seconds General Appearance: Other (Sedated and intubated) Respiratory: Lungs Clear, Normal Breath Sounds Cardiovascular: Regular Rate, Rhythm Results/Procedures Lab Laboratory Tests 08/08/22 02:09 08/08/22 09:10 Patient resulted labs reviewed. Assessment/Plan Assessment and Plan Assess & Plan/Chief Complaint Assessment: Multi-system organ failure Acute respiratory failure requiring intubation in ER DKA FROYLAN NSTEMI Infrarenal aneurysm-no need of emergent repair per vascular surgery phone call consult Smoker Plan: ICU Insulin subcutaneous Vent management appreciated IVF Borrero Venous doppler Hep Critical Care Ventilator Management Diagnosis/Problems Diagnosis/Problems (1) DKA (diabetic ketoacidosis) Qualifiers: Diabetes mellitus type: other specified (including GLADYS) Diabetes mellitus complication detail: without coma Qualified Codes: E13.10 - Other specified diabetes mellitus with ketoacidosis without coma (2) Altered mental status Qualifiers: Altered mental status type: unspecified Qualified Codes: R41.82 - Altered mental status, unspecified (3) Non-ST elevated myocardial infarction Status: Acute (4) History of CAD (coronary artery disease) Status: Acute (5) Hypertension Status: Chronic ARUN OLIVEROS DO Aug 08, 2022 06:41
[2022-08-08 07:00] VITALS: BP 117/77
[2022-08-08] MEDS: DOCUSATE SODIUM 100 MG (COLACE) CAP PO SCH ×2 (08:05→20:31)
[2022-08-08] MEDS: SENNOSIDES 8.6 MG (SENOKOT) TAB PO SCH ×2 (08:05→20:30)
[2022-08-08] MEDS: PANTOPRAZOLE 40 MG (PROTONIX) VIAL IV SCH (08:05)
[2022-08-08] MEDS: LACTULOSE SYRUP 10GM/15ML (ENULOSE) 30ML UDC NG SCH ×2 (08:05→20:30)
[2022-08-08] MEDS: ASPIRIN 81 MG CHEW (CHILDREN'S ASA) NG SCH (08:05)
--- NOTE | 2022-08-08 08:31 | Physical Therapy Progress Note ---
Therapy Progress Note Patient currently sedated and intubated. PT will monitor patient's status and initiate treatment when patient is able to actively participate with skilled therapy. YANY CHAVEZ PT Aug 08, 2022 08:31
--- NOTE | 2022-08-08 08:42 | Tele-ICU Progress Note ---
Subjective Date Seen by a Provider: Aug 08, 2022 Subjective/Events-last exam This virtual visit was conducted using real time audio/video. Thank you for asking us to see this patient for critical care needs. Adm with DKA, AMS, FROYLAN, NSTEMI. Intubated for airway protection. Also 5 cm AAA. PE: VSS. Sedated on vent. O2 sat 98% on AC 16/500/35%/+5. HEENT: No obvious masses, adenopathy or JVD. Chest: clear to auscultation. CV: RRR S1 S2 No murmur or added sounds. Abd: Non-tender. Bowel sounds Y. : Unremarkable. Borrero Y. DIRECTOR FINANCIAL ANALYSIS/psychiatric: Grossly intact. No obvious focal findings. Extremities: 1+ edema. Capillary refill < 3 seconds. Skin: unremarkable. Results: Elevated Ammonia 43, BG 217. Decreased Hb 11.9. AB.33.33.94 on 60%. CXR: possible RLL infilt.. Available chart/ vitals / labs / images reviewed. Video assessment done using teleICU camera, rest of exam as per RN. A/P: Respiratory insufficiency: Continue present management with vent., duonebs, Prop., Prec. Hold on SBT until secretions, FiO2 decreased and off pressors Critical Care: critically ill patient. Cont. abx, Levo., ASA, Lact., SSI, Lovenox. D/C D5%. To have repeat CT abd. Discussed with HOSSEIN Varma. Asked RN to reach out to eICU if any questions or concerns later. Time spent with patient/coordination of care with other health professionals (mins): Sepsis Event Evaluation Height, Weight, BMI Height: 5'8.00" Weight: 188lbs. 9.0oz. 85.136325pa; 28.68 BMI Method:Stated Focused Exam Lactate Level 08/05/22 21:45: Lactic Acid Level 2.15*H 08/05/22 23:53: Lactic Acid Level 2.45*H 08/06/22 01:03: Lactic Acid Level 1.51 Exam Exam Patient acknowledged, consented, and participated in this virtual visit which was conducted using real time audio/video Vital Signs Date Time Temp Pulse Resp B/P (MAP) Pulse Ox O2 Delivery O2 Flow Rate FiO2 08/08/22 08:00 45 16 131/84 (99) 99 Mechanical Ventilator 35.00 08/08/22 07:38 36.8 08/08/22 07:00 47 18 99 35 08/08/22 07:00 46 08/08/22 07:00 46 14 117/77 (91) 99 Mechanical Ventilator 35.00 08/08/22 06:00 47 16 111/76 (88) 99 Mechanical Ventilator 35.00 08/08/22 05:00 56 16 124/79 (94) 100 Mechanical Ventilator 35.00 08/08/22 04:55 56 16 100 08/08/22 04:54 46 133/86 08/08/22 04:48 48 149/81 08/08/22 04:25 44 110/79 08/08/22 04:22 44 110/79 08/08/22 04:15 45 16 126/88 (101) 100 Mechanical Ventilator 35.00 08/08/22 04:00 36.6 Mechanical Ventilator 35.00 08/08/22 04:00 100 Mechanical Ventilator 35.00 08/08/22 03:26 44 110/79 08/08/22 03:00 44 16 116/76 (89) 99 Mechanical Ventilator 35.00 08/08/22 02:45 44 110/79 08/08/22 02:01 44 16 99 35 08/08/22 02:00 44 16 116/76 (89) 99 Mechanical Ventilator 35.00 08/08/22 01:00 45 08/08/22 01:00 45 16 113/79 (90) 98 Mechanical Ventilator 35.00 08/08/22 00:00 45 16 112/78 (89) 98 Mechanical Ventilator 35.00 08/08/22 00:00 36.3 16 95 Mechanical Ventilator 35.00 08/08/22 00:00 98 Mechanical Ventilator 35.00 08/07/22 23:31 48 19 95 35 08/07/22 23:26 45 111/76 08/07/22 23:19 45 111/76 08/07/22 23:00 45 16 111/76 (88) 98 Mechanical Ventilator 35.00 08/07/22 22:00 46 16 119/85 (96) 98 Mechanical Ventilator 35.00 08/07/22 21:00 47 16 107/74 (85) 98 Mechanical Ventilator 35.00 08/07/22 20:00 47 16 115/75 (88) 98 Mechanical Ventilator 35.00 08/07/22 20:00 98 Mechanical Ventilator 35.00 08/07/22 20:00 36.5 08/07/22 19:19 49 110/76 08/07/22 19:08 49 110/76 08/07/22 19:00 50 08/07/22 19:00 50 16 107/75 (86) 98 Mechanical Ventilator 35.00 08/07/22 18:38 49 17 98 35 08/07/22 18:00 50 14 103/69 (80) 98 Mechanical Ventilator 40.00 08/07/22 17:00 52 14 109/71 (84) 98 Mechanical Ventilator 40.00 08/07/22 16:42 97 Mechanical Ventilator 40.00 08/07/22 16:35 36.9 08/07/22 16:09 54 114/81 08/07/22 16:00 54 14 114/81 (92) 97 Mechanical Ventilator 40.00 08/07/22 15:08 55 100/69 08/07/22 15:00 56 17 100/69 (79) 96 Mechanical Ventilator 40.00 08/07/22 14:52 55 19 96 40 08/07/22 14:45 57 66/50 08/07/22 14:25 57 77/57 08/07/22 14:19 52 63/45 08/07/22 14:00 57 16 90/58 (68) 98 Mechanical Ventilator 40.00 08/07/22 13:23 63 92/60 08/07/22 13:00 66 22 92/58 (71) 95 Mechanical Ventilator 40.00 08/07/22 12:42 84 08/07/22 12:38 62 115/65 08/07/22 12:14 37.5 08/07/22 12:07 84 145/80 08/07/22 12:00 93 Mechanical Ventilator 40.00 08/07/22 12:00 86 22 145/80 (101) 95 Mechanical Ventilator 40.00 08/07/22 11:45 84 145/80 08/07/22 11:45 84 145/80 08/07/22 11:41 68 21 95 40 08/07/22 11:00 61 12 112/66 (81) 95 Mechanical Ventilator 40.00 08/07/22 10:50 89 145/69 08/07/22 10:09 89 145/69 1/27/23 10:01 86 172/106 08/07/22 10:00 Mechanical Ventilator 40.00 08/07/22 10:00 94 22 145/69 (94) 93 Mechanical Ventilator 25.00 08/07/22 09:45 87 152/84 08/07/22 09:45 87 152/84 08/07/22 09:40 151/80 08/07/22 09:27 25 08/07/22 09:00 53 19 108/62 (77) 96 Mechanical Ventilator 25.00 08/07/22 08:54 55 108/54 I & O 08/08/22 07:00 Intake Total 6114 ml Output Total 2400 ml Balance 3714 ml Height & Weight Height: 5'8.00" Weight: 188lbs. 9.0oz. 85.950970bv; 28.68 BMI Method:Stated General Appearance: No Apparent Distress, WD/WN, Chronically ill, Other (sedated and intubated) HEENT: PERRL/EOMI, Other (Very dry oral mucosa) Neck: Normal Inspection Respiratory: Lungs Clear Cardiovascular: Regular Rate, Rhythm Capillary Refill: Less Than 3 Seconds Extremity: Normal Capillary Refill, Normal Inspection, Normal Range of Motion, No Pedal Edema Neurologic/Psychiatric: Other (Sedated and intubated) Skin: Normal Color, Warm/Dry Results Lab Laboratory Tests 08/06/22 11:53 08/06/22 15:50 08/06/22 20:07 08/07/22 00:12 08/07/22 03:48 08/07/22 07:30 08/07/22 12:20 08/08/22 02:09 Assessment/Plan Assessment/Plan See free text. Critical Care: Ventilator Management VAHE BACA MD Aug 08, 2022 08:42
--- NOTE | 2022-08-08 08:53 | Tele-ICU Progress Note ---
Subjective Date Seen by a Provider: Aug 08, 2022 Subjective/Events-last exam Addendum to earlier note: Critical Care time 15 minutes Sepsis Event Evaluation Height, Weight, BMI Height: 5'8.00" Weight: 188lbs. 9.0oz. 85.915612jw; 28.68 BMI Method:Stated Focused Exam Lactate Level 08/05/22 21:45: Lactic Acid Level 2.15*H 08/05/22 23:53: Lactic Acid Level 2.45*H 08/06/22 01:03: Lactic Acid Level 1.51 Exam Exam Patient acknowledged, consented, and participated in this virtual visit which was conducted using real time audio/video Vital Signs Date Time Temp Pulse Resp B/P (MAP) Pulse Ox O2 Delivery O2 Flow Rate FiO2 08/08/22 08:00 45 16 131/84 (99) 99 Mechanical Ventilator 35.00 08/08/22 07:38 36.8 08/08/22 07:00 47 18 99 35 08/08/22 07:00 46 08/08/22 07:00 46 14 117/77 (91) 99 Mechanical Ventilator 35.00 08/08/22 06:00 47 16 111/76 (88) 99 Mechanical Ventilator 35.00 08/08/22 05:00 56 16 124/79 (94) 100 Mechanical Ventilator 35.00 08/08/22 04:55 56 16 100 08/08/22 04:54 46 133/86 08/08/22 04:48 48 149/81 08/08/22 04:25 44 110/79 08/08/22 04:22 44 110/79 08/08/22 04:15 45 16 126/88 (101) 100 Mechanical Ventilator 35.00 08/08/22 04:00 36.6 Mechanical Ventilator 35.00 08/08/22 04:00 100 Mechanical Ventilator 35.00 08/08/22 03:26 44 110/79 08/08/22 03:00 44 16 116/76 (89) 99 Mechanical Ventilator 35.00 08/08/22 02:45 44 110/79 08/08/22 02:01 44 16 99 35 08/08/22 02:00 44 16 116/76 (89) 99 Mechanical Ventilator 35.00 08/08/22 01:00 45 08/08/22 01:00 45 16 113/79 (90) 98 Mechanical Ventilator 35.00 08/08/22 00:00 45 16 112/78 (89) 98 Mechanical Ventilator 35.00 08/08/22 00:00 36.3 16 95 Mechanical Ventilator 35.00 08/08/22 00:00 98 Mechanical Ventilator 35.00 08/07/22 23:31 48 19 95 35 08/07/22 23:26 45 111/76 08/07/22 23:19 45 111/76 08/07/22 23:00 45 16 111/76 (88) 98 Mechanical Ventilator 35.00 08/07/22 22:00 46 16 119/85 (96) 98 Mechanical Ventilator 35.00 08/07/22 21:00 47 16 107/74 (85) 98 Mechanical Ventilator 35.00 08/07/22 20:00 47 16 115/75 (88) 98 Mechanical Ventilator 35.00 08/07/22 20:00 98 Mechanical Ventilator 35.00 08/07/22 20:00 36.5 08/07/22 19:19 49 110/76 08/07/22 19:08 49 110/76 08/07/22 19:00 50 08/07/22 19:00 50 16 107/75 (86) 98 Mechanical Ventilator 35.00 08/07/22 18:38 49 17 98 35 08/07/22 18:00 50 14 103/69 (80) 98 Mechanical Ventilator 40.00 08/07/22 17:00 52 14 109/71 (84) 98 Mechanical Ventilator 40.00 08/07/22 16:42 97 Mechanical Ventilator 40.00 08/07/22 16:35 36.9 08/07/22 16:09 54 114/81 08/07/22 16:00 54 14 114/81 (92) 97 Mechanical Ventilator 40.00 08/07/22 15:08 55 100/69 08/07/22 15:00 56 17 100/69 (79) 96 Mechanical Ventilator 40.00 08/07/22 14:52 55 19 96 40 08/07/22 14:45 57 66/50 08/07/22 14:25 57 77/57 08/07/22 14:19 52 63/45 08/07/22 14:00 57 16 90/58 (68) 98 Mechanical Ventilator 40.00 08/07/22 13:23 63 92/60 08/07/22 13:00 66 22 92/58 (71) 95 Mechanical Ventilator 40.00 08/07/22 12:42 84 08/07/22 12:38 62 115/65 08/07/22 12:14 37.5 08/07/22 12:07 84 145/80 08/07/22 12:00 93 Mechanical Ventilator 40.00 08/07/22 12:00 86 22 145/80 (101) 95 Mechanical Ventilator 40.00 08/07/22 11:45 84 145/80 08/07/22 11:45 84 145/80 08/07/22 11:41 68 21 95 40 08/07/22 11:00 61 12 112/66 (81) 95 Mechanical Ventilator 40.00 08/07/22 10:50 89 145/69 08/07/22 10:09 89 145/69 08/07/22 10:01 86 172/106 08/07/22 10:00 Mechanical Ventilator 40.00 08/07/22 10:00 94 22 145/69 (94) 93 Mechanical Ventilator 25.00 08/07/22 09:45 87 152/84 08/07/22 09:45 87 152/84 08/07/22 09:40 151/80 08/07/22 09:27 25 08/07/22 09:00 53 19 108/62 (77) 96 Mechanical Ventilator 25.00 08/07/22 08:54 55 108/54 I & O 08/08/22 07:00 Intake Total 6114 ml Output Total 2400 ml Balance 3714 ml Height & Weight Height: 5'8.00" Weight: 188lbs. 9.0oz. 85.345504fa; 28.68 BMI Method:Stated General Appearance: No Apparent Distress, WD/WN, Chronically ill, Other (sedated and intubated) HEENT: PERRL/EOMI, Other (Very dry oral mucosa) Neck: Normal Inspection Respiratory: Lungs Clear Cardiovascular: Regular Rate, Rhythm Capillary Refill: Less Than 3 Seconds Extremity: Normal Capillary Refill, Normal Inspection, Normal Range of Motion, No Pedal Edema Neurologic/Psychiatric: Other (Sedated and intubated) Skin: Normal Color, Warm/Dry Results Lab Laboratory Tests 08/06/22 11:53 08/06/22 15:50 08/06/22 20:07 08/07/22 00:12 08/07/22 03:48 08/07/22 07:30 08/07/22 12:20 08/08/22 02:09 Assessment/Plan Assessment/Plan See free text Critical Care: Critically Ill Patient VAHE BACA MD Aug 08, 2022 08:53
[2022-08-08 09:31] LABS: POTASSIUM 4.9 MMOL/L (3.6-5.0)
[2022-08-08 09:33] LABS: CALCIUM 8.5 MG/DL (8.5-10.1)
[2022-08-08 09:37] LABS: CREATININE SERUM 1.07 MG/DL (0.60-1.30)
--- NOTE | 2022-08-08 09:48 | Cardiology Progress Note ---
Subjective Date Seen by Provider: Aug 08, 2022 Time Seen by Provider: 09:47 Subjective/Events-last exam Patient was seen at bedside, sedated and intubated Review of Systems General: Other (Unable to provide review of system) Focused Exam Lactate Level 08/05/22 23:53: Lactic Acid Level 2.45*H 08/06/22 01:03: Lactic Acid Level 1.51 08/08/22 09:10: Lactic Acid Level 1.02 Lactic Acid Level Laboratory Tests Test 08/08/22 09:10 Lactic Acid Level 1.02 MMOL/L (0.50-2.00) Objective-Cardiology Exam Last Set of Vital Signs Vital Signs 08/08/22 08/08/22 08/08/22 07:00 07:38 09:00 Temp 36.8 Pulse 44 Resp 6 B/P (MAP) 119/78 (92) Pulse Ox 98 O2 Delivery Mechanical Ventilator O2 Flow Rate 35.00 FiO2 35 I&O Intake and Output 08/08/22 00:00 Intake Total 7184 ml Output Total 2200 ml Balance 4984 ml Intake Oral 0 ml IV Total 6510 ml Tube Feeding 464 ml Other 210 ml Output Urine Total 2200 ml Gastric Drainage Total 0 ml General: Other (Sedated and intubated) HEENT: Atraumatic Neck: Supple Heart: Regular Rate, Normal S1, Normal S2 Abdomen: Normal Bowel Sounds Skin: No Rashes Neuro: Other (Sedated and intubated) Psych/Mental Status: Other (Sedated and intubated) Results Lab Laboratory Tests 08/07/22 12:20 08/08/22 02:09 08/08/22 09:10 A/P-Cardiology Admission Diagnosis Acute respiratory failure Diabetic ketoacidosis Type II myocardial infarction Acute renal failure Assessment/Plan Acute respiratory failure, ventilator dependent, sedated and intubated at this time Managed by medical team Sinus bradycardia, probably secondary to medication and sedation Blood pressure is stable, continue to monitor Diabetic ketoacidosis, improving, managed by medical team Metabolic encephalopathy, currently sedated. Continue to monitor Electrolyte imbalance, managed by primary care team Acute renal failure, continue on IV fluid and monitor closely Coronary artery disease, history of stent to the LAD in the remote past Cardiac catheterization done by Dr. Cortes in 2018 showing mild to moderate dis ease with patent stent nonobstructive disease Has been maintained on aspirin as an outpatient Mild elevation in troponin probably type II myocardial infarction secondary to hypotension and respiratory failure Maintained on Lovenox 40 mg twice daily. Abdominal aortic aneurysm, large, has been followed in the past. Patient has been noncompliant, I visited with his family. Probably will require surgical repair for his aneurysm soon. Discussed the management plan with Dr. Gaming Hypertension, monitor blood pressure Hyperlipidemia, monitor lipids VANESSA SHERWOOD MD Aug 08, 2022 09:48
[2022-08-08 10:27] VITALS: BP 110/75
[2022-08-08] MEDS ORDERED: inSUlin (REGULAR) HUMAN 1 UNIT/0.01 ML (CHARGE PER UNIT) SC PRN (11:15)
[2022-08-08] MEDS: LORazepam INJ 2 MG/ML (ATIVAN) VIAL IVP PRN ×2 (13:42→19:30)
[2022-08-08] MEDS: ENOXAPARIN 40 MG/0.4 ML (LOVENOX) SYR SQ SCH (14:23)
[2022-08-08 15:08] VITALS: BP 116/73
[2022-08-08] MEDS: inSUlin ASPART (NovoLOG) 1 UNIT/0.01 ML (CHARGE PER UNIT) SC SCH ×2 (15:46→20:43)
[2022-08-08 19:21] VITALS: BP 116/73
[2022-08-08] MEDS: cefTRIAXone 1 GM PRE-MIX 50 ML IV SCH (20:32)
[2022-08-08 22:19] VITALS: BP 131/79
[2022-08-08] MEDS: fentaNYL DRIP PRE-MIX 250 ML IV SCH (22:32)
[2022-08-09] MEDS: PROPOFOL DRIP (ICU) 100 ML IV SCH ×2 (00:08→03:59)
[2022-08-09 02:52] VITALS: BP 131/79
[2022-08-09 03:43] LABS: ABG OXYGEN SATURATION 88 % (94-100); ABG PCO2 44 MMHG (35-45); ABG PO2 54 MMHG (79-93); ABG TCO2 22.7 MMOL/L (21.0-31.0)
[2022-08-09 03:44] LABS: ALLENS TEST YES-POS; INSPIRED O2 60%; PATIENT TEMP 36.9; VENTILATOR NO
[2022-08-09 03:45] LABS: BASOPHILS % (AUTO) 0 % (0-10); MEAN CORPUSCULAR HEMOGLOBIN 31 pg (25-34)
[2022-08-09 03:47] LABS: EOSINOPHILS # (AUTO) 0.2 10^3/uL (0.0-0.3); EOSINOPHILS % (AUTO) 3 % (0-10); HEMATOCRIT 34 % (40-54); HEMOGLOBIN 11.2 g/dL (13.3-17.7); LYMPHOCYTES # (AUTO) 1.7 10^3/uL (1.0-4.0); LYMPHOCYTES % (AUTO) 33 % (12-44); MEAN CORPUSCULAR HGB CONC 33 g/dL (32-36); MEAN CORPUSCULAR VOLUME 93 fL (80-99); MEAN PLATELET VOLUME 12.7 fL (9.0-12.2); MONOCYTES # (AUTO) 0.6 10^3/uL (0.0-1.0); MONOCYTES % (AUTO) 11 % (0-12); NEUTROPHILS # (AUTO) 2.8 10^3/uL (1.8-7.8); NEUTROPHILS % (AUTO) 52 % (42-75); PLATELET COUNT 119 10^3/uL (130-400); WHITE BLOOD COUNT 5.4 10^3/uL (4.3-11.0)
[2022-08-09 03:56] LABS: POTASSIUM 4.8 MMOL/L (3.6-5.0)
[2022-08-09 03:57] LABS: ALBUMIN 2.6 GM/DL (3.2-4.5)
[2022-08-09 03:58] LABS: CALCIUM 8.8 MG/DL (8.5-10.1)
[2022-08-09 03:59] LABS: TOTAL PROTEIN 4.9 GM/DL (6.4-8.2)
[2022-08-09] MEDS: KCL 20 MEQ TAB (K-DUR) PO SCH (04:00)
[2022-08-09] MEDS: POTASSIUM CL 10MEQ/50ML IVPB 50 ML IV SCH (04:00)
[2022-08-09 04:01] LABS: BILIRUBIN,TOTAL 0.2 MG/DL (0.1-1.0)
[2022-08-09] MEDS: inSUlin ASPART (NovoLOG) 1 UNIT/0.01 ML (CHARGE PER UNIT) SC SCH ×4 (04:01→20:15)
[2022-08-09 04:03] LABS: CREATININE SERUM 1.17 MG/DL (0.60-1.30)
[2022-08-09 04:06] LABS: MAGNESIUM 2.3 MG/DL (1.6-2.4)
[2022-08-09] MEDS: MAGNESIUM 1 GM/100 ML IVPB 100 ML IV SCH (04:25)
[2022-08-09 06:30] VITALS: BP 96/63
--- NOTE | 2022-08-09 07:25 | Tele-ICU Progress Note ---
Progress Note Video rounds completed 61 y/o male evens DKA, AMS, FROYLAN, NSTEMI. Intubated for airway protection. Also 5 cm infrarenal AAA. PE: VSS. Sedated on vent. A/P: Respiratory insufficiency: Continue present management with vent., duonebs, Prop., Prec. Hold on SBT until secretions, FiO2 decreased and off pressors Critical Care: critically ill patient. Cont. abx, Levo., ASA, Lact., SSI, Lovenox. D/C D5%. To have repeat CT abd. Height, Weight, BMI Height: 5'8.00" Weight: 188lbs. 9.0oz. 85.811907ps; 28.68 BMI Method:Stated Focused Exam Lactate Level 08/05/22 21:45: Lactic Acid Level 2.15*H 08/05/22 23:53: Lactic Acid Level 2.45*H 08/06/22 01:03: Lactic Acid Level 1.51 Exam Exam Patient acknowledged, consented, and participated in this virtual visit which was conducted using real time audio/video Vital Signs Date Time Temp Pulse Resp B/P (MAP) Pulse Ox O2 Delivery O2 Flow Rate FiO2 08/08/22 08:00 45 16 131/84 (99) 99 Mechanical Ventilator 35.00 08/08/22 07:38 36.8 08/08/22 07:00 47 18 99 35 08/08/22 07:00 46 08/08/22 07:00 46 14 117/77 (91) 99 Mechanical Ventilator 35.00 08/08/22 06:00 47 16 111/76 (88) 99 Mechanical Ventilator 35.00 08/08/22 05:00 56 16 124/79 (94) 100 Mechanical Ventilator 35.00 08/08/22 04:55 56 16 100 08/08/22 04:54 46 133/86 08/08/22 04:48 48 149/81 08/08/22 04:25 44 110/79 08/08/22 04:22 44 110/79 08/08/22 04:15 45 16 126/88 (101) 100 Mechanical Ventilator 35.00 08/08/22 04:00 36.6 Mechanical Ventilator 35.00 08/08/22 04:00 100 Mechanical Ventilator 35.00 08/08/22 03:26 44 110/79 08/08/22 03:00 44 16 116/76 (89) 99 Mechanical Ventilator 35.00 08/08/22 02:45 44 110/79 08/08/22 02:01 44 16 99 35 08/08/22 02:00 44 16 116/76 (89) 99 Mechanical Ventilator 35.00 08/08/22 01:00 45 08/08/22 01:00 45 16 113/79 (90) 98 Mechanical Ventilator 35.00 08/08/22 00:00 45 16 112/78 (89) 98 Mechanical Ventilator 35.00 08/08/22 00:00 36.3 16 95 Mechanical Ventilator 35.00 08/08/22 00:00 98 Mechanical Ventilator 35.00 08/07/22 23:31 48 19 95 35 08/07/22 23:26 45 111/76 08/07/22 23:19 45 111/76 08/07/22 23:00 45 16 111/76 (88) 98 Mechanical Ventilator 35.00 08/07/22 22:00 46 16 119/85 (96) 98 Mechanical Ventilator 35.00 08/07/22 21:00 47 16 107/74 (85) 98 Mechanical Ventilator 35.00 08/07/22 20:00 47 16 115/75 (88) 98 Mechanical Ventilator 35.00 08/07/22 20:00 98 Mechanical Ventilator 35.00 08/07/22 20:00 36.5 08/07/22 19:19 49 110/76 08/07/22 19:08 49 110/76 08/07/22 19:00 50 08/07/22 19:00 50 16 107/75 (86) 98 Mechanical Ventilator 35.00 08/07/22 18:38 49 17 98 35 08/07/22 18:00 50 14 103/69 (80) 98 Mechanical Ventilator 40.00 08/07/22 17:00 52 14 109/71 (84) 98 Mechanical Ventilator 40.00 08/07/22 16:42 97 Mechanical Ventilator 40.00 08/07/22 16:35 36.9 08/07/22 16:09 54 114/81 08/07/22 16:00 54 14 114/81 (92) 97 Mechanical Ventilator 40.00 08/07/22 15:08 55 100/69 08/07/22 15:00 56 17 100/69 (79) 96 Mechanical Ventilator 40.00 08/07/22 14:52 55 19 96 40 08/07/22 14:45 57 66/50 08/07/22 14:25 57 77/57 08/07/22 14:19 52 63/45 08/07/22 14:00 57 16 90/58 (68) 98 Mechanical Ventilator 40.00 08/07/22 13:23 63 92/60 08/07/22 13:00 66 22 92/58 (71) 95 Mechanical Ventilator 40.00 08/07/22 12:42 84 08/07/22 12:38 62 115/65 08/07/22 12:14 37.5 08/07/22 12:07 84 145/80 08/07/22 12:00 93 Mechanical Ventilator 40.00 08/07/22 12:00 86 22 145/80 (101) 95 Mechanical Ventilator 40.00 08/07/22 11:45 84 145/80 08/07/22 11:45 84 145/80 08/07/22 11:41 68 21 95 40 08/07/22 11:00 61 12 112/66 (81) 95 Mechanical Ventilator 40.00 08/07/22 10:50 89 145/69 08/07/22 10:09 89 145/69 08/07/22 10:01 86 172/106 08/07/22 10:00 Mechanical Ventilator 40.00 08/07/22 10:00 94 22 145/69 (94) 93 Mechanical Ventilator 25.00 08/07/22 09:45 87 152/84 08/07/22 09:45 87 152/84 08/07/22 09:40 151/80 08/07/22 09:27 25 08/07/22 09:00 53 19 108/62 (77) 96 Mechanical Ventilator 25.00 08/07/22 08:54 55 108/54 I & O 08/08/22 07:00 Intake Total 6114 ml Output Total 2400 ml Balance 3714 ml Height & Weight Height: 5'8.00" Weight: 188lbs. 9.0oz. 85.115497vs; 28.68 BMI Method:Stated General Appearance: No Apparent Distress, WD/WN, Chronically ill, Other (sedated and intubated) HEENT: PERRL/EOMI, Other (Very dry oral mucosa) Neck: Normal Inspection Respiratory: Lungs Clear Cardiovascular: Regular Rate, Rhythm Capillary Refill: Less Than 3 Seconds Extremity: Normal Capillary Refill, Normal Inspection, Normal Range of Motion, No Pedal Edema Neurologic/Psychiatric: Other (Sedated and intubated) Skin: Normal Color, Warm/Dry Results Lab Laboratory Tests 08/06/22 11:53 08/06/22 15:50 IMP: resp failure, intubated DM, BS this am 345, still need better control Creatinine 1.17, trending up slightly PLAN: wean as feasible from vent increase insulin coverage Vascular and cardiology following Time spent reviwing 20 minutes Focused Exam Lactate Level 08/08/22 09:10: Lactic Acid Level 1.02 Height, Weight, BMI Height: 5'8.00" Weight: 188lbs. 9.0oz. 85.055917rp; 28.68 BMI Method:Stated Labs Laboratory Tests 08/08/22 09:10 08/09/22 03:30 Results Results/Procedures Labs Laboratory Tests 08/07/22 07:30 08/07/22 12:20 08/08/22 02:09 08/08/22 09:10 08/09/22 03:30 Patient resulted labs reviewed. Results Labs Labs Laboratory Tests 08/08/22 08:10: Glucometer 290H 08/08/22 09:10: Sodium Level 139, Potassium Level 4.9, Chloride Level 115H, Carbon Dioxide Level 16L, Anion Gap 8, Blood Urea Nitrogen 14, Creatinine 1.07, Estimat Glomerular Filtration Rate 78, BUN/Creatinine Ratio 13, Glucose Level 397H, Lactic Acid Level 1.02, Calcium Level 8.5 08/08/22 11:26: Glucometer 357H 08/08/22 15:37: Glucometer 360H 08/08/22 20:37: Glucometer 298H 08/09/22 00:26: Glucometer 279H 08/09/22 03:30: White Blood Count 5.4, Red Blood Count 3.67L, Hemoglobin 11.2L, Hematocrit 34L, Mean Corpuscular Volume 93, Mean Corpuscular Hemoglobin 31, Mean Corpuscular Hemoglobin Concent 33, Red Cell Distribution Width 14.2, Platelet Count 119L, Mean Platelet Volume 12.7H, Immature Granulocyte % (Auto) 1, Neutrophils (%) (Auto) 52, Lymphocytes (%) (Auto) 33, Monocytes (%) (Auto) 11, Eosinophils (%) (Auto) 3, Basophils (%) (Auto) 0, Neutrophils # (Auto) 2.8, Lymphocytes # (Auto) 1.7, Monocytes # (Auto) 0.6, Eosinophils # (Auto) 0.2, Basophils # (Auto) 0.0, Immature Granulocyte # (Auto) 0.1, Percent Immature Platelet Fraction 10.1H, Blood Gas Puncture Site R RADIAL, Blood Gas Patient Temperature 36.9, Arterial Blood pH 7.30*L, Arterial Blood Partial Pressure CO2 44, Arterial Blood Partial Pressure O2 54L, Arterial Blood HCO3 21L, Arterial Blood Total CO2 22.7, Arterial Blood Oxygen Saturation 88L, Arterial Blood Base Excess -4.0L, Ashish Test YES-POS, Blood Gas Ventilator Setting NO, Blood Gas Inspired Oxygen 60%, Sodium Level 146H, Potassium Level 4.8, Chloride Level 117H, Carbon Dioxide Level 18L, Anion Gap 11, Blood Urea Nitrogen 18, Creatinine 1.17, Estimat Glomerular Filtration Rate 70, BUN/Creatinine Ratio 15, Glucose Level 345H, Calcium Level 8.8, Corrected Calcium 9.9, Phosphorus Level 4.0, Magnesium Level 2.3, Total Bilirubin 0.2, Aspartate Amino Transf (AST/SGOT) 31, Alanine Aminotransferase (ALT/SGPT) 35, Alkaline Phosphatase 88, Total Protein 4.9L, Albumin 2.6L, Triglycerides Level 442#H Microbiology 08/06/22 Gram Stain - Final, Complete 08/06/22 Sputum Culture - Final, Complete YEAST 08/06/22 Blood Culture - Preliminary, Resulted No growth MARLYN CASPER MD Aug 09, 2022 07:25
[2022-08-09] MEDS: 1/2 NS IV SOLUTION 1,000 ML IV SCH ×2 (07:26→17:46)
--- NOTE | 2022-08-09 08:01 | Progress Note - Hospitalist ---
Subjective HPI/CC On Admission Date Seen by Provider: Aug 09, 2022 Time Seen by Provider: 11:00 CC: DKA with respiratory failure HPI: This is a 61yoWM clinic patient of [facility] who presented to the ER with AMS and elevated sugar and was found to have DKA with FROYLAN and NSTEMI. Patient required intubation to stabilize and currently he remains intubated. Insulin drip initiated along with Dr Marti consultation for NSTEMI. Creatinine did improved overnight with IVF. I updated brother and girlfriend (she is deaf) and informed them of the presence of an infrarenal aneurysm so I spoke to eicu and Dr Marti and they recommended I speak to vascular surgeon and possible transfer so I spoke to Dr Garcia in-depth and he told me this was likely present for l a long time and once kidney function improves a CT scan with IV contrast will be needed in order to prepare for repair after consultation but this was non-emergent. Subjective/Events-last exam Patient still intubated Bicarb noted Having difficulty weaning due to severe COPD Focused Exam Lactate Level 08/08/22 09:10: Lactic Acid Level 1.02 Objective Exam Vital Signs Vital Signs Date Time Temp Pulse Resp B/P (MAP) Pulse Ox O2 Delivery O2 Flow Rate FiO2 08/09/22 12:00 70 11 120/69 (85) 96 Mechanical Ventilator 35.00 08/09/22 10:00 50 08/09/22 08:13 36.9 Capillary Refill : Less Than 3 Seconds General Appearance: Chronically ill, Other (Sedated and intubated) Respiratory: Lungs Clear, Normal Breath Sounds Results/Procedures Lab Laboratory Tests 08/09/22 03:30 Patient resulted labs reviewed. Assessment/Plan Assessment and Plan Assess & Plan/Chief Complaint Assessment: Multi-system organ failure Acute respiratory failure requiring intubation in ER DKA FROYLAN NSTEMI Infrarenal aneurysm-no need of emergent repair per vascular surgery phone call consult Smoker Plan: ICU Insulin subcutaneous Vent management appreciated IVF [place]re[place] Venous doppler Hep Critical Care Critically Ill Patient Diagnosis/Problems Diagnosis/Problems (1) DKA (diabetic ketoacidosis) Qualifiers: Diabetes mellitus type: other specified (including GLADYS) Diabetes mellitus complication detail: without coma Qualified Codes: E13.10 - Other specified diabetes mellitus with ketoacidosis without coma (2) Altered mental status Qualifiers: Altered mental status type: unspecified Qualified Codes: R41.82 - Altered mental status, unspecified (3) Non-ST elevated myocardial infarction Status: Acute (4) History of CAD (coronary artery disease) Status: Acute (5) Hypertension Status: Chronic ARUN OLIVEROS DO Aug 09, 2022 08:01
[2022-08-09] MEDS: SENNOSIDES 8.6 MG (SENOKOT) TAB PO SCH ×2 (08:52→20:14)
[2022-08-09] MEDS: DOCUSATE SODIUM 100 MG (COLACE) CAP PO SCH ×2 (08:52→20:14)
[2022-08-09] MEDS: ASPIRIN 81 MG CHEW (CHILDREN'S ASA) NG SCH (08:52)
[2022-08-09] MEDS: PANTOPRAZOLE 40 MG (PROTONIX) VIAL IV SCH (08:52)
[2022-08-09] MEDS: LACTULOSE SYRUP 10GM/15ML (ENULOSE) 30ML UDC NG SCH ×2 (08:52→20:14)
[2022-08-09] MEDS: NOREPINEPHRINE 8 MG/250 ML 250 ML IV SCH (09:32)
--- NOTE | 2022-08-09 09:36 | Cardiology Progress Note ---
Subjective Date Seen by Provider: Aug 09, 2022 Time Seen by Provider: 09:35 Subjective/Events-last exam Patient is sedated and intubated Review of Systems General: Other (Unable to provide review of system) Focused Exam Lactate Level 08/08/22 09:10: Lactic Acid Level 1.02 Objective-Cardiology Exam Last Set of Vital Signs Vital Signs 08/09/22 08/09/22 08/09/22 06:30 08:13 09:00 Temp 36.9 Pulse 64 Resp 15 B/P (MAP) 96/60 (73) Pulse Ox 93 O2 Delivery Mechanical Ventilator O2 Flow Rate 35.00 FiO2 35 I&O Intake and Output 08/09/22 00:00 Intake Total 2305 ml Output Total 2575 ml Balance -270 ml IV Total 900 ml Tube Feeding 1135 ml Other 270 ml Output Urine Total 2575 ml General: Other (Sedated and intubated) HEENT: Atraumatic Neck: Supple Heart: Regular Rate, Normal S1, Normal S2 Abdomen: Normal Bowel Sounds Skin: No Rashes Neuro: Other (Sedated and intubated) Psych/Mental Status: Other (Sedated and intubated) Results Lab Laboratory Tests 08/09/22 03:30 A/P-Cardiology Admission Diagnosis Acute respiratory failure Diabetic ketoacidosis Type II myocardial infarction Acute renal failure Assessment/Plan Acute respiratory failure, ventilator dependent, sedated and intubated at this time Attempt for weaning trial today. Failed yesterday. Continue to monitor, managed by medical team Sinus bradycardia, probably secondary to medication and sedation Blood pressure is stable, continue to monitor Diabetic ketoacidosis, improving, managed by medical team Metabolic encephalopathy, currently sedated. Continue to monitor Electrolyte imbalance, managed by primary care team Acute renal failure, continue on IV fluid and monitor closely Coronary artery disease, history of stent to the LAD in the remote past Cardiac catheterization done by Dr. Cortes in 2018 showing mild to moderate disease with patent stent nonobstructive disease Has been maintained on aspirin as an outpatient Mild elevation in troponin probably type II myocardial infarction secondary to hypotension and respiratory failure Maintained on Lovenox 40 mg twice daily. Abdominal aortic aneurysm, large, has been followed in the past. Patient has been noncompliant, I visited with his family. Probably will require surgical repair for his aneurysm soon. Discussed the management plan with Dr. Gaming Hypertension, monitor blood pressure Hyperlipidemia, monitor lipids VANESSA SHERWOOD MD Aug 09, 2022 09:36
--- NOTE | 2022-08-09 09:53 | Tele-ICU Progress Note ---
Progress Note failed SBT this am Not following commands Aggitated and prob not a candidate for extubation at his time Triglcerides are elevated to > 700 will stop propofol and switch to precedex Focused Exam Lactate Level 08/08/22 09:10: Lactic Acid Level 1.02 Height, Weight, BMI Height: 5'8.00" Weight: 188lbs. 9.0oz. 85.097753um; 28.68 BMI Method:Stated MARLYN CASPER MD Aug 09, 2022 09:53
[2022-08-09 10:00] VITALS: BP 148/104
[2022-08-09] MEDS ORDERED: LORazepam/NS DRIP 100 ML IV SCH (10:00)
--- NOTE | 2022-08-09 10:32 | Diagnostic Imaging Report ---
CHEST 1 VIEW, AP/PA ONLY Indication: Intubation Comparison: 08/05/2022 Findings: ET tube has tip 3 cm above the deepali. Enteric tube terminates in the proximal stomach. Low lung volumes with perihilar atelectasis. Potential small right pleural effusion. No pneumothorax. Stable borderline enlargement of cardiac silhouette. Impression: 1. Well-positioned ETT and enteric tubes. 2. Potential small right pleural effusion. Dictated by: Dictated on workstation # [id number]
[2022-08-09] MEDS: fentaNYL DRIP PRE-MIX 250 ML IV SCH (11:19)
[2022-08-09] MEDS ORDERED: LORAZEPAM IV SCH (13:30)
[2022-08-09] MEDS ORDERED: SODIUM CHLORIDE IV SCH (13:30)
[2022-08-09] MEDS: LORazepam INJECTION FOR DRIP 20 MG in NS (IVPB) 90 ML IV SCH ×2 (14:07→19:45)
[2022-08-09] MEDS: ENOXAPARIN 40 MG/0.4 ML (LOVENOX) SYR SQ SCH (15:17)
[2022-08-09 15:19] VITALS: BP 96/59
[2022-08-09 18:38] VITALS: BP 103/95
[2022-08-09] MEDS ORDERED: LORazepam/NS DRIP 100 ML ONE (19:38)
[2022-08-09] MEDS: cefTRIAXone 1 GM PRE-MIX 50 ML IV SCH (22:17)
[2022-08-09 22:36] VITALS: BP 94/59
[2022-08-10] VITALS (7 sets, daily range): BP systolic 89–142; BP diastolic 51–92
[2022-08-10] MEDS: NOREPINEPHRINE 8 MG/250 ML 250 ML IV SCH ×2 (01:54→17:47)
[2022-08-10] MEDS: 1/2 NS IV SOLUTION 1,000 ML IV SCH ×2 (01:54→11:24)
[2022-08-10] MEDS: fentaNYL DRIP PRE-MIX 250 ML IV SCH (02:14)
[2022-08-10] MEDS ORDERED: LORazepam/NS DRIP 100 ML ONE (02:24)
[2022-08-10 03:37] LABS: BASOPHILS % (AUTO) 0 % (0-10); EOSINOPHILS # (AUTO) 0.2 10^3/uL (0.0-0.3); EOSINOPHILS % (AUTO) 3 % (0-10); HEMATOCRIT 31 % (40-54); HEMOGLOBIN 10.2 g/dL (13.3-17.7); LYMPHOCYTES # (AUTO) 1.7 10^3/uL (1.0-4.0); LYMPHOCYTES % (AUTO) 32 % (12-44); MEAN CORPUSCULAR HEMOGLOBIN 31 pg (25-34); MEAN CORPUSCULAR HGB CONC 33 g/dL (32-36); MEAN CORPUSCULAR VOLUME 94 fL (80-99); MEAN PLATELET VOLUME 12.1 fL (9.0-12.2); MONOCYTES # (AUTO) 0.8 10^3/uL (0.0-1.0); MONOCYTES % (AUTO) 16 % (0-12); NEUTROPHILS # (AUTO) 2.6 10^3/uL (1.8-7.8); NEUTROPHILS % (AUTO) 48 % (42-75); PLATELET COUNT 124 10^3/uL (130-400); WHITE BLOOD COUNT 5.4 10^3/uL (4.3-11.0)
[2022-08-10 03:44] LABS: ALBUMIN 2.4 GM/DL (3.2-4.5)
[2022-08-10 03:45] LABS: POTASSIUM 4.3 MMOL/L (3.6-5.0)
[2022-08-10 03:46] LABS: CALCIUM 8.6 MG/DL (8.5-10.1)
[2022-08-10 03:47] LABS: TOTAL PROTEIN 4.9 GM/DL (6.4-8.2)
[2022-08-10 03:49] LABS: BILIRUBIN,TOTAL 0.2 MG/DL (0.1-1.0)
[2022-08-10 03:50] LABS: PHOSPHORUS 3.2 MG/DL (2.3-4.7)
[2022-08-10 03:51] LABS: CREATININE SERUM 0.97 MG/DL (0.60-1.30)
[2022-08-10] MEDS: POTASSIUM CL 10MEQ/50ML IVPB 50 ML IV SCH (05:08)
[2022-08-10] MEDS: KCL 20 MEQ TAB (K-DUR) PO SCH (05:08)
[2022-08-10] MEDS: MAGNESIUM 1 GM/100 ML IVPB 100 ML IV SCH (05:08)
[2022-08-10 05:21] LABS: ABG BASE EXCESS -0.3 MMOL/L (-2.5-2.5); ABG OXYGEN SATURATION 96 % (94-100); ABG PCO2 44 MMHG (35-45); ABG PH 7.37 (7.37-7.43); ABG PO2 71 MMHG (79-93); ABG TCO2 25.6 MMOL/L (21.0-31.0); ALLENS TEST YES-POS; INSPIRED O2 60%; PATIENT TEMP 37.1; VENTILATOR NO
[2022-08-10] MEDS: inSUlin ASPART (NovoLOG) 1 UNIT/0.01 ML (CHARGE PER UNIT) SC SCH ×4 (05:53→22:04)
--- NOTE | 2022-08-10 06:47 | Occ Therapy Progress Note ---
Therapy Progress Note Pt currently intubated. Pt will need new orders when extubated, until then OT will monitor pt's status, will initiate treatment when new orders are given and pt is medically stable to participate in skilled therapy. ACACIA MADISON Aug 10, 2022 06:47
--- NOTE | 2022-08-10 07:15 | Physical Therapy Progress Note ---
Therapy Progress Note Patient currently sedated and intubated. PT will monitor patient's status and initiate treatment when patient is able to actively participate with skilled therapy. LAVON YOUNG PT Aug 10, 2022 07:15
[2022-08-10] MEDS ORDERED: FUROSEMIDE 40 MG/4 ML INJ (LASIX) IVP ONE (08:45)
[2022-08-10] MEDS ORDERED: MIDAZOLAM DRIP PRE-MIX 100 ML IV SCH (08:45)
[2022-08-10] MEDS: LORazepam/NS DRIP 100 ML IV SCH ×2 (08:51→17:47)
[2022-08-10] MEDS: SENNOSIDES 8.6 MG (SENOKOT) TAB PO SCH ×2 (09:04→22:04)
[2022-08-10] MEDS: D5W 1000 ML IV SOLUTION 1,000 ML IV SCH (09:04)
[2022-08-10] MEDS: LACTULOSE SYRUP 10GM/15ML (ENULOSE) 30ML UDC NG SCH ×2 (09:04→22:03)
[2022-08-10] MEDS: PANTOPRAZOLE 40 MG (PROTONIX) VIAL IV SCH (09:04)
[2022-08-10] MEDS: ASPIRIN 81 MG CHEW (CHILDREN'S ASA) NG SCH (09:04)
[2022-08-10] MEDS: DOCUSATE SODIUM 100 MG (COLACE) CAP PO SCH ×2 (09:09→22:03)
--- NOTE | 2022-08-10 09:11 | Cardiology Progress Note ---
Subjective Date Seen by Provider: Aug 10, 2022 Time Seen by Provider: 09:09 Subjective/Events-last exam Patient is sedated and intubated Failed multiple weaning attempts due to agitation and confusion and not following commands Review of Systems General: Other (Unable to provide review of system) Focused Exam Lactate Level 08/08/22 09:10: Lactic Acid Level 1.02 Objective-Cardiology Exam Last Set of Vital Signs Vital Signs 08/10/22 08/10/22 08/10/22 07:21 08:46 09:00 Temp 37.1 Pulse 52 Resp 16 B/P (MAP) 98/61 (73) Pulse Ox 97 O2 Delivery Mechanical Ventilator O2 Flow Rate 45.00 FiO2 35 I&O Intake and Output 08/10/22 00:00 Intake Total 2180 ml Output Total 1100 ml Balance 1080 ml Intake Oral 0 ml IV Total 800 ml Tube Feeding 1170 ml Other 210 ml Output Urine Total 1100 ml General: Other (Sedated and intubated) HEENT: Atraumatic Neck: Supple Heart: Regular Rate, Normal S1, Normal S2 Abdomen: Normal Bowel Sounds Skin: No Rashes Neuro: Other (Sedated and intubated) Psych/Mental Status: Other (Sedated and intubated) Results Lab Laboratory Tests 08/10/22 03:20 A/P-Cardiology Admission Diagnosis Acute respiratory failure Diabetic ketoacidosis Type II myocardial infarction Acute renal failure Assessment/Plan Acute respiratory failure, ventilator dependent, sedated and intubated at this time Failed multiple attempt for weaning due to agitation and confusion not following commands. Given Lasix today and having another attempt for weaning Sinus bradycardia, probably secondary to medication and sedation Blood pressure is stable, continue to monitor Diabetic ketoacidosis, resolved, managed by medical team Metabolic encephalopathy, currently sedated. Continue to monitor Acute renal failure, resolved Continue to monitor renal function Coronary artery disease, history of stent to the LAD in the remote past Cardiac catheterization done by Dr. Cortes in 2018 showing mild to moderate disease with patent stent nonobstructive disease Has been maintained on aspirin as an outpatient Mild elevation in troponin probably type II myocardial infarction secondary to hypotension and respiratory failure Maintained on Lovenox 40 mg twice daily. Abdominal aortic aneurysm, large, has been followed in the past. Patient has been noncompliant, I visited with his family. Probably will require surgical repair for his aneurysm soon. Discussed the management plan with Dr. Gaming Hypertension, monitor blood pressure Hyperlipidemia, monitor lipids VANESSA SHERWOOD MD Aug 10, 2022 09:11
[2022-08-10] MEDS ORDERED: RT-ALBUTEROL/IPRATROPIUM 3 ML (DUONEB) VIAL INH SCH (10:00)
--- NOTE | 2022-08-10 10:48 | Tele-ICU Progress Note ---
Subjective Date Seen by a Provider: Aug 10, 2022 Time Seen by a Provider: 10:48 Subjective/Events-last exam (Tele-ICU Physician , Progress Note ) Service provided via interactive audio and video telecommunications E-CARE system to a patient admitted to ICU bed in [facility]. Patient is seen today due to persistent need of ICU care Available chart/ vitals / labs / Images reviewed Video assessment done using teleICU camera, rest of exam as per RN Discussed with RN Events overnight : Afebrile hemodynamically stable Respiratory - 25% I/O = pos 10 L since admission Drips: Pressors- no VENT SETTINGS and ABG reviewed CANDIDATE for SBTreviewed possible contraindications including Cardiovascular Stability /Sedation Score / FI02/PEEP / ABG / CXR/ secretions Sedation, discussed with RN, RASS_2 - on propofol OFF , precedex OFF due to TERRA WITH PRECEDEX ( tried twice ) ativan 3 , frntanyl 100 Consultants: Hospital course: (08.05) Admitted a 61 y/o DKA (new onset DM~BS 936), FROYLAN. Intubated for airway protection, 08/06- US LE - neg for DVT on 08/06 ,precedex OFF due to TERRA WITH PRECEDEX ( tried twice ) ECHO EF 60 % 08/09 - off levo 08/10 45 % ,change ativan gtt to versed , A/P Acute resp failure - intubated 08/05 - mental status - WILL TRY SBT today - on 45 % -+ secretions - will attempt SBT when follow commands Shock -resolved - ECHO EF 60 % 08/06 DKA, new Dx of DM -resolved - resolved , on levomir _+ ISS FORYLAN - resolved CAD , with previous stents - now with Elev trop - OFF heparin gtt - ECHO rf 60 % , RVSP 25 mm hg - cards consulted Possible R PNA ( neg covid and flu) -rocephin FINISHED 08/10 Encephalopathy - CTH neg 08/05 - moves on SAT but not folloes commands , change ativan gtt to versed , and will try SBT - ammonia 43 - Hepatic steatosis on CT - follow ammonia - 43 ( on lactulose ) Small nodule in the right middle lobe - smoker - fo follow as per PCP Infrarenal large AAA - impending rupture or dissection as per radiology - bedside team reviewed with vascular - contrast study recmmended when Cr better ( not deemed emergent) - cardiology following , - not allow high BP Drop in HB - delutional Hematuria - 08/06-resolved US LE - neg for DVT on 08/06 Elv TGL 390 -propofol is OFF Nutrition - TF started on glycerna 08/08 - seems aspiration TF as per RN onservation - place on holf now - monitor Lines : R IJ 08/05 , (Central Line Necessity Reviewed) Borrero: 08/05 OG: Nutrition: nop Analgesia: Anxiety/ delirium VTE Prophylaxis: hep gtt- OFF Stress Ulcer Prophylaxis: ppi Plans in collaboration with bedside consultants and IM MDs. Discussed with RN to reach out if any questions or concerns A total of 36 minutes of critical care time was devoted to this patient today, required to treat and/or prevent further deterioration of critical care condition ( as above ) . I am remotely monitoring this patient from another state. I am unable to do the bedside exam, and history/physical and pertinent information is taken from other notes in the computer and bedside staff. Sepsis Event Evaluation Height, Weight, BMI Height: 5'8.00" Weight: 188lbs. 9.0oz. 85.000056ln; 29.03 BMI Method:Stated Focused Exam Lactate Level 08/08/22 09:10: Lactic Acid Level 1.02 Exam Exam Patient acknowledged, consented, and participated in this virtual visit which was conducted using real time audio/video Vital Signs Date Time Temp Pulse Resp B/P (MAP) Pulse Ox O2 Delivery O2 Flow Rate FiO2 08/10/22 10:30 53 16 95 35 08/10/22 10:00 51 94/54 (67) 97 Mechanical Ventilator 45.00 08/10/22 09:26 52 16 98/61 08/10/22 09:00 52 98/61 (73) 97 Mechanical Ventilator 45.00 08/10/22 08:51 58 103/61 08/10/22 08:46 37.1 58 95 08/10/22 08:00 93 Mechanical Ventilator 45 08/10/22 08:00 58 103/61 (75) 95 Mechanical Ventilator 45.00 08/10/22 07:47 37.1 08/10/22 07:42 Mechanical Ventilator 45.00 08/10/22 07:21 56 16 95 35 08/10/22 07:00 51 108/61 (77) 96 Mechanical Ventilator 35.00 08/10/22 07:00 52 08/10/22 06:00 53 16 101/62 (75) 95 Mechanical Ventilator 35.00 08/10/22 05:00 51 16 94 08/10/22 05:00 60 16 100/60 (73) 94 Mechanical Ventilator 35.00 08/10/22 04:00 95 Mechanical Ventilator 35 08/10/22 04:00 59 16 92/58 (69) 94 Mechanical Ventilator 35.00 08/10/22 03:45 37.1 08/10/22 03:00 56 16 92/60 (71) 96 Mechanical Ventilator 35.00 08/10/22 02:42 55 16 96 35 08/10/22 02:14 54 92/57 08/10/22 02:00 53 16 92/57 (69) 97 Mechanical Ventilator 35.00 08/10/22 01:00 52 08/10/22 01:00 52 16 89/57 (68) 97 Mechanical Ventilator 35.00 08/10/22 00:00 52 16 91/59 (70) 96 Mechanical Ventilator 35.00 08/10/22 00:00 36.9 08/09/22 23:59 96 Mechanical Ventilator 35 08/09/22 23:00 56 16 91/57 (68) 96 Mechanical Ventilator 35.00 08/09/22 22:36 54 16 97 35 08/09/22 22:00 57 16 104/64 (77) 98 Mechanical Ventilator 35.00 08/09/22 21:00 55 16 102/68 (79) 98 Mechanical Ventilator 35.00 08/09/22 20:00 57 16 105/64 (78) 98 Mechanical Ventilator 35.00 08/09/22 20:00 97 Mechanical Ventilator 35 08/09/22 19:45 57 100/62 08/09/22 19:25 36.8 08/09/22 19:00 59 08/09/22 19:00 59 16 104/63 (77) 96 Mechanical Ventilator 35.00 08/09/22 18:38 58 16 95 35 08/09/22 18:00 61 15 104/61 (75) 95 Mechanical Ventilator 35.00 08/09/22 17:00 60 9 98/58 (73) 95 Mechanical Ventilator 35.00 08/09/22 16:00 95 Mechanical Ventilator 50 08/09/22 16:00 61 8 98/56 (70) 96 Mechanical Ventilator 35.00 08/09/22 15:44 36.8 08/09/22 15:19 64 16 96 40 08/09/22 15:00 60 15 97/56 (71) 97 Mechanical Ventilator 35.00 08/09/22 14:07 61 16 97/56 08/09/22 14:00 61 16 97/56 (69) 97 Mechanical Ventilator 35.00 08/09/22 13:00 66 16 108/57 (73) 96 Mechanical Ventilator 35.00 08/09/22 12:40 70 08/09/22 12:15 36.7 08/09/22 12:00 95 Mechanical Ventilator 50 08/09/22 12:00 70 11 120/69 (85) 96 Mechanical Ventilator 35.00 08/09/22 11:00 75 6 121/70 (89) 95 Mechanical Ventilator 35.00 I & O 08/10/22 07:00 Intake Total 2250 ml Output Total 1150 ml Balance 1100 ml Height & Weight Height: 5'8.00" Weight: 188lbs. 9.0oz. 85.452552qi; 29.03 BMI Method:Stated General Appearance: Chronically ill, Other (Sedated and intubated) HEENT: PERRL/EOMI, Other (Very dry oral mucosa) Neck: Normal Inspection Respiratory: Lungs Clear, Normal Breath Sounds Cardiovascular: Regular Rate, Rhythm, Normal Peripheral Pulses (2+ radial), Tachycardia Capillary Refill: Less Than 3 Seconds Extremity: Normal Capillary Refill, Normal Inspection, Normal Range of Motion, No Pedal Edema Neurologic/Psychiatric: Other (GCS 13/40, moves all extremities equally) Skin: Normal Color, Warm/Dry Results Lab Laboratory Tests 08/09/22 03:30 08/10/22 03:20 Assessment/Plan Assessment/Plan 1 FIDEL DRAKE MD Aug 10, 2022 10:48
--- NOTE | 2022-08-10 12:50 | Progress Note ---
SAM ENAMORADO 08/10/22 1249: Subjective Date Seen by a Provider: Aug 10, 2022 Time Seen by a Provider: 09:25 Subjective/Events-last exam Mr. Freedman is a 61 y/o male who presents with hyperglycemia s/p resolved DKA and AMS. Patient is intubated and sedated. Patient did not stir during encounter today. Ventilator day 6 Vent Settings: 500 / 16 / 5.0 FiO2 35% AB.37, 44, 71 HCO3 24 Positioning: supine Borrero catheter in place, OGT in place Plan for SBT today D/C Rocephin Continue Protonix 40mg PO qd for stress ulcer ppx Review of Systems unable to obtain Focused Exam Lactate Level 08/08/22 09:10: Lactic Acid Level 1.02 Objective Exam Last Set of Vital Signs Vital Signs Date Time Temp Pulse Resp B/P (MAP) Pulse Ox O2 Delivery O2 Flow Rate FiO2 08/10/22 12:00 54 107/60 (76) 94 Mechanical Ventilator 45.00 08/10/22 11:40 36.9 08/10/22 11:05 45 08/10/22 10:30 16 Capillary Refill : Less Than 3 Seconds I&O Intake and Output 08/10/22 00:00 Intake Total 2180 ml Output Total 1100 ml Balance 1080 ml Intake Oral 0 ml IV Total 800 ml Tube Feeding 1170 ml Other 210 ml Output Urine Total 1100 ml General: Other (intubated and sedated) Lungs: Other (coarse breath sounds bilaterally) Heart: Other (bradycardia) Abdomen: Normal Bowel Sounds, Soft Extremities: Other (trace pedal edema bilaterally) Results Lab Laboratory Tests 08/09/22 15:55: Glucometer 268H 08/09/22 20:11: Glucometer 233H 08/10/22 03:20: White Blood Count 5.4, Red Blood Count 3.32L, Hemoglobin 10.2L, Hematocrit 31L, Mean Corpuscular Volume 94, Mean Corpuscular Hemoglobin 31, Mean Corpuscular Hemoglobin Concent 33, Red Cell Distribution Width 14.5, Platelet Count 124L, Mean Platelet Volume 12.1, Immature Granulocyte % (Auto) 1, Neutrophils (%) (Auto) 48, Lymphocytes (%) (Auto) 32, Monocytes (%) (Auto) 16H, Eosinophils (%) (Auto) 3, Basophils (%) (Auto) 0, Neutrophils # (Auto) 2.6, Lymphocytes # (Auto) 1.7, Monocytes # (Auto) 0.8, Eosinophils # (Auto) 0.2, Basophils # (Auto) 0.0, Immature Granulocyte # (Auto) 0.1, Sodium Level 146H, Potassium Level 4.3, Chloride Level 115H, Carbon Dioxide Level 23, Anion Gap 8, Blood Urea Nitrogen 15, Creatinine 0.97, Estimat Glomerular Filtration Rate 88, BUN/Creatinine Ratio 15, Glucose Level 263H, Calcium Level 8.6, Corrected Calcium 9.9, Phosphorus Level 3.2, Magnesium Level 2.0, Total Bilirubin 0.2, Aspartate Amino Transf (AST/SGOT) 31, Alanine Aminotransferase (ALT/SGPT) 33, Alkaline Phosphatase 83, Total Protein 4.9L, Albumin 2.4L 08/10/22 03:25: Blood Gas Puncture Site UNK, Blood Gas Patient Temperature 37.1, Arterial Blood pH 7.37, Arterial Blood Partial Pressure CO2 44, Arterial Blood Partial Pressure O2 71L, Arterial Blood HCO3 24, Arterial Blood Total CO2 25.6, Arterial Blood Oxygen Saturation 96, Arterial Blood Base Excess -0.3, Ashish Test YES-POS, Blood Gas Ventilator Setting NO, Blood Gas Inspired Oxygen 60% 08/10/22 07:32: Glucometer 253H 08/10/22 11:30: Glucometer 270H Microbiology 08/09/22 Gram Stain - Final, Resulted 08/09/22 Sputum Culture - Preliminary, Resulted YEAST 08/08/22 Urine Culture - Final, Complete NO GROWTH 08/06/22 Blood Culture - Preliminary, Resulted No growth Radiology NAME: RONIT FREEDMAN [facility] REC#: [id number] PT STATUS: ADM IN : 1960 PHYSICIAN: MARLYN CASPER MD ADMIT DATE: 08/05/22/ICU Signed Date of Exam:08/09/22 CHEST 1 VIEW, AP/PA ONLY CHEST 1 VIEW, AP/PA ONLY Indication: Intubation Comparison: 08/05/2022 Findings: ET tube has tip 3 cm above the deepali. Enteric tube terminates in the proximal stomach. Low lung volumes with perihilar atelectasis. Potential small right pleural effusion. No pneumothorax. Stable borderline enlargement of cardiac silhouette. Impression: 1. Well-positioned ETT and enteric tubes. 2. Potential small right pleural effusion. Dictated by: Dictated on workstation # [id number] Dict: 08/09/22 1022 Trans: 08/09/22 1104 [facility] [id number] Interpreted by: CED ORTA MD Electronically signed by: CED ORTA MD 08/09/22 1104 Assessment/Plan Assessment/Plan Assess & Plan/Chief Complaint DKA, AMS Diagnosis/Problems Diagnosis/Problems (1) DKA (diabetic ketoacidosis) Status: Resolved Assessment & Plan: DKA has resolved -Hyperglycemia persists -Continue to monitor blood glucose -Sliding scale insulin -Insulin detemir: increase from 10units to 15units SC BID. Qualifiers: Qualified Codes: E13.10 - Other specified diabetes mellitus with ketoacidosis without coma (2) Non-ST elevated myocardial infarction Status: Acute Assessment & Plan: -Appreciate plan per Cardiology -DVT/PE ppx with Lovenox 40mg SC BID -ASA 81mg PO daily (3) Hypertension Status: Chronic Assessment & Plan: -Continue to monitor BP -Levophed protocol in place for management of SBP <90, MAP <65 (4) Hyperlipidemia Status: Chronic Assessment & Plan: Hypertriglyceridemia of 442 on 08/09, likely secondary to propofol. Discontinue propofol and switch to precedex -Full lipid panel to assess need for statin therapy (5) History of CAD (coronary artery disease) Status: Resolved Assessment & Plan: -Appreciate plan per Cardiology -DVT/PE ppx with Lovenox 40mg SC BID -ASA 81mg PO daily -Lipid panel (6) Altered mental status Status: Acute Assessment & Plan: Upon admission patient was found to have AMS and was intubated. Plan for SBT today, 08/10 Appreciate plan per Critical Care D/C Rocephin today, no source of infection/infection ruled-out Qualifiers: Qualified Codes: R41.82 - Altered mental status, unspecified NAGI DURAND MD 08/10/22 1500: Supervisory-Addendum Brief Verification & Attestation Participated in pt care: history, MDM, physical Personally performed: exam, history, MDM, supervision of care Care discussed with: Medical Student Procedures: n/a I personally saw and examined patient and did my own history and exam which confirm that documented by the medical student. I directed the plan of care as documented by the medical student. SAM ENAMORADO Aug 10, 2022 12:49 NAGI DURAND MD Aug 10, 2022 15:00
--- NOTE | 2022-08-10 13:34 | Physical Therapy Progress Note ---
Therapy Progress Note Patient very alert and sitting up in bed. Patient declined PT at this time due to "having a big morning". Patient was incontinent BM this a.m. requiring assistance of OT and PCT. PT will attempt in a.m. 1 ref LAVON YOUNG PT Aug 10, 2022 13:34
[2022-08-10] MEDS: ENOXAPARIN 40 MG/0.4 ML (LOVENOX) SYR SQ SCH (14:43)
[2022-08-10] MEDS: RT-IPRATROPIUM (ATROVENT) 0.5MG/2.5ML AMP IH SCH ×2 (19:01→22:24)
[2022-08-10] MEDS: RT-ALBUTEROL SULF 2.5 MG/3 ML PRE-MIX VIAL INH SCH ×2 (19:02→22:24)
--- NOTE | 2022-08-10 21:03 | Anesthesia-Procedure Note ---
Procedures/Interventions Procedure Start/Stop/Diagnosis Date of Procedure: Aug 10, 2022 Start Time: 20:40 Stop Time: 20:55 Intubation Reason Intubation/Diagnosis: RESP FAIILURE RSI: Yes 100% pre-Ox, [id number]: Yes Intubation Method: orotracheal Videoscope used: Yes Grade View: 1 Medications: Propofol (100), Succinylcholine (100) Mask Ventilation: positive Positive End Tide CO2: Yes Breath Sounds after Intubation: bilateral-equal ETT Securred @ (cm): 24 Intubated with ease: Yes Intubation Complications: no complications Post Intubation Xray-done: Yes Progress/Xray Impression: PENDING Post Procedure INTUBATED WITHOUT DIFFICULTY OETT 8.0 Care turned over to: SALES CONTRACTORANA LAURA ROLLE CRNA Aug 10, 2022 21:03
[2022-08-10] MEDS ORDERED: fentaNYL DRIP PRE-MIX 250 ML IV ONE (21:10)
[2022-08-10] MEDS ORDERED: PROPOFOL DRIP (ICU) 100 ML IV ONE (21:10)
[2022-08-10] MEDS ORDERED: PROPOFOL DRIP (ICU) 100 ML IV SCH (21:15)
[2022-08-10] MEDS ORDERED: fentaNYL INJ 100 MCG/2 ML AMP ONE (21:15)
--- NOTE | 2022-08-10 21:30 | Diagnostic Imaging Report ---
INDICATION: Intubation. COMPARISON is made with prior exam of 08/09/2022. FINDINGS: ET and NG tubes appear in satisfactory positions. Heart size is stable. There is some venous congestion. There is no pleural effusion or pneumothorax. The mediastinum is unremarkable. IMPRESSION: Moderate central pulmonary venous congestion. ET and NG tubes are in satisfactory positions. Dictated by: Dictated on workstation # [id number]
[2022-08-10] MEDS: DexMEDEtomidine 250 ML DRIP 250 ML IV SCH (22:22)
[2022-08-11] MEDS: NYSTATIN ORAL SUSP 5 ML UDC PO SCH ×4 (00:20→18:08)
[2022-08-11] MEDS: fentaNYL DRIP PRE-MIX 250 ML IV SCH ×3 (00:20→15:32)
[2022-08-11 01:36] VITALS: BP 96/58
[2022-08-11] MEDS: RT-ALBUTEROL SULF 2.5 MG/3 ML PRE-MIX VIAL INH SCH ×6 (01:36→22:47)
[2022-08-11] MEDS: RT-IPRATROPIUM (ATROVENT) 0.5MG/2.5ML AMP IH SCH ×6 (01:36→22:47)
[2022-08-11 03:54] LABS: ABG BASE EXCESS 3.6 MMOL/L (-2.5-2.5); ABG OXYGEN SATURATION 94 % (94-100); ABG PCO2 44 MMHG (35-45); ABG PH 7.42 (7.37-7.43); ABG PO2 63 MMHG (79-93); ABG TCO2 29.1 MMOL/L (21.0-31.0); ALLENS TEST YES-POS; BASOPHILS % (AUTO) 0 % (0-10); EOSINOPHILS # (AUTO) 0.1 10^3/uL (0.0-0.3); EOSINOPHILS % (AUTO) 1 % (0-10); HEMATOCRIT 31 % (40-54); HEMOGLOBIN 9.9 g/dL (13.3-17.7); LYMPHOCYTES # (AUTO) 1.4 10^3/uL (1.0-4.0); LYMPHOCYTES % (AUTO) 18 % (12-44); MEAN CORPUSCULAR HEMOGLOBIN 30 pg (25-34); MEAN CORPUSCULAR HGB CONC 32 g/dL (32-36); MEAN CORPUSCULAR VOLUME 94 fL (80-99); MEAN PLATELET VOLUME 11.7 fL (9.0-12.2); MONOCYTES % (AUTO) 12 % (0-12); NEUTROPHILS # (AUTO) 5.5 10^3/uL (1.8-7.8); NEUTROPHILS % (AUTO) 68 % (42-75); PLATELET COUNT 153 10^3/uL (130-400); WHITE BLOOD COUNT 8.2 10^3/uL (4.3-11.0)
[2022-08-11 03:55] LABS: INSPIRED O2 35%; PATIENT TEMP 37.3; VENTILATOR YES
[2022-08-11 04:08] LABS: ALBUMIN 2.5 GM/DL (3.2-4.5); POTASSIUM 3.8 MMOL/L (3.6-5.0)
[2022-08-11 04:09] LABS: CALCIUM 8.5 MG/DL (8.5-10.1)
[2022-08-11 04:12] LABS: BILIRUBIN,TOTAL 0.2 MG/DL (0.1-1.0)
[2022-08-11 04:14] LABS: CREATININE SERUM 0.95 MG/DL (0.60-1.30); PHOSPHORUS 3.6 MG/DL (2.3-4.7)
[2022-08-11 04:17] LABS: MAGNESIUM 1.8 MG/DL (1.6-2.4)
[2022-08-11] MEDS: MAGNESIUM 1 GM/100 ML IVPB 100 ML IV SCH ×2 (04:23→04:55)
[2022-08-11] MEDS: POTASSIUM CL 10MEQ/50ML IVPB 50 ML IV SCH ×2 (04:23→04:54)
[2022-08-11] MEDS: KCL 20 MEQ TAB (K-DUR) PO SCH ×2 (04:24→04:55)
[2022-08-11] MEDS: inSUlin ASPART (NovoLOG) 1 UNIT/0.01 ML (CHARGE PER UNIT) SC SCH ×3 (05:36→18:23)
--- NOTE | 2022-08-11 06:47 | Occ Therapy Progress Note ---
Therapy Progress Note Pt currently intubated. Pt will need new orders when extubated, until then OT will monitor pt's status, will initiate treatment when new orders are given and pt is medically stable to participate in skilled therapy. ACACIA MADISON Aug 11, 2022 06:47
[2022-08-11 07:03] VITALS: BP 99/65
--- NOTE | 2022-08-11 07:08 | Physical Therapy Progress Note ---
Therapy Progress Note Patient extubated 08/10/22 and reintubated same day. PT to remove patient from schedule. PT will require new orders when patient is medically stable and able to actively participate with skilled therapy. LAVON YOUNG PT Aug 11, 2022 07:08
--- NOTE | 2022-08-11 08:05 | Cardiology Progress Note ---
Subjective Date Seen by Provider: Aug 11, 2022 Time Seen by Provider: 08:04 Subjective/Events-last exam Patient is sedated and intubated Review of Systems General: Other (Unable to provide review of system) Focused Exam Lactate Level 08/08/22 09:10: Lactic Acid Level 1.02 Objective-Cardiology Exam Last Set of Vital Signs Vital Signs 08/11/22 08/11/22 08/11/22 08/11/22 07:00 07:03 07:42 07:59 Temp 37.0 Pulse 62 Resp 16 B/P (MAP) 96/61 Pulse Ox 95 O2 Delivery Mechanical Ventilator O2 Flow Rate 35.00 FiO2 35 I&O Intake and Output 08/11/22 00:00 Intake Total 1243 ml Output Total 2000 ml Balance -757 ml IV Total 568 ml Tube Feeding 455 ml Other 220 ml Output Urine Total 2000 ml General: Other (intubated and sedated) HEENT: Atraumatic Neck: Supple Lungs: Other (coarse breath sounds bilaterally) Heart: Other (bradycardia) Abdomen: Normal Bowel Sounds, Soft Extremities: Other (trace pedal edema bilaterally) Skin: No Rashes Neuro: Other (Sedated and intubated) Psych/Mental Status: Other (Sedated and intubated) Results Lab Laboratory Tests 08/11/22 03:40 A/P-Cardiology Admission Diagnosis Acute respiratory failure Diabetic ketoacidosis Type II myocardial infarction Acute renal failure Assessment/Plan Acute respiratory failure, ventilator dependent, sedated and intubated at this time Failed multiple attempt for weaning due to agitation and confusion not following commands. Managed by medical team Sinus bradycardia, probably secondary to medication and sedation Blood pressure is stable, continue to monitor Diabetic ketoacidosis, resolved, managed by medical team Metabolic encephalopathy, currently sedated. Continue to monitor Acute renal failure, resolved Continue to monitor renal function Coronary artery disease, history of stent to the LAD in the remote past Cardiac catheterization done by Dr. Cortes in 2018 showing mild to moderate disease with patent stent nonobstructive disease Has been maintained on aspirin as an outpatient Mild elevation in troponin probably type II myocardial infarction secondary to hypotension and respiratory failure Maintained on Lovenox 40 mg twice daily. Abdominal aortic aneurysm, large, has been followed in the past. Patient has been noncompliant, I visited with his family. Probably will require surgical repair for his aneurysm soon. Discussed the management plan with Dr. Gaming Hypertension, monitor blood pressure Hyperlipidemia, monitor lipids VANESSA SHERWOOD MD Aug 11, 2022 08:05
[2022-08-11] MEDS: DOCUSATE SODIUM 100 MG (COLACE) CAP PO SCH ×2 (08:53→20:36)
[2022-08-11] MEDS: D5W 1000 ML IV SOLUTION 1,000 ML IV SCH (09:14)
[2022-08-11] MEDS: PANTOPRAZOLE 40 MG (PROTONIX) VIAL IV SCH (09:15)
[2022-08-11] MEDS: ASPIRIN 81 MG CHEW (CHILDREN'S ASA) NG SCH (09:15)
[2022-08-11] MEDS: LACTULOSE SYRUP 10GM/15ML (ENULOSE) 30ML UDC NG SCH ×2 (09:15→20:36)
[2022-08-11] MEDS: SENNOSIDES 8.6 MG (SENOKOT) TAB PO SCH ×2 (09:15→20:36)
[2022-08-11] MEDS: NOREPINEPHRINE 8 MG/250 ML 250 ML IV SCH (09:22)
[2022-08-11 10:38] VITALS: BP 99/65
--- NOTE | 2022-08-11 10:39 | Tele-ICU Progress Note ---
Subjective Date Seen by a Provider: Aug 11, 2022 Time Seen by a Provider: 10:39 Subjective/Events-last exam (Tele-ICU Physician , Progress Note ) Service provided via interactive audio and video telecommunuFaber E-CARE system to a patient admitted to ICU bed in [facility]. Patient is seen today due to persistent need of ICU care Available chart/ vitals / labs / Images reviewed Video assessment done using teleICU camera, rest of exam as per RN Discussed with RN Events overnight : Afebrile hemodynamically stable Respiratory - 25% I/O = pos 10 L since admission Drips: Pressors- no VENT SETTINGS and ABG reviewed CANDIDATE for SBTreviewed possible contraindications including Cardiovascular Stability /Sedation Score / FI02/PEEP / ABG / CXR/ secretions Sedation, discussed with RN, RASS_2 - on propofol OFF , precedex OFF due to ETRRA WITH PRECEDEX ( tried twice ) ativan 3 , frntanyl 100 Consultants: Hospital course: (08.05) Admitted a 61 y/o DKA (new onset DM~BS 936), FROYLAN. Intubated for airway protection, 08/06- US LE - neg for DVT on 08/06 ,precedex OFF due to TERRA WITH PRECEDEX ( tried twice ) ECHO EF 60 % 08/09 - off levo 08/10 45 % ,change ativan gtt to versed (08/10) -EXTUBATED when moved everything , not follow commands - 2 h off any sedation , getting agitaed with good SBT , then re-intubated for airway protectoion - not improving mental status A/P Acute resp failure - intubated 08/05 - mental status -- (08/10) -EXTUBATED when moved everything , not follow commands - 2 h off any sedation , getting agitaed with good SBT , then re-intubated for airway protectoion - not improving mental status Encephalopathy - CTH neg 08/05 - 08/10 moves on SAT but not folloes commands 2 h off any sedation - extubated --> reintubated - will check CTH today , might need MRI ( there is no comnpatable vent for MRI , but while extubated was moving a lot - will not be able to stay still for MRI too - ammonia 43 , on lactulose Shock -resolved - ECHO EF 60 % 08/06 DKA, new Dx of DM -resolved - resolved , on levemir _+ ISS FROYLAN - resolved CAD , with previous stents - now with Elev trop - OFF heparin gtt - ECHO rf 60 % , RVSP 25 mm hg - cards consulted Nutrition - TF started on glycerna 08/08 - seems aspiration TF as per RN onservation - place on hold 08/10 08/11 - NG with 500 ml output - keep on LIS - OFF TF Possible R PNA ( neg covid and flu) -rocephin FINISHED 08/[address] - follow ammonia - 43 ( on lactulose ) Small nodule in the right middle lobe - smoker - fo follow as per PCP Infrarenal large AAA - impending rupture or dissection as per radiology - bedside team reviewed with vascular - contrast study recmmended when Cr better ( not deemed emergent) - cardiology following , - not allow high BP Drop in HB - delutional Hematuria - 08/06-resolved US LE - neg for DVT on 08/06 Elv TGL 390 -propofol is OFF Lines : R IJ 08/05 , (Central Line Necessity Reviewed) Borrero: 08/05 OG: Nutrition: nop Analgesia: Anxiety/ delirium VTE Prophylaxis:lovenox Stress Ulcer Prophylaxis: ppi Plans in collaboration with bedside consultants and IM MDs. Discussed with RN to reach out if any questions or concerns A total of 35 minutes of critical care time was devoted to this patient today, required to treat and/or prevent further deterioration of critical care condi tion ( as above ) . I am remotely monitoring this patient from another state. I am unable to do the bedside exam, and history/physical and pertinent information is taken from other notes in the computer and bedside staff. Sepsis Event Evaluation Height, Weight, BMI Height: 5'8.00" Weight: 188lbs. 9.0oz. 85.519657nd; 27.74 BMI Method:Stated Exam Exam Patient acknowledged, consented, and participated in this virtual visit which was conducted using real time audio/video Vital Signs Date Time Temp Pulse Resp B/P (MAP) Pulse Ox O2 Delivery O2 Flow Rate FiO2 08/11/22 10:00 71 15 104/57 (73) 93 Mechanical Ventilator 35.00 08/11/22 09:00 76 16 106/58 (74) 90 Mechanical Ventilator 35.00 08/11/22 08:00 92 Mechanical Ventilator 35 08/11/22 08:00 65 14 116/64 (81) 98 Mechanical Ventilator 35.00 08/11/22 07:59 62 96/61 08/11/22 07:42 37.0 08/11/22 07:03 59 16 95 35 08/11/22 07:00 58 16 99/65 (76) 95 Mechanical Ventilator 35.00 08/11/22 07:00 58 08/11/22 06:00 56 16 95/59 (71) 93 Mechanical Ventilator 35.00 08/11/22 05:42 35 08/11/22 05:00 61 16 102/62 (75) 94 Mechanical Ventilator 35.00 08/11/22 04:54 66 103/60 08/11/22 04:21 93 Mechanical Ventilator 35 08/11/22 04:15 62 16 99/60 (73) 93 Mechanical Ventilator 35.00 08/11/22 03:30 37.3 16 Mechanical Ventilator 35.00 08/11/22 03:00 66 16 103/60 (74) 93 Mechanical Ventilator 35.00 08/11/22 02:00 35 08/11/22 02:00 62 16 100/61 (74) 92 Mechanical Ventilator 35.00 08/11/22 01:36 60 17 92 35 08/11/22 01:30 37.1 16 Mechanical Ventilator 35.00 08/11/22 01:30 37.1 08/11/22 01:00 57 08/11/22 01:00 57 16 96/59 (71) 93 Mechanical Ventilator 35.00 08/11/22 00:46 38.1 08/11/22 00:45 60 120/68 08/11/22 00:05 95 Mechanical Ventilator 35 08/11/22 00:00 60 16 120/68 (85) 97 Mechanical Ventilator 35.00 08/10/22 23:00 37.8 16 Mechanical Ventilator 35.00 08/10/22 23:00 70 16 123/69 (87) 95 Mechanical Ventilator 35.00 08/10/22 22:24 67 16 96 35 08/10/22 22:22 88 164/87 08/10/22 22:00 35 08/10/22 22:00 70 16 145/79 (101) 95 Mechanical Ventilator 35.00 08/10/22 21:05 88 22 95 35 08/10/22 21:00 77 16 161/81 (107) 93 Mechanical Ventilator 35.00 08/10/22 20:51 Mechanical Ventilator 35.00 08/10/22 20:00 86 16 149/86 (107) 94 High Flow N/C 5.00 08/10/22 20:00 94 High Flow N/C 5.00 08/10/22 19:50 38.3 08/10/22 19:02 95 High Flow N/C 5.00 08/10/22 19:00 77 08/10/22 19:00 High Flow N/C 5.00 08/10/22 19:00 77 162/85 (110) 100 High Flow N/C 5.00 08/10/22 18:00 75 164/87 (112) 93 High Flow N/C 12.00 08/10/22 17:07 High Flow N/C 5.00 08/10/22 17:00 High Flow N/C 12.00 08/10/22 17:00 67 142/72 (95) 93 High Flow N/C 12.00 08/10/22 16:51 72 14 92 35 08/10/22 16:00 37.5 08/10/22 16:00 71 145/92 (109) 94 Mechanical Ventilator 35.00 08/10/22 15:35 98 Mechanical Ventilator 35 08/10/22 15:27 73 21 95 35 08/10/22 15:00 62 134/82 (99) 93 Mechanical Ventilator 35.00 08/10/22 14:12 Mechanical Ventilator 35.00 08/10/22 14:00 61 15 135/71 (92) 92 Mechanical Ventilator 45.00 08/10/22 13:00 58 7 107/62 (77) 94 Mechanical Ventilator 45.00 08/10/22 12:57 56 107/60 08/10/22 12:53 56 08/10/22 12:00 54 107/60 (76) 94 Mechanical Ventilator 45.00 08/10/22 11:40 36.9 08/10/22 11:05 95 Mechanical Ventilator 45 08/10/22 11:00 50 92/51 (65) 95 Mechanical Ventilator 45.00 I & O 08/11/22 07:00 Intake Total 593 ml Output Total 2525 ml Balance -1932 ml Height & Weight Height: 5'8.00" Weight: 188lbs. 9.0oz. 85.879843lo; 27.74 BMI Method:Stated General Appearance: Chronically ill, Other (Sedated and intubated) HEENT: PERRL/EOMI, Other (Very dry oral mucosa) Neck: Normal Inspection Respiratory: Lungs Clear, Normal Breath Sounds Cardiovascular: Regular Rate, Rhythm, Normal Peripheral Pulses (2+ radial), Tachycardia Capillary Refill: Less Than 3 Seconds Extremity: Normal Capillary Refill, Normal Inspection, Normal Range of Motion, No Pedal Edema Neurologic/Psychiatric: Other (GCS 13/40, moves all extremities equally) Skin: Normal Color, Warm/Dry Results Lab Laboratory Tests 08/10/22 03:20 08/11/22 03:40 Assessment/Plan Assessment/Plan 1 FIDEL DRAKE MD Aug 11, 2022 10:39
[2022-08-11] MEDS ORDERED: MIDAZOLAM 5 MG/5 ML (VERSED) VIAL IV NR (12:00)
[2022-08-11] MEDS ORDERED: SUCCINYLCHOLINE INJ 20 MG/1 ML 10 ML VIAL INJ ONE (12:19)
[2022-08-11] MEDS ORDERED: proPOfol 200 MG/20 ML (DIPRIVAN) VIAL IV ONE (12:19)
--- NOTE | 2022-08-11 13:59 | Progress Note - Hospitalist ---
SAM ENAMORADO 08/11/22 1359: Subjective HPI/CC On Admission Date Seen by Provider: Aug 11, 2022 Time Seen by Provider: 09:45 CC: DKA with respiratory failure HPI: This is a 61yoWM clinic patient of [facility] who presented to the ER with AMS and elevated sugar and was found to have DKA with FROYLAN and NSTEMI. Patient required intubation to stabilize and currently he remains intubated. Insulin drip initiated along with Dr Marti consultation for NSTEMI. Creatinine did improved overnight with IVF. I updated brother and girlfriend (she is deaf) and informed them of the presence of an infrarenal aneurysm so I spoke to eicu and Dr Marti and they recommended I speak to vascular surgeon and possible transfer so I spo ke to Dr Garcia in-depth and he told me this was likely present for l a long time and once kidney function improves a CT scan with IV contrast will be needed in order to prepare for repair after consultation but this was non-emergent. Subjective/Events-last exam Mr. Becker is a 61 y/o male who presents with hyperglycemia s/p resolved DKA. Patient is intubated and sedated. Patient was extubated around 1700 on 08/10. Per nursing report, the patient was non responsive to commands and was not tracking with his eyes. Patient was re-intubated later that evening around 1999. Patient stirred and was agitated briefly during exam but was consolable. Vent Settings: 500 / 16 / 5.0 FiO2 35% AB.42 / 44 / 63 Positioning: supine Borrero catheter in place, NGT in place Continue Protonix 40mg PO qd for stress ulcer ppx Review of Systems unable to obtain Objective Exam Vital Signs Vital Signs Date Time Temp Pulse Resp B/P (MAP) Pulse Ox O2 Delivery O2 Flow Rate FiO2 08/11/22 13:40 35 08/11/22 12:45 60 08/11/22 12:00 37.2 08/11/22 12:00 14 105/60 (75) 94 Mechanical Ventilator 35.00 Capillary Refill : Less Than 3 Seconds General Appearance: Other (intubated and sedated) Respiratory: Other (coarse breath sounds bilaterally) Cardiovascular: Regular Rate, Rhythm Gastrointestinal: Non Tender, Soft, Other (diminished bowel sounds) Extremity: No Pedal Edema Skin: Normal Color, Warm/Dry Results/Procedures Lab Laboratory Tests 08/11/22 03:40 Patient resulted labs reviewed. Imaging: Reviewed Imaging Films, Reviewed Imaging Report Radiology NAME: RONIT BECKER [facility] REC#: [id number] PT STATUS: ADM IN : 1960 PHYSICIAN: CHICO NAIK MD ADMIT DATE: 08/05/22/ICU Signed Date of Exam:08/10/22 CHEST 1 VIEW, AP/PA ONLY INDICATION: Intubation. COMPARISON is made with prior exam of 08/09/2022. FINDINGS: ET and NG tubes appear in satisfactory positions. Heart size is stable. There is some venous congestion. There is no pleural effusion or pneumothorax. The mediastinum is unremarkable. IMPRESSION: Moderate central pulmonary venous congestion. ET and NG tubes are in satisfactory positions. Dictated by: Dictated on workstation # [id number] Dict: 08/10/222124 Trans: 08/10/222129 [facility] [id number] Interpreted by: HEATHER NORRIS MD Electronically signed by: HEATHER NORRIS MD 08/10/222129 NAME: RONIT BECKER [facility] REC#: [id number] PT STATUS: ADM IN : 1960 PHYSICIAN: FIDEL DRAKE MD ADMIT DATE: 08/05/22/ICU Draft Date of Exam:08/11/22 CT HEAD WO PROCEDURE: CT head without contrast. TECHNIQUE: Multiple contiguous axial images were obtained through the brain without the use of intravenous contrast. Auto Exposure Controls were utilized during the CT exam to meet ALARA standards for radiation dose reduction. INDICATION: Unresponsive and intubated. Compared with head CT 08/05/2022. FINDINGS: There is no intracranial hemorrhage, hydrocephalus, cerebral edema, mass, mass effect, nor evidence for elevated intracranial pressures. Cerebral cortical volume stable. No sulcal effacement. The rahman-white matter differentiations are maintained. The orbits nonacute. There is lobular membrane thickening and new shallow maxillary sinus air-fluid levels as well as fluid within the right sphenoid sinus consistent with new sinusitis. No bony destruction. There is no mastoid effusion. Middle ear cavities unremarkable. IMPRESSION: 1. Stable unremarkable appearance of the brain. 2. Development of membrane thickening as well as air-fluid levels in the paranasal sinuses in keeping with sinusitis. Dictated on workstation # [id number] Dict: 08/11/22 1322 Trans: 08/11/22 1400 CVB [id number] Interpreted by: KEO HERRERA Electronically signed by: Assessment/Plan Assessment and Plan Assess & Plan/Chief Complaint hyperglycemia s/p resolved DKA Diagnosis/Problems Diagnosis/Problems (1) DKA (diabetic ketoacidosis) Status: Resolved Assessment & Plan: DKA has resolved -Hyperglycemia persists -Continue to monitor blood glucose -Sliding scale insulin -Insulin detemir: increase to 20 units on 08/11 Qualifiers: Qualified Codes: E13.10 - Other specified diabetes mellitus with ketoacidosis without coma (2) Non-ST elevated myocardial infarction Status: Acute Assessment & Plan: -Appreciate plan per Cardiology -DVT/PE ppx with Lovenox 40mg SC BID -ASA 81mg PO daily (3) Hypertension Status: Chronic Assessment & Plan: -Continue to monitor BP -Levophed protocol in place for management of SBP <90, MAP <65 (4) Hyperlipidemia Status: Chronic Assessment & Plan: Hypertriglyceridemia of 442 on 08/09, likely secondary to propofol. Discontinue propofol and switch to precedex -Full lipid panel to assess need for statin therapy (5) History of CAD (coronary artery disease) Status: Resolved Assessment & Plan: -Appreciate plan per Cardiology -DVT/PE ppx with Lovenox 40mg SC BID -ASA 81mg PO daily -Lipid panel (6) Altered mental status Status: Acute Assessment & Plan: -Upon admission patient was found to have AMS and was intubated. -Appreciate plan per Critical Care -D/C Rocephin on 08/10, no source of infection/infection ruled-out -Head CT on 08/11 to r/o stroke/encephalopathy as possible reason for failed extubation Qualifiers: Qualified Codes: R41.82 - Altered mental status, unspecified TRINH OLIVEROS DO 08/11/221953: Assessment/Plan Assessment and Plan Assess & Plan/Chief Complaint Suspected encephalopathy Poor prognosis May need Neuro to evaluate Supervisory-Addendum Brief Verification & Attestation Participated in pt care: history, MDM, physical Personally performed: exam, history, MDM, supervision of care Care discussed with: Medical Student Procedures: n/a Results interpretation: Verified all documentation Verification and Attestation of Medical Student E/M Service A medical student performed and documented this service in my presence. I reviewed and verified all information documented by the medical student and made modifications to such information, when appropriate. I personally performed the physical exam and medical decision making. Trinh Oliveros, Aug 11, 2022,19:53 SAM ENAMORADO Aug 11, 2022 13:59 TRINH OLIVEROS DO Aug 11, 2022 19:54
[2022-08-11 14:12] VITALS: BP 81/58
--- NOTE | 2022-08-11 15:08 | Tele-ICU Progress Note ---
Progress Note reviewed CT head - no acute findings patient was extubated yesterday to be able to assess mental status off any sedation - he moves all extremitiews , stronf , had cough and reflexes , open eyes , but not follows any commands. Was presented on 08/05 to ER after was" found by sister altered... The patient is mumbling, withdrawing from pain, eyes are open. Pupils are pinpoint. GCS 14" at that tome he was hypotensive and in DKA as explanation of AMS Metabolic derangements are corrected , tx with ABX empirically Low suspicion for meningitis on arrival with no fever family denied ETON use , tox screen negative no clinical suspicious for nonconclusive Sz discussed with Dr Daugherty -will check thiamine level and start on vitamins - to be discussed with family expectation., w/up and prognosis Focused Exam Height, Weight, BMI Height: 5'8.00" Weight: 188lbs. 9.0oz. 85.010073ss; 27.74 BMI Method:Stated FIDEL DRAKE MD Aug 11, 2022 15:08
[2022-08-11] MEDS: ENOXAPARIN 40 MG/0.4 ML (LOVENOX) SYR SQ SCH (15:32)
[2022-08-11] MEDS ORDERED: FUROSEMIDE 40 MG/4 ML INJ (LASIX) IVP ONE (18:30)
[2022-08-11] MEDS ORDERED: FUROSEMIDE 40 MG/4 ML INJ (LASIX) ONE (19:14)
[2022-08-11 19:39] VITALS: BP 117/76
[2022-08-11 22:47] VITALS: BP 106/65
[2022-08-12] MEDS: inSUlin ASPART (NovoLOG) 1 UNIT/0.01 ML (CHARGE PER UNIT) SC SCH ×4 (00:11→18:00)
[2022-08-12] MEDS: NYSTATIN ORAL SUSP 5 ML UDC PO SCH ×4 (00:11→18:16)
[2022-08-12] MEDS: DexMEDEtomidine 250 ML DRIP 250 ML IV SCH (01:48)
[2022-08-12] MEDS: fentaNYL DRIP PRE-MIX 250 ML IV SCH ×3 (01:48→18:15)
[2022-08-12] MEDS: NOREPINEPHRINE 8 MG/250 ML 250 ML IV SCH ×2 (01:49→17:30)
[2022-08-12 01:54] VITALS: BP 106/65
[2022-08-12] MEDS: RT-IPRATROPIUM (ATROVENT) 0.5MG/2.5ML AMP IH SCH ×5 (01:54→19:44)
[2022-08-12] MEDS: RT-ALBUTEROL SULF 2.5 MG/3 ML PRE-MIX VIAL INH SCH ×5 (01:54→19:44)
[2022-08-12 04:05] LABS: BASOPHILS % (AUTO) 0 % (0-10); EOSINOPHILS # (AUTO) 0.2 10^3/uL (0.0-0.3); EOSINOPHILS % (AUTO) 4 % (0-10); HEMATOCRIT 30 % (40-54); HEMOGLOBIN 9.9 g/dL (13.3-17.7); LYMPHOCYTES # (AUTO) 1.6 10^3/uL (1.0-4.0); LYMPHOCYTES % (AUTO) 24 % (12-44); MEAN CORPUSCULAR HEMOGLOBIN 31 pg (25-34); MEAN CORPUSCULAR HGB CONC 33 g/dL (32-36); MEAN CORPUSCULAR VOLUME 95 fL (80-99); MEAN PLATELET VOLUME 11.4 fL (9.0-12.2); MONOCYTES % (AUTO) 15 % (0-12); NEUTROPHILS # (AUTO) 3.8 10^3/uL (1.8-7.8); NEUTROPHILS % (AUTO) 57 % (42-75); PLATELET COUNT 193 10^3/uL (130-400); WHITE BLOOD COUNT 6.7 10^3/uL (4.3-11.0)
[2022-08-12 04:06] LABS: ABG BASE EXCESS 6.2 MMOL/L (-2.5-2.5); ABG OXYGEN SATURATION 96 % (94-100); ABG PCO2 46 MMHG (35-45); ABG PH 7.43 (7.37-7.43); ABG PO2 73 MMHG (79-93)
[2022-08-12 04:16] LABS: ALLENS TEST YES-POS; INSPIRED O2 35%; PATIENT TEMP 36.7; VENTILATOR YES
[2022-08-12 04:18] LABS: ALBUMIN 2.5 GM/DL (3.2-4.5); POTASSIUM 3.7 MMOL/L (3.6-5.0)
[2022-08-12 04:19] LABS: CALCIUM 8.5 MG/DL (8.5-10.1)
[2022-08-12 04:20] LABS: TOTAL PROTEIN 5.1 GM/DL (6.4-8.2)
[2022-08-12 04:22] LABS: BILIRUBIN,TOTAL 0.3 MG/DL (0.1-1.0)
[2022-08-12 04:23] LABS: PHOSPHORUS 3.4 MG/DL (2.3-4.7)
[2022-08-12 04:24] LABS: CREATININE SERUM 0.87 MG/DL (0.60-1.30)
[2022-08-12] MEDS: KCL 20 MEQ TAB (K-DUR) PO SCH (04:24)
[2022-08-12] MEDS: POTASSIUM CL 10MEQ/50ML IVPB 50 ML IV SCH (04:24)
[2022-08-12 04:27] LABS: MAGNESIUM 1.9 MG/DL (1.6-2.4)
[2022-08-12] MEDS: D5W 1000 ML IV SOLUTION 1,000 ML IV SCH (05:29)
[2022-08-12] MEDS: MAGNESIUM 1 GM/100 ML IVPB 100 ML IV SCH (06:26)
[2022-08-12 06:48] VITALS: BP 95/59
--- NOTE | 2022-08-12 06:49 | Occ Therapy Progress Note ---
Therapy Progress Note Pt currently intubated. Pt will need new orders when extubated, until then OT will monitor pt's status, will initiate treatment when new orders are given and pt is medically stable to participate in skilled therapy. ACACIA MADISON Aug 12, 2022 06:49
[2022-08-12] MEDS: SENNOSIDES 8.6 MG (SENOKOT) TAB PO SCH (08:15)
[2022-08-12] MEDS: PANTOPRAZOLE 40 MG (PROTONIX) VIAL IV SCH (08:15)
[2022-08-12] MEDS: LACTULOSE SYRUP 10GM/15ML (ENULOSE) 30ML UDC NG SCH (08:15)
[2022-08-12] MEDS: ASPIRIN 81 MG CHEW (CHILDREN'S ASA) NG SCH (08:15)
[2022-08-12] MEDS ORDERED: THIAMINE INJECTION 100 MG in NS (IVPB) 50 ML IV SCH (09:00)
[2022-08-12] MEDS: DOCUSATE SODIUM 100 MG (COLACE) CAP PO SCH (09:00)
[2022-08-12] MEDS ORDERED: FOLIC ACID 5MG/ML 10 ML IV SCH (09:00)
[2022-08-12 10:36] VITALS: BP 110/60
--- NOTE | 2022-08-12 10:51 | Tele-ICU Progress Note ---
Subjective Date Seen by a Provider: Aug 12, 2022 Time Seen by a Provider: 12:15 Subjective/Events-last exam (Tele-ICU Physician , Progress note) Available chart/ vitals / labs / Images reviewed H&P is from ER notes Patient's information available about PMH, allergy reviewed in EMR. ROS as per chart and RN report Video assessment done using teleICU camera, rest of exam as per RN Discussed with RN. He is a 61-year-old male with past medical history of hypertension, hyperlipidemia and coronary artery disease status post LAD stenting in 2009 who was brought to the emergency room because of altered mental status and he was found to be incoherent but moving all 4 limbs. He is found to have a markedly elevated blood glucose with diabetic ketoacidosis. Patient not known to have diabetes based on his previous admission in 2018. Also patient has a markedly elevated BUN and creatinine. When compared to labs in 2018 this is not new. He was intubated and put on mechanical ventilation in the emergency room .since then he remained on vent. he was briefly extubated on 08/10/22 but re intubated on the same day for airway protection as his mental status did not improve. he is off the insulin drip and metabolic abnormalities have improved significantly. family denied that he as any alcoholism. Impression 1. Diabetic ketoacidosis improved.. 2. Acute kidney failure secondary to dehydration improved 3. Elevated CRP rule out any underlying infection. 4. Slightly elevated troponin probably demand ischemia, cardiology following. 5. Hypertension history but now his blood pressure is borderline 6. Hyperlipidemia history apparently noncompliant. 7. Acute hypoxic respiratory failure requiring mechanical ventilation. 8. Altered mental status probably due to Metabolic encephalopathy. Recommendations 1. Continue monitor in/outs and adjust IVF. 2. Continue mechanical ventilatory support with tidal volume of 500, respiratory rate of 16 , FiO2 of 45% and a PEEP of 5 and will will consider SBT when mental status improves. 3. He will need MRI of brain and EEG and neurology consult. For these I would recommend to transfer to a tertiary care center. 4. DVT prophylaxis and ulcer prophylaxis. 5. will start on fluconazole for yeast in sputum x3 6. SSI per primary care 7. Cardiology consultation has already been requested. Coordination of care with bedside consultants and primary care physician. Review of Systems ROS PER RN Sepsis Event Evaluation Height, Weight, BMI Height: 5'8.00" Weight: 188lbs. 9.0oz. 85.608619gq; 27.65 BMI Method:Stated Exam Exam Patient acknowledged, consented, and participated in this virtual visit which was conducted using real time audio/video Vital Signs Date Time Temp Pulse Resp B/P (MAP) Pulse Ox O2 Delivery O2 Flow Rate FiO2 08/12/22 10:36 71 16 91 35 08/12/22 10:00 71 15 130/75 (93) 90 Mechanical Ventilator 35.00 08/12/22 09:00 60 15 93/57 (69) 93 Mechanical Ventilator 35.00 08/12/22 08:00 61 16 96/60 (72) 94 Mechanical Ventilator 35.00 08/12/22 08:00 36.9 08/12/22 07:19 58 08/12/22 07:00 56 15 94/58 (70) 96 Mechanical Ventilator 35.00 08/12/22 06:48 63 17 91 35 08/12/22 06:00 56 16 98/68 (78) 96 Mechanical Ventilator 35.00 08/12/22 05:37 35 08/12/22 05:36 55 22 92 08/12/22 05:30 60 96/59 08/12/22 05:30 60 96/59 08/12/22 05:00 56 16 107/66 (80) 97 Mechanical Ventilator 35.00 08/12/22 04:04 36.7 16 Mechanical Ventilator 35.00 08/12/22 04:02 94 Mechanical Ventilator 35 08/12/22 03:00 60 16 96/59 (75) 93 Mechanical Ventilator 35.00 08/12/22 02:01 36.7 16 Mechanical Ventilator 35.00 08/12/22 02:00 60 16 99/60 (75) 95 Mechanical Ventilator 35.00 08/12/22 02:00 35 08/12/22 01:54 56 16 92 35 08/12/22 01:48 56 106/65 08/12/22 01:48 56 106/65 08/12/22 01:00 54 08/12/22 01:00 54 16 99/65 (74) 95 Mechanical Ventilator 35.00 08/12/22 00:00 93 Mechanical Ventilator 35 08/12/22 00:00 58 16 99/61 (75) 94 Mechanical Ventilator 35.00 08/11/22 23:00 37.0 16 Mechanical Ventilator 35.00 08/11/22 23:00 57 16 102/69 (83) 92 Mechanical Ventilator 35.00 08/11/22 22:47 56 16 92 35 08/11/22 22:00 35 08/11/22 22:00 60 16 100/60 (76) 92 Mechanical Ventilator 35.00 08/11/22 21:00 56 49 101/64 (89) 98 Mechanical Ventilator 35.00 08/11/22 20:02 55 16 101/66 (79) 94 Mechanical Ventilator 35.00 08/11/22 20:00 95 Mechanical Ventilator 35 08/11/22 20:00 36.7 08/11/22 19:39 55 19 96 35 08/11/22 19:33 53 106/67 08/11/22 19:20 16 Mechanical Ventilator 35.00 08/11/22 19:00 51 08/11/22 19:00 51 16 101/66 (80) 96 Mechanical Ventilator 35.00 08/11/22 18:00 53 106/67 (80) 96 Mechanical Ventilator 35.00 08/11/22 17:16 35 08/11/22 17:00 52 99/65 (76) 96 Mechanical Ventilator 35.00 08/11/22 16:17 97 Mechanical Ventilator 35 08/11/22 16:00 36.2 08/11/22 16:00 55 13 106/67 (80) 96 Mechanical Ventilator 35.00 08/11/22 15:32 56 100/63 08/11/22 15:00 56 16 100/63 (75) 96 Mechanical Ventilator 35.00 08/11/22 14:12 53 16 95 35 08/11/22 14:00 55 18 100/63 (75) 94 Mechanical Ventilator 35.00 08/11/22 13:40 35 08/11/22 13:30 57 36 100/67 (78) 94 Mechanical Ventilator 35.00 08/11/22 12:45 60 08/11/22 12:45 60 44 102/62 (75) 94 Mechanical Ventilator 35.00 08/11/22 12:00 37.2 08/11/22 12:00 64 14 105/60 (75) 94 Mechanical Ventilator 35.00 08/11/22 11:54 93 Mechanical Ventilator 35 08/11/22 11:00 66 16 104/59 (74) 93 Mechanical Ventilator 35.00 I & O 08/12/22 07:00 Intake Total 2860 ml Output Total 1650 ml Balance 1210 ml Height & Weight Height: 5'8.00" Weight: 188lbs. 9.0oz. 85.501480tm; 27.65 BMI Method:Stated General Appearance: Other (intubated and sedated) HEENT: PERRL/EOMI, Other (Very dry oral mucosa) Neck: Normal Inspection Respiratory: Other (coarse breath sounds bilaterally) Cardiovascular: Regular Rate, Rhythm Capillary Refill: Less Than 3 Seconds Extremity: No Pedal Edema Neurologic/Psychiatric: Other (GCS 13/40, moves all extremities equally) Skin: Normal Color, Warm/Dry Other comments PE PER RN Results Lab Laboratory Tests 08/11/22 03:40 08/12/22 03:55 Assessment/Plan Assessment/Plan ABOVE Critical Care: Ventilator Management Time spent with patient (mins): 35 WENDY HERNANDEZ MD Aug 12, 2022 10:50
--- NOTE | 2022-08-12 12:04 | Cardiology Progress Note ---
Subjective Date Seen by Provider: Aug 12, 2022 Time Seen by Provider: 12:04 Subjective/Events-last exam Patient is sedated and intubated, failed weaning Review of Systems General: Other (Unable to provide review of system) Objective-Cardiology Exam Last Set of Vital Signs Vital Signs 08/12/22 08/12/22 08/12/22 08/12/22 10:36 11:00 11:13 11:59 Temp 36.9 Pulse 71 Resp 16 B/P (MAP) 110/60 Pulse Ox 92 O2 Delivery Mechanical Ventilator O2 Flow Rate 35.00 FiO2 35 I&O Intake and Output 08/12/22 00:00 Intake Total 1560 ml Output Total 1925 ml Balance -365 ml IV Total 1250 ml Other 310 ml Output Urine Total 1275 ml Gastric Drainage Total 650 ml General: Other (intubated and sedated) HEENT: Atraumatic Neck: Supple Lungs: Other (coarse breath sounds bilaterally) Heart: Other (bradycardia) Abdomen: Normal Bowel Sounds, Soft Extremities: Other (trace pedal edema bilaterally) Skin: No Rashes Neuro: Other (Sedated and intubated) Psych/Mental Status: Other (Sedated and intubated) Results Lab Laboratory Tests 08/12/22 03:55 A/P-Cardiology Admission Diagnosis Acute respiratory failure Diabetic ketoacidosis Type II myocardial infarction Acute renal failure Assessment/Plan Acute respiratory failure, ventilator dependent, sedated and intubated at this time Failed multiple attempt for weaning due to agitation and confusion not following commands. Managed by medical team Sinus bradycardia, probably secondary to medication and sedation Blood pressure is stable, continue to monitor Diabetic ketoacidosis, resolved, managed by medical team Metabolic encephalopathy, currently sedated. Continue to monitor Acute renal failure, resolved Continue to monitor renal function Coronary artery disease, history of stent to the LAD in the remote past Cardiac catheterization done by Dr. Cortes in 2018 showing mild to moderate disease with patent stent nonobstructive disease Has been maintained on aspirin as an outpatient Mild elevation in troponin probably type II myocardial infarction secondary to hypotension and respiratory failure Maintained on Lovenox 40 mg twice daily. Abdominal aortic aneurysm, large, has been followed in the past. Patient has been noncompliant, I visited with his family. Probably will require surgical repair for his aneurysm soon. Discussed the management plan with Dr. Gaming Hypertension, monitor blood pressure Hyperlipidemia, monitor lipids VANESSA SHERWOOD MD Aug 12, 2022 12:04
[2022-08-12] MEDS ORDERED: PROCHLORPERAZINE 10 MG/2ML INJ (COMPAZINE) IV PRN (12:45)
[2022-08-12] MEDS ORDERED: FLUCONAZOLE 200 MG/100 ML 100 ML IV NR (13:00)
[2022-08-12 14:24] VITALS: BP 108/70
[2022-08-12] MEDS: ENOXAPARIN 40 MG/0.4 ML (LOVENOX) SYR SQ SCH (14:26)
[2022-08-12] MEDS ORDERED: NS IV 500 ML 500 ML IV SCH (16:15)
[2022-08-12] MEDS: NS IV 500 ML 500 ML IV SCH ×2 (18:00→18:15)
--- NOTE | 2022-08-12 20:06 | Discharge Summary ---
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 need of emergent repair per vascular surgery phone call c onsult Smoker Plan: ICU Insulin drip Vent management appreciated IVF Borrero Venous doppler Hep Primary Care Hipolito Gatica MD Discharge Diagnosis Resolved DKA, AMS (1) DKA (diabetic ketoacidosis) Status: Resolved Assessment & Plan: DKA has resolved -Hyperglycemia persists -Continue to monitor blood glucose -Sliding scale insulin -Insulin detemir: increase to 25 units on 08/12 (2) Non-ST elevated myocardial infarction Status: Acute Assessment & Plan: -Appreciate plan per Cardiology -DVT/PE ppx with Lovenox 40mg SC BID -ASA 81mg PO daily (3) Hypertension Status: Chronic Assessment & Plan: -Continue to monitor BP -Levophed protocol in place for management of SBP <90, MAP <65 (4) Hyperlipidemia Status: Chronic Assessment & Plan: Hypertriglyceridemia of 442 on 08/09, likely secondary to propofol. Discontinue propofol and switch to precedex (5) History of CAD (coronary artery disease) Status: Resolved Assessment & Plan: -Appreciate plan per Cardiology -DVT/PE ppx with Lovenox 40mg SC BID -ASA 81mg PO daily -Lipid panel (6) Altered mental status Status: Acute Assessment & Plan: -Upon admission patient was found to have AMS and was intubated. -Appreciate plan per Critical Care -D/C Rocephin on 08/10, no source of infection/infection ruled-out -Head CT on 08/11 to r/o stroke/encephalopathy as possible reason for failed extubation -Transfer to [facility] on 08/12 for Critical Care and Neurology management Discharge Summary Procedures/Consulations Cardiology, PT, OT, Critical Care Discharge Physical Exam Allergies: Coded Allergies: No Known Drug Allergies (Verified , 07/26/09) Vitals & I&Os Vital Signs Date Time Temp Pulse Resp B/P (MAP) Pulse Ox O2 Delivery O2 Flow Rate FiO2 08/12/22 18:15 61 117/77 08/12/22 18:00 15 94 Mechanical Ventilator 35.00 08/12/22 18:00 35 08/12/22 15:47 36.6 General Appearance: Other (intubated and sedated, patient stirs during physical exam) HEENT: Other (pinpoint pupils bilaterally, reactive to light bilaterally, nystagmus not present) Respiratory: No Accessory Muscle Use, No Respiratory Distress, Other (coarse breath sounds bilaterally) Cardiovascular: Regular Rate, Rhythm Gastrointestinal: Normal Bowel Sounds, Non Tender, Soft Extremity: Other (trace pedal edema bilaterally) Skin: Normal Color, Warm/Dry Neurologic/Psychiatric: Other (intubated and sedated, not responsive to commands) Hospital Course Was the Problem List Reviewed?: Yes Mr. Freedman is a 61 year old male who presented on 08/05 in DKA with AMS. The patient was intubated in the ED due to EMS and failure to respond to commands and admitted to the ICU under the Hospitalist service with Critical Care following. DKA management was initiated with regular insulin drip, IV fluids, and potassium replacement. Ceftriaxone was initiated per Critical Care until infection was ruled-out. Antibiotic therapy was discontinued on 08/10 due to no source or sign of infection aside from oral candidiasis. DKA resolved, however hyperglycemia persisted and the patient was transitioned to sliding scale insulin with long-acting insulin for glycemic control. Multiple SBTs were conducted throughout the patient's stay, all of which were failed. On 08/10, the patient was extubated. The patient's neurological disposition did not improve and the patient was re-intubated for airway protection. CT imaging of the head was unremarkable. On 08/12 the patient was accepted to transfer to [facility] in [place], [place] for further Critical Care management with Neurology following. The patient's family is agreeable to plan. This is a brief summary of the patient's stay. Further details are documented in the patient's chart. Labs (last 24 hrs) Laboratory Tests 08/11/22 20:23: Glucometer 257H 08/12/22 00:01: Glucometer 240H 08/12/22 03:55: White Blood Count 6.7, Red Blood Count 3.21L, Hemoglobin 9.9L, Hematocrit 30L, Mean Corpuscular Volume 95, Mean Corpuscular Hemoglobin 31, Mean Corpuscular Hemoglobin Concent 33, Red Cell Distribution Width 14.0, Platelet Count 193, Mean Platelet Volume 11.4, Immature Granulocyte % (Auto) 1, Neutrophils (%) (Auto) 57, Lymphocytes (%) (Auto) 24, Monocytes (%) (Auto) 15H, Eosinophils (%) (Auto) 4, Basophils (%) (Auto) 0, Neutrophils # (Auto) 3.8, Lymphocytes # (Auto) 1.6, Monocytes # (Auto) 1.0, Eosinophils # (Auto) 0.2, Basophils # (Auto) 0.0, Immature Granulocyte # (Auto) 0.0, Blood Gas Puncture Site R RAD, Blood Gas Patient Temperature 36.7, Arterial Blood pH 7.43, Arterial Blood Partial Pressure CO2 46H, Arterial Blood Partial Pressure O2 73L, Arterial Blood HCO3 31H, Arterial Blood Total CO2 32.0H, Arterial Blood Oxygen Saturation 96, Arterial Blood Base Excess 6.2H, Ashish Test YES-POS, Blood Gas Ventilator Setting YES, Blood Gas Inspired Oxygen 35%, Sodium Level 143, Potassium Level 3.7, Chloride Level 107, Carbon Dioxide Level 27, Anion Gap 9, Blood Urea Nitrogen 14, Creatinine 0.87, Estimat Glomerular Filtration Rate 97, BUN/Creatinine Ratio 16, Glucose Level 212H, Calcium Level 8.5, Corrected Calcium 9.7, Phosphorus Level 3.4, Magnesium Level 1.9, Total Bilirubin 0.3, Aspartate Amino Transf (AST/SGOT) 25, Alanine Aminotransferase (ALT/SGPT) 30, Alkaline Phosphatase 65, Total Protein 5.1L, Albumin 2.5L 08/12/22 11:36: Glucometer 158H 08/12/22 17:56: Glucometer 191H Microbiology 08/11/22 Gram Stain - Final, Resulted 08/11/22 Sputum Culture - Preliminary, Resulted YEAST 08/08/22 Urine Culture - Final, Complete NO GROWTH 08/06/22 Blood Culture - Final, Complete No growth Patient resulted labs reviewed. Pending Labs Laboratory Tests 08/12/22 17:56: Glucometer 191 Imaging: Reviewed Imaging Films, Reviewed Imaging Report Discussion & Recommendations Discharge Planning: <30 minutes discharge planning Discharge Home Medications: Active Scripts Active Reported Aspirin EC (Aspirin) 81 Mg Tablet. 81 Mg PO HS Instructions to patient/family Please see electronic discharge instructions given to patient. KADI DURAND MD 08/13/22 6723: Discharge Summary Discharge Physical Exam Allergies: Coded Allergies: No Known Drug Allergies (Verified , 07/26/09) Supervisory-Addendum Brief Verification & Attestation Participated in pt care: history, MDM, physical Personally performed: exam, history, MDM, supervision of care Care discussed with: Medical Student Procedures: n/a Verification and Attestation of Medical Student E/M Service A medical student performed and documented this service in my presence. I reviewed and verified all information documented by the medical student and made modifications to such information, when appropriate. I personally performed the physical exam and medical decision making. Kadi Durand, Aug 13, 2022,05:20 Problem Qualifiers (1) DKA (diabetic ketoacidosis): Diabetes mellitus type: other specified (including GLADYS) Diabetes mellitus complication detail: without coma Qualified Codes: E13.10 - Other specified diabetes mellitus with ketoacidosis without coma (2) Altered mental status: Altered mental status type: unspecified Qualified Codes: R41.82 - Altered mental status, unspecified SAM ENAMORADO Aug 12, 2022 20:06 KADI DURAND MD Aug 13, 2022 05:20
[2022-08-13] MEDS ORDERED: FOLIC ACID IV SCH (09:00)
[2022-08-13] MEDS ORDERED: THIAMINE IV SCH (09:00)
[2022-08-13] MEDS ORDERED: NS IV SCH (09:00)
[2022-08-13] MEDS ORDERED: FLUCONAZOLE 100 MG/50 ML 50 ML IV SCH (09:00)
== END 2022-08-12 18:45 | disposition short-term general hospital (02) | DRG 637 ==
LOC: EDUNIT# 17:30 → ER 17:32 → ICU 20:52
PROVIDERS: ADMIT Internal Medicine; ATTEND Family Medicine
PROC: 5A1955Z Respiratory Ventilation, Greater than 96 Consecutive Hours (ICD-10-PCS; principal; 2022-08-05)
PROC: 0BH17EZ Insertion of Endotracheal Airway into Trachea, Via Natural or Artificial Opening (ICD-10-PCS; 2022-08-05)
DX: E11.10 Type 2 diabetes mellitus with ketoacidosis without coma (principal); G93.41 Metabolic encephalopathy; J96.01 Acute respiratory failure with hypoxia; I21.A1 Myocardial infarction type 2; N17.9 Acute kidney failure, unspecified; R57.9 Shock, unspecified; B37.0 Candidal stomatitis; E86.0 Dehydration; J44.9 Chronic obstructive pulmonary disease, unspecified; R00.1 Bradycardia, unspecified; I25.10 Atherosclerotic heart disease of native coronary artery without angina pectoris; E78.00 Pure hypercholesterolemia, unspecified; I10 Essential (primary) hypertension; E87.8 Other disorders of electrolyte and fluid balance, not elsewhere classified; I71.43 Infrarenal abdominal aortic aneurysm, without rupture; F17.210 Nicotine dependence, cigarettes, uncomplicated; K76.0 Fatty (change of) liver, not elsewhere classified; R91.1 Solitary pulmonary nodule; R31.9 Hematuria, unspecified; I25.2 Old myocardial infarction; Z82.49 Family history of ischemic heart disease and other diseases of the circulatory system; Z95.5 Presence of coronary angioplasty implant and graft; T50.905A Adverse effect of unspecified drugs, medicaments and biological substances, initial encounter
CPT/HCPCS: 31500; 36415; 51702; 70450; 71045; 74176; 80048; 80053; 80061; 80076; 80306; 80320; 80329; 81000; 82010; 82140; 82150; 82550; 82553; 82746; 82805; 82947; 83020; 83036; 83605; 83690; 83735; 83874; 83880; 84100; 84425; 84443; 84478; 84484; 85007; 85025; 85027; 85379; 85610; 85652; 85730; 86141; 87040; 87070; 87081; 87088; 87205; 87636; 93005; 93041; 93306; 93970; 94002; 94003; 94640; 94799; 96361; 96372; 96374; 96375; 99291

== ENCOUNTER 2023-06-10 05:28 | Outpatient (CLI) | payer OTHER ==
[~2023-06-10] VITALS: Ht 170.9 cm; Wt 93.9 kg
[2023-06-10] MEDS ORDERED: OMEG-154 PO (10:58)
[2023-06-10] MEDS ORDERED: MTP25TSR PO (10:58)
[2023-06-10] MEDS ORDERED: LISI20TA26 PO (10:58)
[2023-06-10] MEDS ORDERED: CYAN1TAB68 PO (10:58)
[2023-06-10] MEDS ORDERED: SEMA1PEN3 SQ (10:58)
[2023-06-10] MEDS ORDERED: ROSU20TA73 PO (10:58)
[2023-06-10] MEDS ORDERED: METF-399 PO (10:58)
[2023-06-10] MEDS ORDERED: ASHW300C2 PO (10:58)
== END 2023-06-10 15:00 | disposition home or self-care (01) ==
LOC: PREOP 05:28
PROVIDERS: ATTEND Specialist
DX: Z01.818 Encounter for other preprocedural examination (principal)